=== PATIENT | female | born 1940 | race American Indian/Alaskan Native ===

== ENCOUNTER 2017-01-24 04:47 | Inpatient (IN) | payer MEDICARE, BC ==
[2017-01-24] MEDS ORDERED: Nitroglycerin 2% Ointment Foilpak UD TOP STA (05:10)
[2017-01-24] MEDS ORDERED: Morphine 2 mg/ml ISec IVP STA (05:10)
--- NOTE | 2017-01-24 05:12 | ED PDOC ---
Arrival/HPI - General Chief Complaint: Chest Pain Time Seen by Provider: 01/24/17 05:00 Historian: Patient - Critical Care Critical Care Minutes: 30 minutes - History of Present Illness Narrative History of Present Illness (Text): 01/24/17 05:08 Daniela Salazar is a 76 year old female, with a history of diabetes, hypertension, and CAD with stents, presents to the emergency department complaining of midsternal chest pain which began few hours prior to arrival. Patient describes quality as a sharp stabbing pain which radiates to the back. Notes that she was cleaning her room when the symptoms initially presented. En route, patient was give 3 81mg Aspirin and nitroglycerin. Denies any shortness of breath. Denies fever, chills, headache, dizziness, nausea, vomiting, diarrhea, urinary symptoms , or any other complaints at this time. Time/Duration: 4-6 hours Symptom Onset: Gradual Symptom Course: Unchanged Severity Level: Mild Activities at Onset: Light Past Medical History - Provider Review Nursing Documentation Reviewed: Yes - Infectious Disease Hx of Infectious Diseases: None - Tetanus Immunization Tetanus Immunization: >10 years Ago - Cardiac Hx Cardiac Disorders: Yes Hx Hypertension: Yes - Pulmonary Hx Respiratory Disorders: No - Neurological Hx Neurological Disorder: Yes Hx Dizziness: Yes Other/Comment: vertigo t-1 - HEENT Hx HEENT Disorder: No - Renal Hx Renal Disorder: No - Endocrine/Metabolic Hx Endocrine Disorders: Yes Hx Diabetes Mellitus Type 2: Yes - Hematological/Oncological Hx Blood Disorders: No - Integumentary Hx Dermatological Disorder: No - Musculoskeletal/Rheumatological Hx Musculoskeletal Disorders: Yes Hx Arthritis: Yes Hx Osteoarthritis: Yes Hx Unsteady Gait: Yes - Gastrointestinal Hx Gastrointestinal Disorders: No - Genitourinary/Gynecological Hx Genitourinary Disorders: Yes Other/Comment: hesitency urinating - Psychiatric Hx Psychophysiologic Disorder: No Hx Substance Use: No - Past Surgical History Past Surgical History: No Previous - Surgical History Hx Hysterectomy: Yes Hx Open Heart Surgery: No Hx Orthopedic Surgery: No Hx Splenectomy: No Hx Valve Replacement: No - Anesthesia Hx Anesthesia: Yes Hx Anesthesia Reactions: No - Suicidal Assessment Feels Threatened In Home Enviroment: No Family/Social History - Physician Review Nursing Documentation Reviewed: Yes Family/Social History: No Known Family HX Smoking Status: Never Smoked Hx Alcohol Use: No Hx Substance Use: No Hx Substance Use Treatment: No Allergies/Home Meds Allergies/Adverse Reactions: Allergies No Known Allergies Allergy (Verified 01/24/17 13:39) Home Medications: Home Meds Medication Instructions Recorded Confirmed Insulin Human NPH/Reg [HumuLIN 15 units SUBCUT HS 12/07/14 01/24/17 70/30 (NPH/Reg)] Insulin Human NPH/Reg [HumuLIN 20 units SUBCUT DAILY 12/07/14 01/24/17 70/30 (NPH/Reg)] Amlodipine Besylate/Benazepril 20 mg PO DAILY 01/24/17 01/24/17 [Amlodipine-Benazepril 2.5-10] Isosorbide Mononitrate [Imdur] 60 mg PO DAILY 01/24/17 01/24/17 Metoprolol Succinate [Metoprolol 100 mg PO DAILY 01/24/17 01/24/17 Succinate Xl] Simvastatin [Zocor] 80 mg PO DAILY 01/24/17 01/24/17 hydroCHLOROthiazide [Hydrodiuril] 25 mg PO DAILY 01/24/17 01/24/17 Review of Systems - Physician Review All systems were reviewed & negative as marked: Yes - Review of Systems Constitutional: Normal. absent: Fatigue, Fevers Respiratory: Normal. absent: SOB, Cough, Sputum Cardiovascular: Chest Pain. absent: Palpitations Gastrointestinal: Normal. absent: Abdominal Pain, Diarrhea, Nausea, Vomiting Genitourinary Female: Normal Musculoskeletal: Back Pain Neurological: Normal. absent: Headache, Dizziness Psychiatric: Normal Physical Exam Vital Signs Reviewed: Yes Vital Signs Temp Pulse Resp BP Pulse Ox 01/24/17 08:35 83 20 164/85 H 94 L 01/24/17 08:25 83 20 164/85 H 01/24/17 07:00 86 18 155/80 H 96 01/24/17 05:55 105 H 20 166/96 H 99 01/24/17 05:22 101 H 158/88 H 01/24/17 04:59 98.3 F 107 H 22 158/88 H 95 Temperature: Afebrile Blood Pressure: Hypertensive Pulse: Tachycardic Respiratory Rate: Normal Appearance: Positive for: Well-Appearing, Non-Toxic, Comfortable Pain Distress: None Mental Status: Positive for: Alert and Oriented X 3 - Systems Exam Head: Present: Atraumatic, Normocephalic Pupils: Present: PERRL Extroacular Muscles: Present: EOMI Conjunctiva: Present: Normal Respiratory/Chest: Present: Clear to Auscultation, Good Air Exchange. No: Respiratory Distress, Accessory Muscle Use Cardiovascular: Present: Regular Rate and Rhythm, Normal S1, S2. No: Murmurs Abdomen: Present: Normal Bowel Sounds. No: Tenderness, Distention, Peritoneal Signs, Rebound, Guarding Upper Extremity: Present: Normal Inspection. No: Cyanosis, Edema Lower Extremity: Present: Normal Inspection. No: Edema Neurological: Present: GCS=15, CN II-XII Intact, Speech Normal Skin: Present: Warm, Dry, Normal Color. No: Rashes Psychiatric: Present: Alert, Oriented x 3, Normal Insight, Normal Concentration Medical Decision Making ED Course and Treatment: 01/24/17 05:14 Impression: A 76 year old female who presents to the emergency department complaining of midsternal chest pain radiating to the back. Plan: -- EKG -- Labs, cardiac enzymes -- Chest X-ray -- Aspirin -- Metaprolol -- Morphine -- Nitroglycerin -- Reassess and disposition Progress Notes: 01/24/17 05:16 EKG interpreted by me: Sinus Tachy @ 109 bpm. RBBB. lateral T wave changes. 01/24/17 06:53 Case was d/w .Accepted to his service. on consult.Call placed to his service. - Lab Interpretations Lab Results: 01/24/17 05:10 01/24/17 05:10 Lab Results 01/24/17 05:10: WBC 6.3 D, RBC 4.12, Hgb 11.6 L, Hct 34.3 L, MCV 83.3, MCH 28.2 , MCHC 33.8, RDW 14.3, Plt Count 274, MPV 11.4 H, PT 10.0, INR 0.93, APTT 26.3, Sodium 140, Potassium 4.5, Chloride 104, Carbon Dioxide 24, Anion Gap 17, BUN 38 H, Creatinine 1.5 H, Est GFR ( Amer) 41, Est GFR (Non-Af Amer) 34, Random Glucose 184 H, Calcium 9.1, Total Bilirubin 0.5, AST 23, ALT 31, Alkaline Phosphatase 104, Lactate Dehydrogenase 566, Total Creatine Kinase 73, Troponin I 0.30 H* D, Total Protein 7.4, Albumin 4.0, Globulin 3.4, Albumin/ Globulin Ratio 1.2 - RAD Interpretation Radiology Orders: 01/24/17 05:09 CHEST PORTABLE [RAD] Stat - Medication Orders Current Medication Orders: Acetaminophen (Tylenol 325mg Tab) 650 mg PO Q4H PRN PRN Reason: Pain, moderate (4-7) Alprazolam (Xanax) 0.25 mg PO BID PRN PRN Reason: Anxiety Stop: 02/03/17 08:39 Aspirin (Ecotrin) 81 mg PO DAILY [facility] Last Admin: 01/27/17 10:00 Dose: Atorvastatin Calcium (Lipitor) 40 mg PO DIN [facility] Last Admin: 01/26/17 17:34 Dose: 40 MG Clopidogrel Bisulfate (Plavix) 75 mg PO DAILY [facility] Last Admin: 01/27/17 10:00 Dose: Insulin Human Regular (Humulin R Med) 0 units SC ACHS [facility] PRN Reason: Protocol Last Admin: 01/27/17 07:57 Dose: Lisinopril (Zestril) 10 mg PO DAILY [facility] Last Admin: 01/26/17 09:01 Dose: 10 MG Metoprolol Succinate (Toprol Xl) 100 mg PO DAILY [facility] Last Admin: 01/27/17 10:00 Dose: Discontinued Medications Aspirin (Aspirin) 325 mg PO ONCE STA Stop: 01/24/17 05:11 Last Admin: 01/24/17 05:22 Dose: 325 MG Atorvastatin Calcium (Lipitor) 40 mg PO STAT STA Stop: 01/24/17 07:36 Last Admin: 01/24/17 07:55 Dose: 40 MG Atropine Sulfate (Atropine) Confirm Administered Dose 1 mg .ROUTE .STK-MED ONE Stop: 01/27/17 06:58 Last Admin: 01/27/17 07:58 Dose: 1 MG Comments: given IV as per Dr. Negro Atropine Sulfate (Atropine) Confirm Administered Dose 1 mg .ROUTE .STK-MED ONE Stop: 01/27/17 12:39 Bacitracin (Bacitracin) Confirm Administered Dose 1 ea .ROUTE .STK-MED ONE Stop: 01/27/17 12:38 Clopidogrel Bisulfate (Plavix) 300 mg PO ONCE ONE Stop: 01/25/17 14:59 Last Admin: 01/25/17 15:55 Dose: 300 MG Diphenhydramine HCl (Benadryl) Confirm Administered Dose 50 mg .ROUTE .STK-MED ONE Stop: 01/27/17 07:42 Last Admin: 01/27/17 07:40 Dose: 50 MG Comments: given IV as per Dr. Negro Fentanyl (Fentanyl) Confirm Administered Dose 100 mcg .ROUTE .STK-MED ONE Stop: 01/27/17 07:42 Last Admin: 01/27/17 07:49 Dose: 50 MCG Comments: given IV by Dr. Negro MAR Pain Assessment Document 01/27/17 07:49 [facility] (Rec: 01/27/17 10:13 [facility] [id number]) Pain Reassessment Is this a pain reassessment? No Heparin Sodium (Porcine) (Heparin) 5,000 units IV ONCE STA Stop: 01/24/17 06:52 Last Admin: 01/24/17 07:00 Dose: 5,000 UNITS eMAR Start Stop Document 01/24/17 07:00 YP (Rec: 01/24/17 07:02 YP [id number]) Intravenous Solution Start Date 01/24/17 Start Time 07:02 Heparin Sodium (Porcine) (Heparin) Confirm Administered Dose 10,000 units .ROUTE .STK-MED ONE Stop: 01/27/17 06:59 Last Admin: 01/27/17 07:57 Dose: 4,000 UNITS Comments: given IV as per Dr. Negro Home Med (A C T [place]) Confirm Administered Dose 1 unit XX .STK-MED ONE Stop: 01/27/17 09:27 Home Med (A C T [place]) Confirm Administered Dose 1 unit XX .STK-MED ONE Stop: 01/27/17 12:37 Hydralazine HCl (Apresoline) Confirm Administered Dose 20 mg .ROUTE .STK-MED ONE Stop: 01/27/17 08:28 Last Admin: 01/27/17 08:28 Dose: 20 MG Comments: 0828 10mg given IV as per Dr. Negro 0834 10mg given IV as per Dr. Negro Heparin Sodium/Sodium Chloride (Heparin 90634 Units/250ml 1/2 Normal Saline) 250 mls @ 10 mls/hr IV .Q24H PRN; Protocol; 1,000 UNITS/HR PRN Reason: ADJUST RATE PER MD ORDER Last Admin: 01/26/17 09:02 Dose: 10 MLS/HR Titration Intervention Document 01/26/17 09:02 DEL (Rec: 01/26/17 09:02 DEL [id number]) Titration Intake Container Volume 250 Titration Dosing Titration Dose 1,000 IV Rate 10 Intake/Decrease Running eMAR Start Stop Document 01/26/17 09:02 DEL (Rec: 01/26/17 09:02 [facility] [id number]) Intravenous Solution Start Date 01/26/17 Start Time 09:02 Sodium Chloride (Sodium Chloride 0.45%) 1,000 mls @ 50 mls/hr IV .Q20H LEON Last Admin: 01/26/17 18:54 Dose: 50 MLS/HR eMAR Start Stop Document 01/26/17 18:54 DEL (Rec: 01/26/17 18:54 DEL [id number]) Intravenous Solution Start Date 01/26/17 Start Time 18:54 Heparin Sodium (Porcine) (Heparin 1000 Units/500 Ml Ns) Confirm Administered Dose 1,500 mls @ ud IV .STK-MED ONE Stop: 01/27/17 06:59 Iodixanol (Visipaque) Confirm Administered Dose 150 ml IV .STK-MED ONE Stop: 01/27/17 06:59 Iodixanol (Visipaque 320 Mg/Ml 100 Ml) Confirm Administered Dose 100 ml IV .STK- MED ONE Stop: 01/27/17 08:23 Last Admin: 01/27/17 10:14 Dose: Iohexol (Omnipaque 350mg/Ml 50 Ml) Confirm Administered Dose 50 ml .ROUTE .STK- MED ONE Stop: 01/27/17 07:57 Lidocaine HCl (Lidocaine 2% 20ml Vial) Confirm Administered Dose 20 ml .ROUTE .STK-MED ONE Stop: 01/27/17 06:58 Last Admin: 01/27/17 07:50 Dose: 8 ML Comments: given subcutaneously by Dr. Negro Metoprolol Tartrate (Lopressor) 25 mg PO ONCE STA Stop: 01/24/17 05:11 Last Admin: 01/24/17 05:22 Dose: 25 MG MAR Pulse and Blood Pressure Document 01/24/17 05:22 YP (Rec: 01/24/17 05:23 YP [id number]) Pulse Pulse Rate (60-90) 101 Blood Pressure Blood Pressure (100/60-150/90) 158/88 Midazolam HCl (Versed Inj) Confirm Administered Dose 2 mg .ROUTE .STK-MED ONE Stop: 01/27/17 07:42 Last Admin: 01/27/17 07:49 Dose: 2 MG Comments: given IV by Dr. Negro Morphine Sulfate (Morphine) 2 mg IVP STAT STA Stop: 01/24/17 05:11 Last Admin: 01/24/17 05:23 Dose: 2 MG MAR Pain Assessment Document 01/24/17 05:23 YP (Rec: 01/24/17 05:23 YP [id number]) Pain Reassessment Is this a pain reassessment? No Sleep Is patient sleeping during reassessment? No Presence of Pain Presence of Pain Yes IVP Administration Document 01/24/17 05:23 YP (Rec: 01/24/17 05:23 YP [id number]) Charges for Administration # of IVP Administrations 1 Nitroglycerin (Nitro-Bid 2% Oint) 1 ea TOP ONCE STA Stop: 01/24/17 05:11 Last Admin: 01/24/17 05:23 Dose: 1 EA Non-Formulary Medication (Metoprolol Succinate [Metoprolol Succinate]) 100 mg PO DAILY LEON Ondansetron HCl (Zofran Inj) 4 mg IVP ONCE ONE Stop: 01/27/17 10:03 Last Admin: 01/27/17 10:15 Dose: 4 MG IVP Administration Document 01/27/17 10:15 SG (Rec: 01/27/17 10:15 SG [id number]) Charges for Administration # of IVP Administrations 1 Pneumococcal Polyvalent Vaccine (Pneumovax 23 Vaccine) 0.5 ml IM .ONCE ONE Stop: 01/24/17 17:25 - Scribe Statement The provider has reviewed the documentation as recorded by the Nik Levin Provider Attestation: All medical record entries made by the Nik were at my direction and personally dictated by me. I have reviewed the chart and agree that the record accurately reflects my personal performance of the history, physical exam, medical decision making, and the department course for this patient. I have also personally directed, reviewed, and agree with the discharge instructions and disposition. Disposition/Present on Arrival - Present on Arrival Any Indicators Present on Arrival: No History of DVT/PE: No History of Uncontrolled Diabetes: No Urinary Catheter: No History of Decub. Ulcer: No History Surgical Site Infection Following: None - Disposition Have Diagnosis and Disposition been Completed?: Yes Diagnosis: Chest pain, NSTEMI (non-ST elevated myocardial infarction) Disposition: HOSPITALIZED Disposition Time: 06:50 Patient Plan: ICU Patient Problems: Current Active Problems Problem Status Diagnosed Chest pain Acute NSTEMI (non-ST elevated myocardial infarction) Acute Condition: STABLE
[2017-01-24 05:38] LABS: HEMATOCRIT 34.3 % (36.0-48.0); MEAN CELL VOLUME 83.3 fL (80.0-105.0); MEAN CORPUSCULAR HEMOGLOBIN 28.2 pg (25.0-35.0); MEAN CORPUSCULAR HGB CONC 33.8 g/dl (31.0-37.0); MEAN PLATELET VOLUME 11.4 fl (7.0-11.0); RED CELL DISTRIBUTION WIDTH 14.3 % (11.5-14.5); WHITE BLOOD COUNT 6.3 10^3/ul (4.5-11.0)
[2017-01-24 05:44] LABS: ALB/GLOB RATIO 1.2 (1.1-1.8); BILIRUBIN,TOTAL 0.5 mg/dL (0.2-1.3); CALCIUM 9.1 mg/dL (8.4-10.5); POTASSIUM 4.5 mmol/L (3.6-5.0); TOTAL PROTEIN 7.4 g/dL (5.8-8.3)
[2017-01-24 05:48] LABS: INR 0.93 (0.93-1.08); PARTIAL THROMBOPLASTIN TIME 26.3 Seconds (23.7-30.8)
[2017-01-24 06:43] LABS: TROPONIN I 0.3 ng/mL
[2017-01-24] MEDS: Heparin25000 units/250ml 1/2NS 250 ML IV PRN (07:02)
--- NOTE | 2017-01-24 08:20 | HP ---
CHIEF COMPLAINT AND HISTORY OF PRESENT ILLNESS: This is a 76-year-old female who is coming into the hospital with a past medical history of hypertension, diabetes type 2, coronary artery disease with s florian. She says that she sees Dr. Benson, who is her sanding machine tender. She started having substernal chest pain. She says it was stabbing, it was radiating to the back. She said the pain was about 4-5 /10. She said this happened while she was exerting herself and cleaning her room. She had no diapho resis, no nausea, no vomiting, no dysuria or frequency. No abdominal pain, no lower back pain, no dy suria, no weakness in the arms or the legs. REVIEW OF SYSTEMS: All other review of symptoms are within normal limits, except as mentioned. ALLERGIES: No known drug allergies. HOME MEDICATIONS: 1. Amlodipine/benazepril. 2. Hydrochlorothiazide. 3. Insulin 70/30 as 50 and 20 units. 4. Isosorbide. 5. Metoprolol. 6. Simvastatin. PAST MEDICAL HISTORY: As above. 1. Hypertension. 2. Dyslipidemia. 3. Diabetes type 2. 4. Osteoarthritis. SOCIAL HISTORY: She says she does not smoke or drink. She lives at home. FAMILY HISTORY: She says her parents of old age. VITALS: Temperature is 98.3, pulse of 107, blood pressure is 158/88, respiration is 22, O2 saturatio n 95%. Height is 5 feet 4 inches. Weight is 166 pounds, BMI is 20.5. PHYSICAL EXAMINATION: GENERAL: Patient lying in bed, flat, and in no apparent distress. HEAD AND NECK EXAM: Atraumatic, normocephalic. Conjunctivae are pink. Throat clear and mouth with moist mucosa. Oropharynx benign. EYES: Extraocular movements are intact. PERRLA. NECK: Supple. No JVD, thyromegaly, or adenopathy. No bruits. HEART: S1 and S2 regular rate and rhythm. No murmurs, rubs, or gallops. LUNGS: Clear to auscultation bilaterally. No wheezing rales or rhonchi appreciated. No retraction s on exam. ABDOMEN: Soft, nontender, nondistended. Bowel sounds are positive in all quadrants. No rebound. No hepatosplenomegaly. EXTREMITIES: No cyanosis, clubbing, or edema. NEURO: No facial asymmetry, tongue is midline, no uvula deviation. Power is 5/5 in upper extremity and 5/5 in lower extremity. Sensation is normal in upper extremity and lower extremity. PSYCH: Awake, alert, oriented x3. No anxiety or depression symptoms. Good insight. Normal affec t. : No CVA tenderness VASCULAR: 2+ pulses in carotid and pedal pulses. SKIN: No erythema or abnormal nodules noted. SPINE: Normal curvature. LYMPHADENOPATHY: No anterior cervical or posterior cervical adenopathy. No inguinal adenopathy. LABORATORIES: White count of 6.3, hemoglobin 11.6. INR is 0.93. Chemistry shows sodium is 140, pot assium is 4.5, creatinine is 1.5. Baseline creatinine is 1.3. Bicarb of 24, albumin is 4.0. Chest x-ray shows no infiltrates. EKG shows sinus tachycardia at 109, right bundle branch block, some nonspecific ST-T wave changes. ASSESSMENT: 1. Chest pain. 2. Coronary artery disease with stenting. 3. Diabetes type 2. 4. Hypertension. 5. Dyslipidemia. PLAN: The patient is going to be admitted to the hospital. She has a history of coronary artery dis ease. She is going to be placed on heparin. She will need evaluation by Dr. Benson. She does have a troponin that is positive. She is going to be placed on aspirin, beta-blockers, metoprolol. She i s going to be placed on insulin. The patient is on simvastatin for dyslipidemia. Will await further input from the sanding machine tender. Will do fingersticks and insulin sliding scale. Jose Berkowitz MD cc: [id number] TT: 01/24/2017 08:19:10 alex
--- NOTE | 2017-01-24 09:13 | RAD ---
HISTORY: chest pain COMPARISON: 12/07/2014 FINDINGS: LUNGS: No active pulmonary disease. PLEURA: No significant pleural effusion identified, no pneumothorax apparent. CARDIOVASCULAR: Normal. OSSEOUS STRUCTURES: No significant abnormalities. VISUALIZED UPPER ABDOMEN: Normal. OTHER FINDINGS: None. IMPRESSION: No active disease.
--- NOTE | 2017-01-24 09:37 | CARD ---
APPROVED REPORT EKG Measurement Heart [id number] <Conclusion> Sinus tachycardia Possible Left atrial enlargement Right bundle branch block with ST elevations V 3 - 5 STTW changes c/w ischemia and possible injury pattern, new IMI, old
[2017-01-24] MEDS ORDERED: METOPROLOL SUCCINATE 100 MG PO SCH (10:00)
[2017-01-24] MEDS: Metoprolol Succinate 100 mg XL Tab PO SCH (10:18)
[2017-01-24] MEDS: Insulin Reg-MEDIUM-Coverage SC SCH ×3 (12:15→22:38)
[2017-01-24] MEDS: Insulin Human NPH/Reg 70/30 Vial(3 ml) SC SCH (16:42)
[2017-01-24 17:24] VITALS: BMI 28.5
[2017-01-24] MEDS ORDERED: Pneumococcal 23-Valent Vaccine IM ONE (17:24)
--- NOTE | 2017-01-25 08:08 | PN ---
DATE: 01/25/2017 SUBJECTIVE: The patient has no complaints of any chest pain or shortness of breath, no headaches or dizziness. PHYSICAL EXAMINATION: VITAL SIGNS: Temperature is 98.2, pulse of 99, blood pressure 147/85, respirations 20. GENERAL: The patient comfortable, in no acute distress. HEENT: Anicteric sclerae. Moist mucosa. NECK: No JVD or adenopathy. CARDIAC: S1/S2. No murmurs. No rubs. Regular. RESPIRATORY: Clear to auscultation bilaterally. No wheezes, rales, or rhonchi. Good air entry. ABDOMEN: Bowel sounds are positive, soft, nontender, and nondistended. EXTREMITIES: No edema. Has 1+ pulses. LABS: White count is 6.3, hemoglobin 11.6, potassium is 4.5, creatinine is 1.5. ASSESSMENT: 1. Chest pain. 2. Coronary artery disease with stenting. 3. Diabetes, type 2. 4. Hypertension. 5. Dyslipidemia. PLAN: The patient is currently comfortable. She is on heparin for her elevated troponins. She has had 3 troponins that have been elevated. Dr. Benson had been placed on consult. She is on metoprolo l. She is on lisinopril for her hypertension. She is tolerating her diet. She is going to continue with aspirin daily; she was given a dose yesterday. Will await further input from Dr. Benson. Jose Berkowitz MD cc: [id number] TT: 01/25/2017 08:08:16 Confirmation # [id number] Dictation # [id number] mn
[2017-01-25] MEDS: Insulin Reg-MEDIUM-Coverage SC SCH ×3 (08:18→16:26)
[2017-01-25] MEDS: Insulin Human NPH/Reg 70/30 Vial(3 ml) SC SCH ×2 (08:19→16:26)
[2017-01-25] MEDS: Heparin25000 units/250ml 1/2NS 250 ML IV PRN (08:43)
[2017-01-25 09:38] LABS: BILIRUBIN,TOTAL 0.6 mg/dL (0.2-1.3); CALCIUM 9.2 mg/dL (8.4-10.5); MAGNESIUM 2.1 mg/dL (1.7-2.2); POTASSIUM 4.5 mmol/L (3.6-5.0); TOTAL PROTEIN 8.1 g/dL (5.8-8.3)
[2017-01-25 10:06] LABS: ADD MANUAL DIFF? NO
[2017-01-25 10:10] LABS: BASO # 0.02 K/mm3 (0.0-2.0); BASO % 0.3 % (0.0-3.0); EOS # 0.2 (0.0-0.7); EOS % 2.6 % (1.5-5.0); GRAN % 55.9 % (50.0-68.0); HEMATOCRIT 35.1 % (36.0-48.0); LYMPH # 2.2 (1.2-3.4); LYMPH % 33.6 % (22.0-35.0); MEAN CELL VOLUME 83.6 fL (80.0-105.0); MEAN CORPUSCULAR HEMOGLOBIN 27.4 pg (25.0-35.0); MEAN CORPUSCULAR HGB CONC 32.8 g/dl (31.0-37.0); MEAN PLATELET VOLUME 11.6 fl (7.0-11.0); MONO # 0.5 (0.1-0.6); MONO % 7.6 % (1.0-6.0); PLATELET COUNT 277 10^3/uL (120.0-450.0); RED CELL DISTRIBUTION WIDTH 14.4 % (11.5-14.5); WHITE BLOOD COUNT 6.5 10^3/ul (4.5-11.0)
[2017-01-25] MEDS: Metoprolol Succinate 100 mg XL Tab PO SCH (10:14)
[2017-01-25 10:51] LABS: THYROID STIMULATING HORMONE 3.99 mIU/mL (0.46-4.68)
--- NOTE | 2017-01-25 15:31 | CON ---
DATE: 01/25/2017 REQUESTING PHYSICIAN: Dr. Berkowitz. REASON FOR CONSULTATION: Chest pain. HISTORY OF PRESENT ILLNESS: This is a 76-year-old woman known to us. The patient was admitted with retrosternal chest discomfort. She has known coronary disease and underwent PCI in 1997 with a stent to her obtuse marginal branch. Her last catheterization was in 2003, at which time she was found to have diffuse 3-vessel coronary artery disease and was treated medically. She does have a history of hypertension, diabetes and hyperlipidemia. She has cerebrovascular disease and underwent left carot id endarterectomy in 2003. She has had a prior total abdominal hysterectomy performed as well. She states that her pain was better after eructation and believes that a lot of her symptoms were due to gas. The pain radiated to her back at times. MEDICATIONS: At home include Lotrel, hydrochlorothiazide, insulin, Imdur, metoprolol and simvastatin . SOCIAL HISTORY: She does not smoke or drink. FAMILY HISTORY: Both parents from age-related illness. REVIEW OF SYSTEMS: A 10 point review of systems is otherwise unremarkable. PHYSICAL EXAMINATION: GENERAL: She is an elderly woman who appears comfortable at rest. VITAL SIGNS: Her blood pressure is 150/80 with a pulse of 90 in sinus, respirations are 16. She is currently afebrile. HEENT: No JVD. Pupils equal and react to light and accommodation. NECK: Supple. CHEST: A few scattered rhonchi. HEART: PMI displaced laterally with a systolic murmur left sternal border. ABDOMEN: Soft, nontender, normoactive bowel sounds. EXTREMITIES: No clubbing, cyanosis, edema. SKIN: Warm and dry. PSYCHIATRIC: Normal mood and affect. NEUROLOGIC: Alert and oriented x 3. No gross motor or sensory deficits appreciated. DIAGNOSTIC DATA: Electrocardiogram reveals sinus rhythm with left atrial abnormality, right bundle b ranch block, possible inferior myocardial infarction pattern is noted. Chest x-ray reveals normal ca rdiac silhouette with bilateral clear lung mclaughlin. White count 6.5, hemoglobin and hematocrit 11.5 a nd 35.1 with a platelet count of 277,000. PTT 63.7, potassium 4.5, BUN and creatinine are 31 and 1.4 . Cholesterol 201, triglycerides 269, HDL 47, LDL of 90. Initial troponin was 1.4, repeat 2.73, fol lowup is 1.5. IMPRESSION: 1. Apparent non-ST segment elevation myocardial infarction, clinically stable at present. 2. Known coronary artery disease. 3. Rest of problems as noted. RECOMMENDATIONS: A discussion was had regarding her current situation with the patient and her daugh ter at the bedside. A repeat cardiac catheterization appears appropriate at this time. The timing o f this will need to be arranged. In the interim, a followup EKG and cardiac enzymes will be planned. Plavix will be added to her regimen and beta jaspreet therapy has been initiated. We will continue to follow along and make further recommendations as appropriate. Thank you for this consultation. Guido Negro MD cc: [id number] TT: 01/25/2017 15:30:45 Confirmation # [id number] Dictation # [id number] pantera
--- NOTE | 2017-01-26 08:08 | PN ---
DATE: 01/26/2017 SUBJECTIVE: The patient has no complaints of any chest pain, no shortness of breath, no headaches, n o dizziness. PHYSICAL EXAMINATION: VITAL SIGNS: Temperature is 97.7, pulse of 90, blood pressure is 148/79, respirations 20. GENERAL: The patient comfortable, in no acute distress. HEENT: Anicteric sclerae. Moist mucosa. NECK: No JVD or adenopathy. CARDIAC: S1/S2. No murmurs. No rubs. Regular. RESPIRATORY: Clear to auscultation bilaterally. No wheezes, rales, or rhonchi. Good air entry. ABDOMEN: Bowel sounds are positive, soft, nontender, and nondistended. EXTREMITIES: No edema. Has 1+ pulses. LABORATORIES: White count of 6.5, hemoglobin 11.5. Creatinine is 1.4. ASSESSMENT: 1. Non-ST elevation myocardial infarction. 2. Coronary artery disease with stent. 3. Diabetes type 2. 4. Hypertension. 5. Dyslipidemia. PLAN: The patient is currently comfortable. She is being followed by cardiology. She may need a ca rdiac catheterization. The patient is on aspirin and metoprolol for coronary artery disease. The pa wyatt is on insulin for her diabetes. She is on Lipitor for dyslipidemia. She is going to be on Zes tril for hypertension. She is on carbohydrate consistent diet. We will await input from cardiology about the timing of her cath. Jose Berkowitz MD cc: [id number] TT: 01/26/2017 08:08:26 Confirmation # [id number] Dictation # [id number]
[2017-01-26] MEDS: Insulin Human NPH/Reg 70/30 Vial(3 ml) SC SCH ×2 (08:29→17:29)
[2017-01-26] MEDS: Insulin Reg-MEDIUM-Coverage SC SCH ×5 (08:30→23:56)
[2017-01-26 08:33] LABS: CALCIUM 9.2 mg/dL (8.4-10.5); POTASSIUM 4.3 mmol/L (3.6-5.0)
[2017-01-26 08:33] LABS: HEMATOCRIT 36.1 % (36.0-48.0); MEAN CORPUSCULAR HEMOGLOBIN 27.2 pg (25.0-35.0); MEAN CORPUSCULAR HGB CONC 32.4 g/dl (31.0-37.0); RED CELL DISTRIBUTION WIDTH 14.8 % (11.5-14.5); WHITE BLOOD COUNT 6.8 10^3/ul (4.5-11.0)
[2017-01-26 08:48] LABS: TROPONIN I 1.07 ng/mL
[2017-01-26] MEDS: Metoprolol Succinate 100 mg XL Tab PO SCH (09:01)
[2017-01-26] MEDS: Heparin25000 units/250ml 1/2NS 250 ML IV PRN (09:02)
--- NOTE | 2017-01-26 09:38 | CP.PCM.PN ---
Subjective - Date & Time of Evaluation Date of Evaluation: 01/26/17 Time of Evaluation: 08:00 - Subjective Subjective: Stable on 2R. No chest pain or SOB. She feels better. I discussed her case with Dr. Negro. Cath advised>tomorrow AM. V/S noted. RSR PE: Lungs: clear Cor.: S1S2 Abd.: soft. Ext.: no edema Neuro.; alert ECG: RSR, RBBB, STTW changes Trop = 1.07 Objective - Vital Signs/Intake and Output Vital Signs (last 24 hours): Temp Pulse Resp BP Pulse Ox 98.4 F 100 H 20 140/70 96 01/26/17 06:00 01/26/17 09:01 01/26/17 06:00 01/26/17 09:01 01/26/17 06:00 Intake and Output: 01/26/17 01/26/17 06:59 18:59 Intake Total 360 Balance 360 - Medications Medications: Current Medications Aspirin (Ecotrin) 81 mg PO DAILY ON LICENSE OF [facility] Last Admin: 01/26/17 09:02 Dose: 81 mg Atorvastatin Calcium (Lipitor) 40 mg PO DIN ON LICENSE OF [facility] Last Admin: 01/25/17 16:26 Dose: 40 mg Clopidogrel Bisulfate (Plavix) 75 mg PO DAILY ON LICENSE OF [facility] Last Admin: 01/26/17 09:01 Dose: 75 mg Heparin Sodium/Sodium Chloride (Heparin 80412 Units/250ml 1/2 Normal Saline) 250 mls @ 10 mls/hr IV .Q24H PRN; Protocol; 1,000 UNITS/HR PRN Reason: ADJUST RATE PER MD ORDER Last Admin: 01/26/17 09:02 Dose: 10 mls/hr Insulin Human Regular (Humulin R Med) 0 units SC ACHS ON LICENSE OF [facility] PRN Reason: Protocol Last Admin: 01/26/17 08:30 Dose: Not Given Lisinopril (Zestril) 10 mg PO DAILY ON LICENSE OF [facility] Last Admin: 01/26/17 09:01 Dose: 10 mg Metoprolol Succinate (Toprol Xl) 100 mg PO DAILY ON LICENSE OF [facility] Last Admin: 01/26/17 09:01 Dose: 100 mg - Labs Labs: 01/26/17 07:00 01/26/17 07:20 PT 10.0 Seconds (9.9-11.8) 01/24/17 05:10 INR 0.93 (0.93-1.08) 01/24/17 05:10 APTT 63.9 Seconds (23.7-30.8) H 01/26/17 07:00 Assessment and Plan - Assessment and Plan (Free Text) Plan: Assessment: CP/Acute [place] CAD/remote PCI HBP Diabetes HLD CVD/CEA CKD, Cr 1.6 today Plan: Cardiac cath/Poss PCI in AM 4/14 Continue current meds IVF tonight pre-cath OOB to chair. Additional recs to follow cath.
--- NOTE | 2017-01-26 10:41 | CARD ---
APPROVED REPORT EKG Measurement Heart [id number] NV [id number] [id number] <Conclusion> Normal sinus rhythm Right bundle branch block T wave abnormality, consider lateral ischemia Abnormal ECG
[2017-01-26] MEDS ORDERED: Sodium Chloride 0.45% 1,000 ML IV SCH (19:00)
[2017-01-27] MEDS: Metoprolol Succinate 100 mg XL Tab PO SCH ×2 (06:48→10:00)
[2017-01-27] MEDS ORDERED: Lidocaine 2% Inj (20ml) ONE (06:57)
[2017-01-27] MEDS ORDERED: Iodixanol 320 mg/ml 150 ml Bottle IV ONE (06:58)
[2017-01-27] MEDS ORDERED: DiphenhydrAMINE 50 mg/ml Inj ONE (07:41)
[2017-01-27] MEDS ORDERED: Midazolam 2 MG/2 ML VIAL ONE (07:41)
[2017-01-27] MEDS ORDERED: Iohexol 350mgl/ml 50 ML ONE (07:56)
[2017-01-27] MEDS: Insulin Reg-MEDIUM-Coverage SC SCH ×4 (07:57→21:35)
--- NOTE | 2017-01-27 07:57 | CP.PCM.PN ---
Subjective - Date & Time of Evaluation Date of Evaluation: 01/27/17 Time of Evaluation: 07:00 - Subjective Subjective: Stable on 2R. Quiet night. No CP or SOB. V/S noted PE: Lungs: clear Cor.: S1S2 Abd.: soft Ext.: no edema Neuro.: alert Echo: Prelim: Nl LV Labs pending. Objective - Vital Signs/Intake and Output Vital Signs (last 24 hours): Temp Pulse Resp BP Pulse Ox 98.2 F 89 20 143/84 94 L 01/27/17 06:00 01/27/17 06:48 01/27/17 06:00 01/27/17 06:48 01/27/17 06:00 Intake and Output: 01/27/17 01/27/17 06:59 18:59 Intake Total 1240 Balance 1240 - Medications Medications: Current Medications Aspirin (Ecotrin) 81 mg PO DAILY [facility] Last Admin: 01/27/17 06:48 Dose: 81 mg Atorvastatin Calcium (Lipitor) 40 mg PO DIN [facility] Last Admin: 01/26/17 17:34 Dose: 40 mg Clopidogrel Bisulfate (Plavix) 75 mg PO DAILY [facility] Last Admin: 01/27/17 06:48 Dose: 75 mg Heparin Sodium/Sodium Chloride (Heparin 14736 Units/250ml 1/2 Normal Saline) 250 mls @ 10 mls/hr IV .Q24H PRN; Protocol; 1,000 UNITS/HR PRN Reason: ADJUST RATE PER MD ORDER Last Admin: 01/26/17 09:02 Dose: 10 mls/hr Sodium Chloride (Sodium Chloride 0.45%) 1,000 mls @ 50 mls/hr IV .Q20H [facility] Last Admin: 01/26/17 18:54 Dose: 50 mls/hr Insulin Human Regular (Humulin R Med) 0 units SC ACHS [facility] PRN Reason: Protocol Last Admin: 01/26/17 23:56 Dose: Not Given Lisinopril (Zestril) 10 mg PO DAILY [facility] Last Admin: 01/26/17 09:01 Dose: 10 mg Metoprolol Succinate (Toprol Xl) 100 mg PO DAILY [facility] Last Admin: 01/27/17 06:48 Dose: 100 mg - Labs Labs: 01/26/17 07:00 01/26/17 07:20 PT 10.0 Seconds (9.9-11.8) 01/24/17 05:10 INR 0.93 (0.93-1.08) 01/24/17 05:10 APTT 36.4 Seconds (23.7-30.8) H 01/27/17 06:55 Assessment and Plan - Assessment and Plan (Free Text) Plan: Assessment: CP/SOB/+ trops/acute [place] CAD/remote PCIs HBP Diabetes HLD CVD/CEA Plan: Cardiac cath/cor. angios/pos. PCI today Additional recs to follow.
[2017-01-27] MEDS ORDERED: Iodixanol 320 MG/ML 100 ML BOTTLE IV ONE (08:22)
--- NOTE | 2017-01-27 09:22 | CARDCATH ---
PROCEDURE DATE: 01/27/2017 PROCEDURES: 1. Selective left and right coronary angiography. 2. Left ventriculography. 3. PCI of mid LAD with drug-eluting stent. 4. Temporary transvenous pacemaker placement. 5. Right femoral arteriography. 6. Angio-Seal deployment. HISTORY OF PRESENT ILLNESS: This is a 76-year-old woman with known coronary artery disease, admitted with a non-ST segment elevation myocardial infarction. Cardiac catheterization was advised. INDICATION: Myocardial infarction. FINDINGS: HEMODYNAMICS: The aortic pressure was 180/70 with a left ventricular pressure of 180/20. CORONARY ANATOMY: 1. The left mainstem was calcified and normal. 2. Left anterior descending artery had a patent stent in its mid portion. Shortly beyond the stente d segment in the mid portion, there was a 95% stenosis in a tortuous segment of the vessel. The LAD was large and wrapped around the apex. CIARA grade III flow was present. The diagonal branches had m ild disease. 3. The left circumflex artery gave rise to 2 moderate sized obtuse marginal branches. In the mid po rtion of the circumflex, there was an 80% stenosis present. 4. The right coronary artery was large and dominant and mildly calcified. In the mid portion of the vessel, there was a 70% stenosis present and the early distal segment also had a 70% irregular steno sis. The posterolateral branch appeared occluded and filled the left to right collaterals. LEFT VENTRICULOGRAPHY: Left ventriculogram was performed in the [place]ND[place] projection revealing mild apical hypokinesis with interval ejection fraction of 50%. With insertion of the catheter into the left ve ntricle, the patient developed ventricular asystole with non-conducted P waves. The patient had an u nderlying right bundle branch block present. The non-conducted P waves persisted for approximately 2 0 seconds. Atropine was administered. Ultimately, a ventricular escape rhythm returned with narrow complex, which eventually converted to a 2:1 AV block and subsequently sinus rhythm. With restoratio n of the ventricular escape rhythm, she was hemodynamically stable. Given the above findings, a temporary transvenous pacemaker is placed through the right femoral vein for backup pacing purposes in the event any further dysrhythmias occurred during the coronary interve ntion. This was performed under fluoroscopic guidance without difficulty. CORONARY INTERVENTION: 4000 units of intravenous heparin was administered and the ACT was 230 second s during the procedure. A 3.5 EBU guide catheter was utilized and the lesion in the LAD successfully crossed with use of a [place] wire. Following this, a 2.5 mm x 10 mm balloon was advanced to the sit e of the lesion and inflated to 8 atmospheres. The balloon was then withdrawn and a 2.75 mm x 12 mm Resolute drug-eluting stent was advanced to the site of the lesion. This was inflated to 9 atmospher es. The stent overlapped the old stent as well distally. The balloon was then withdrawn and a secon d inflation performed at the overlapped segment of the 2 stents to 12 atmospheres. There was 0% resi dual stenosis following the intervention. CIARA 3 grade flow was present. RIGHT FEMORAL ARTERIOGRAPHY: Right femoral arteriogram was performed in the HERNDON protection. This re vealed mild diffuse atherosclerotic disease with mild to moderate vessel calcification in the common iliac. The puncture site in the common femoral artery was closed successfully with deployment of an Angio-Seal device. The venous sheath was sutured in place and will be removed 1-2 hours later once A CT has normalized. CONCLUSIONS: 1. Severe mid left anterior descending stenosis. 2. Patent left anterior descending stent. 3. Severe right coronary artery and circumflex system disease. 4. Mildly reduced left ventricular systolic function. 5. Successful percutaneous coronary intervention of the mid left anterior descending with placement of a 2.75 mm x 12 mm Resolute drug-eluting stent. RECOMMENDATIONS: Aspirin and Plavix therapy will be continued for at least 1 year. Plans will be ma de for staged intervention of the circumflex and right coronary artery. The patient will be observed overnight for any significant dysrhythmias. However, given her baseline right bundle branch block a nd ventricular asystole induced with catheter placement in the left ventricle, this was likely second gennaro to left bundle branch block trauma, which successfully resolved. If she has evidence of conducti on abnormalities, a conduction study can be planned. Guido Negro MD cc: [phone] TT: 01/27/2017 09:21:32 en
[2017-01-27] MEDS ORDERED: A C T ELECTRONICS XX ONE ×2 (09:26→12:36)
--- NOTE | 2017-01-27 10:33 | CARD ---
APPROVED REPORT EXAM: Two-dimensional and M-mode echocardiogram with Doppler and color Doppler. Other Information Quality : AverageRhythm : INDICATION Chest Pain , + trops. 2D DIMENSIONS Left Atrium (2D)3.0 (1.6-4.0cm)IVSd1.2 (0.7-1.1cm) LVDd4.4 (3.9-5.9cm)PWd1.2 (0.7-1.1cm) LVDs3.0 (2.5-4.0cm)FS (%) 30.9 % LVEF (%)58.0 (>50%) M-Mode DIMENSIONS Aortic Root3.20 (2.2-3.7cm)Aortic Cusp Exc.1.30 (1.5-2.0cm) Aortic Valve AoV Peak Fajklzev315.0cm/sAoV VTI44.2cmAO Peak GR.14mmHg LVOT Peak Tpxyjjtu12.7cm/sLVOT VTI20.00cmAO Mean GR.9mmHg AI P 1/2 [id number] Mitral Valve MV E Gdeqlbcm32.3cm/sMV A Xxkblqib132.0cm/sE/A ratio0.4 TDI Lateral E' Peak V12.70cm/sMedial E' Peak V3.80cm/sE/Lateral E'4.4 E/Medial E'14.8 Pulmonary Valve PV Peak Tjoybafp75.9cm/sPV Peak Grad.3mmHg Tricuspid Valve TR Peak Cicdxdoa149vp/sRAP APEGIIXB62uqWoZP Peak Gr.12mmHg [id number] LEFT VENTRICLE The left ventricle is normal size. There is mild concentric left ventricular hypertrophy. The left ventricular function is normal. The left ventricular ejection fraction is within the normal range. There is normal LV segmental wall motion. RIGHT VENTRICLE The right ventricle is normal size. ATRIA The left atrium size is normal. The right atrium size is normal. The interatrial septum is intact with no evidence for an atrial septal defect. AORTIC VALVE The aortic valve is mildly to moderately calcified. There is trace aortic regurgitation. MITRAL VALVE The mitral valve is normal in structure. Mitral regurgitation is trace to mild. TRICUSPID VALVE The tricuspid valve is normal in structure. There is mild tricuspid regurgitation. PULMONIC VALVE The pulmonary valve is normal in structure. GREAT VESSELS The aortic root is normal in size. PERICARDIAL EFFUSION There is no pericardial effusion. <Conclusion> The left ventricle is normal size. There is mild concentric left ventricular hypertrophy. The left ventricular function is normal. The aortic valve is mildly to moderately calcified. Aortic sclerosis vs. mild . There is trace aortic regurgitation. Mitral regurgitation is trace to mild.
--- NOTE | 2017-01-27 11:41 | CARD ---
APPROVED REPORT EKG Measurement Heart [id number] MN [id number] [id number] <Conclusion> Sinus tachycardia Right bundle branch block Inferior infarct, age undetermined STTW changes c/w ischemia
--- NOTE | 2017-01-27 12:18 | PN ---
DATE: 01/27/2017 The patient is a 76-year-old, seen and examined, lying in bed, seems to be comfortable, just came haley k from cardiac catheterization. No chest pain, no shortness of breath. PHYSICAL EXAMINATION: VITAL SIGNS: She is afebrile, pulse 89, respirations 20, blood pressure 143/84. LUNGS: Bilateral fair airflow, no rhonchi or crackle. HEART: S1, S2 audible. ABDOMEN: Soft, nontender, no rebound, no guarding. NEUROLOGIC: She is awake and alert, able to communicate. LABORATORY EXAMINATION: Her PTT is 36.4. Chemistry: Blood sugar is 123, troponin 1.07. ASSESSMENT: 1. Status post myocardial infarction, status post cardiac catheterization and right coronary angiogr aphy was done. 2. Severe mid left anterior descending stenosis with patent left anterior descending stent, severe r ight coronary artery and circumflex disease, so patient had mid left anterior descending stent placem ent done today. 3. Insulin-dependent diabetes. 4. Hyperlipidemia. 5. Hypertension. PLAN: The patient will be monitored closely on vehicle monitor technician. We will follow up her CBC and CMP a nd I will continue her on aspirin. Blood sugar will be monitored closely and once sheath is removed, she will be observed for her groin hematoma. Mack Desai MD cc: [phone] TT: 01/27/2017 12:17:26 Confirmation # [id number] Dictation # [id number] en
[2017-01-27] MEDS ORDERED: Bacitracin 500 Units/gm Oint Foilpak UD ONE (12:37)
[2017-01-27 20:16] LABS: MEAN CELL VOLUME 84.7 fL (80.0-105.0); MEAN CORPUSCULAR HEMOGLOBIN 27.5 pg (25.0-35.0); MEAN CORPUSCULAR HGB CONC 32.5 g/dl (31.0-37.0); MEAN PLATELET VOLUME 11.5 fl (7.0-11.0); RED CELL DISTRIBUTION WIDTH 14.9 % (11.5-14.5); WHITE BLOOD COUNT 6.6 10^3/ul (4.5-11.0)
[2017-01-27 20:26] LABS: CALCIUM 8.8 mg/dL (8.4-10.5); MAGNESIUM 2.1 mg/dL (1.7-2.2); POTASSIUM 4.6 mmol/L (3.6-5.0)
[2017-01-28 07:44] LABS: ADD MANUAL DIFF? NO
[2017-01-28 07:59] LABS: BASO # 0.02 K/mm3 (0.0-2.0); BASO % 0.3 % (0.0-3.0); EOS # 0.1 (0.0-0.7); EOS % 1.9 % (1.5-5.0); GRAN # 4.35 (1.4-6.5); GRAN % 63.3 % (50.0-68.0); HEMATOCRIT 33.1 % (36.0-48.0); LYMPH # 1.8 (1.2-3.4); LYMPH % 25.9 % (22.0-35.0); MEAN CELL VOLUME 85.5 fL (80.0-105.0); MEAN CORPUSCULAR HEMOGLOBIN 27.4 pg (25.0-35.0); MEAN PLATELET VOLUME 11.2 fl (7.0-11.0); MONO # 0.6 (0.1-0.6); MONO % 8.6 % (1.0-6.0); PLATELET COUNT 251 10^3/uL (120.0-450.0); WHITE BLOOD COUNT 6.9 10^3/ul (4.5-11.0)
[2017-01-28] MEDS: Insulin Reg-MEDIUM-Coverage SC SCH ×3 (08:14→16:41)
[2017-01-28 08:21] LABS: CALCIUM 9.1 mg/dL (8.4-10.5); POTASSIUM 4.7 mmol/L (3.6-5.0)
--- NOTE | 2017-01-28 08:34 | CP.PCM.PN ---
Subjective - Date & Time of Evaluation Date of Evaluation: 01/28/17 Time of Evaluation: 08:00 - Subjective Subjective: Stable on 2R. S/P cath/PCI LAD. case d/w Dr. Negro and report noted. She had urinary retention last night>Wu inserted. No CP or SOB. She feels well this AM and wants to go home. V/S noted. RSR. No high grade AVB PE: Lungs: clear Cor.: S1S2 Abd.: soft Ext.: no edema. groin OK. Neuro.: alert ECG: RSR, RBBB, IMI, STTW changes Echo: Nl LV, aortic sclerosis vs. mild , trace AI, trace to mild MR Labs noted. Cr. = 1.8 Objective - Vital Signs/Intake and Output Vital Signs (last 24 hours): Temp Pulse Resp BP Pulse Ox 98.2 F 86 20 151/80 H 98 01/28/17 06:04 01/28/17 06:04 01/28/17 06:04 01/28/17 06:04 01/28/17 06:04 Intake and Output: 01/28/17 01/28/17 06:59 18:59 Intake Total 720 Output Total 1575 Balance -855 - Medications Medications: Current Medications Acetaminophen (Tylenol 325mg Tab) 650 mg PO Q4H PRN PRN Reason: Pain, moderate (4-7) Alprazolam (Xanax) 0.25 mg PO BID PRN PRN Reason: Anxiety Stop: 02/03/17 08:39 Aspirin (Ecotrin) 81 mg PO DAILY [facility] Last Admin: 01/27/17 10:00 Dose: Not Given Atorvastatin Calcium (Lipitor) 40 mg PO DIN [facility] Last Admin: 01/27/17 18:05 Dose: 40 mg Clopidogrel Bisulfate (Plavix) 75 mg PO DAILY [facility] Last Admin: 01/27/17 10:00 Dose: Not Given Insulin Human Regular (Humulin R Med) 0 units SC [facility] PRN Reason: Protocol Last Admin: 01/28/17 08:14 Dose: 1 units Lisinopril (Zestril) 10 mg PO DAILY [facility] Last Admin: 01/27/17 18:05 Dose: 10 mg Metoprolol Succinate (Toprol Xl) 100 mg PO DAILY [facility] Last Admin: 01/27/17 10:00 Dose: Not Given - Labs Labs: 01/28/17 07:41 01/27/17 20:00 PT 10.0 Seconds (9.9-11.8) 01/24/17 05:10 INR 0.93 (0.93-1.08) 01/24/17 05:10 APTT 36.4 Seconds (23.7-30.8) H 01/27/17 06:55 Assessment and Plan - Assessment and Plan (Free Text) Plan: Assessment: CP/SOB/+ trops/acute [place] PCI LAD 01/27/17 with residual severe C.A. and RCA lesions > staged PCIs planned CAD/remote PCIs HBP Diabetes HLD CVD/CEA RBBB with CHB during LVGram. Plan: D/C Wu and ambulate after breakfast. Home later today. D/C meds as on admission + ASA 81/day and Plavix 75/day (min. 1 year). Office f/u next week and will schedule staged C.A. and RCA PCI.
[2017-01-28] MEDS: Metoprolol Succinate 100 mg XL Tab PO SCH (09:31)
[2017-01-28] MEDS ORDERED: Dextrose 5%/0.45% NS 1,000 ML IV SCH (10:30)
[2017-01-28 17:10] VITALS: BP 171/84; PULSE 93; RESP 18; TEMP 98.1; O2SAT 93
--- NOTE | 2017-01-28 20:26 | DS ---
The patient is a 76-year-old, seen and examined, lying in bed, seems to be comfortable. No chest lambert n, no shortness of breath, anxious to go home. PHYSICAL EXAMINATION: VITAL SIGNS: She is afebrile, pulse 89, respirations 20, blood pressure 113/73. LUNGS: Bilateral fair airflow, no rhonchi or crackle. HEART: S1, S2 audible. ABDOMEN: Soft, nontender, no rebound, no guarding. NEUROLOGIC: She is awake and alert, communicative. Moves all extremities. No bruises in the groin. LABORATORY EXAM: WBC 6.9, hemoglobin 10.6, hematocrit 33.1, platelets 251. Chemistry: Sodium 140, potassium 4.7, chloride 105, CO2 of 27, BUN 30, creatinine 1.8, blood sugar of 296. ASSESSMENT AND PLAN: 1. Status post myocardial infarction, status post cardiac catheterization with LAD angioplasty. The patient cardiac cath report reviewed. The patient has diffuse disease in the LAD and RCA, needs sta ged angioplasty. 2. Noninsulin dependent diabetes. 3. Renal insufficiency, stage III, CKD. PLAN: Her Wu catheter has been discontinued. We will give her 75 mL of IV fluid for 3-4 hours si nce her creatinine has bumped up. I got called out in the afternoon after I made around to the patie nt, she was nauseous. She was given Zofran and the patient nurse states that after that she had a bi g bowel movement. Since then, her abdominal pain has improved and she is not nauseous. She is anxio us to go home, so she is being discharged home today. She will resume her medication. I reached out to her on [place] and ordered for Plavix 75 daily. She will maintain on metoprolol 100 m g daily, aspirin 81 daily. She is on Lipitor 80 mg daily, simvastatin 80 mg daily, Isosorbide 60 mg daily. She is on Lotrel and she is on insulin. She will continue all that. She will follow with he r PMD. Mack Desai MD cc: [phone] TT: 01/28/2017 20:25:40 mn
== END 2017-01-28 17:58 | disposition home or self-care (01) | DRG 247 ==
LOC: ED 04:47 → ERH 07:02 → 2RSO 09:07
PROVIDERS: ADMIT Internal Medicine Nephrology; ATTEND Internal Medicine Nephrology
PROC: 027044Z Dilation of Coronary Artery, One Artery with Drug-eluting Intraluminal Device, Percutaneous Endoscopic Approach (ICD-10-PCS; principal; 2017-01-27)
PROC: 4A023N7 Measurement of Cardiac Sampling and Pressure, Left Heart, Percutaneous Approach (ICD-10-PCS; 2017-01-27)
PROC: B2051ZZ Plain Radiography of Left Heart using Low Osmolar Contrast (ICD-10-PCS; 2017-01-27)
PROC: B2011ZZ Plain Radiography of Multiple Coronary Arteries using Low Osmolar Contrast (ICD-10-PCS; 2017-01-27)
PROC: 5A1223Z Performance of Cardiac Pacing, Continuous (ICD-10-PCS; 2017-01-27)
PROC: 0T9B70Z Drainage of Bladder with Drainage Device, Via Natural or Artificial Opening (ICD-10-PCS; 2017-01-28)
DX: I21.4 Non-ST elevation (NSTEMI) myocardial infarction (principal); I25.10 Atherosclerotic heart disease of native coronary artery without angina pectoris; E11.22 Type 2 diabetes mellitus with diabetic chronic kidney disease; N18.3 Chronic kidney disease, stage 3 (moderate); I12.9 Hypertensive chronic kidney disease with stage 1 through stage 4 chronic kidney disease, or unspecified chronic kidney disease; I45.10 Unspecified right bundle-branch block; I44.0 Atrioventricular block, first degree; R33.9 Retention of urine, unspecified; M19.90 Unspecified osteoarthritis, unspecified site; E78.5 Hyperlipidemia, unspecified; Z79.4 Long term (current) use of insulin

== ENCOUNTER 2017-02-26 10:15 | Inpatient (IN) | payer MEDICARE, BC ==
[2017-02-26 10:23] VITALS: BMI 28.7
[2017-02-26] MEDS ORDERED: Morphine 4 mg/ml ISec IVP STA (10:53)
[2017-02-26] MEDS ORDERED: Sodium Chloride 0.9% 1,000 ML IV STA (10:54)
[2017-02-26 10:58] LABS: ADD MANUAL DIFF? NO
--- NOTE | 2017-02-26 11:02 | ED PDOC ---
Arrival/HPI - General Chief Complaint: Chest Pain Time Seen by Provider: 02/26/17 10:18 Historian: Patient, Family - History of Present Illness Narrative History of Present Illness (Text): 02/26/17 10:59 76 year old female, pmh including hypertension/hyperlipidemia/diabetes/cad, complaining of chest pain started about 2 hours ago which she took 3 tablets of aspirin 81mg po. Pt. stated that she woke up this morning with the rt. lower back pain which causing her to have lt. sided chest pain for couple of seconds, relief with the 3 tablets of aspirin, cardiac cath done on 01/27/2017 show there is severe mid left anterior descending stenosis with severe right coronary artery and circumflex system disease, no dizziness, no palpitation, no urinary symptoms, no other medical or psychological complaints. Past Medical History - Provider Review Nursing Documentation Reviewed: Yes - Infectious Disease Hx of Infectious Diseases: None - Tetanus Immunization Tetanus Immunization: >10 years Ago - Cardiac Hx Cardiac Disorders: Yes Hx Hypertension: Yes - Pulmonary Hx Respiratory Disorders: No - Neurological Hx Neurological Disorder: Yes Hx Dizziness: Yes Other/Comment: vertigo t-1 - HEENT Hx HEENT Disorder: No - Renal Hx Renal Disorder: No - Endocrine/Metabolic Hx Endocrine Disorders: Yes Hx Diabetes Mellitus Type 2: Yes - Hematological/Oncological Hx Blood Disorders: No - Integumentary Hx Dermatological Disorder: No - Musculoskeletal/Rheumatological Hx Falls: Yes - Gastrointestinal Hx Gastrointestinal Disorders: No - Genitourinary/Gynecological Hx Genitourinary Disorders: Yes - Psychiatric Hx Psychophysiologic Disorder: No Hx Substance Use: No - Past Surgical History Past Surgical History: No Previous - Surgical History Hx Hysterectomy: Yes - Anesthesia Hx Anesthesia: Yes - Suicidal Assessment Feels Threatened In Home Enviroment: No Family/Social History - Physician Review Nursing Documentation Reviewed: Yes Family/Social History: Unknown Family HX Smoking Status: Never Smoked Hx Alcohol Use: No Hx Substance Use: No Hx Substance Use Treatment: No Allergies/Home Meds Allergies/Adverse Reactions: Allergies No Known Allergies Allergy (Verified 02/26/17 10:21) Home Medications: Home Meds Medication Instructions Recorded Confirmed Insulin Human NPH/Reg [HumuLIN 15 units SUBCUT HS 12/07/14 02/26/17 70/30 (NPH/Reg)] Insulin Human NPH/Reg [HumuLIN 20 units SUBCUT DAILY 12/07/14 01/24/17 70/30 (NPH/Reg)] Amlodipine Besylate/Benazepril 20 mg PO DAILY 01/24/17 02/26/17 [Amlodipine-Benazepril 2.5-10] Isosorbide Mononitrate [Imdur] 60 mg PO DAILY 01/24/17 02/26/17 Metoprolol Succinate [Metoprolol 100 mg PO DAILY 01/24/17 02/26/17 Succinate Xl] Simvastatin [Zocor] 80 mg PO DAILY 01/24/17 02/26/17 hydroCHLOROthiazide [Hydrodiuril] 25 mg PO DAILY 01/24/17 02/26/17 Aspirin [Ecotrin] 81 mg PO DAILY 01/28/17 02/26/17 Review of Systems - Review of Systems Constitutional: absent: Fatigue, Fevers Eyes: absent: Vision Changes ENT: absent: Hearing Changes Respiratory: absent: Cough Cardiovascular: Chest Pain Gastrointestinal: absent: Abdominal Pain, Nausea, Vomiting Musculoskeletal: Back Pain. absent: Arthralgias, Neck Pain, Joint Swelling, Myalgias Psychiatric: absent: Anxiety, Depression, Suicidal Ideation Physical Exam Vital Signs Reviewed: Yes Vital Signs Temp Pulse Pulse Resp BP BP Pulse Ox 02/26/17 10:53 77 18 156/85 H 96 02/26/17 10:24 85 178/79 H 02/26/17 10:22 98.8 F 87 16 178/79 H 97 Temperature: Afebrile Blood Pressure: Hypertensive Pulse: Regular Respiratory Rate: Normal Appearance: Positive for: Well-Appearing, Non-Toxic, Comfortable Pain Distress: Moderate Mental Status: Positive for: Alert and Oriented X 3 - Systems Exam Head: Present: Atraumatic, Normocephalic Pupils: Present: PERRL Extroacular Muscles: Present: EOMI Conjunctiva: Present: Normal Mouth: Present: Moist Mucous Membranes Neck: Present: Normal Range of Motion Respiratory/Chest: Present: Clear to Auscultation, Good Air Exchange. No: Respiratory Distress, Accessory Muscle Use Cardiovascular: Present: Regular Rate and Rhythm, Normal S1, S2. No: Murmurs Abdomen: Present: Normal Bowel Sounds. No: Tenderness, Distention, Peritoneal Signs Back: Present: Normal Inspection, Other (Thoracic to LS spine: no midline tenderness or step off noted, FROM without limitation, sensation intact, motor 5 /5.). No: CVA Tenderness, Midline Tenderness, Paraspinal Tenderness, Pain with Leg Raise Upper Extremity: Present: Normal Inspection. No: Cyanosis, Edema Lower Extremity: Present: Normal Inspection. No: Edema Neurological: Present: GCS=15, Speech Normal, Motor Func Grossly Intact, Gait Normal, Memory Normal Skin: Present: Warm, Dry, Normal Color. No: Rashes Lymphatic: No: Cervical Adenopathy Psychiatric: Present: Alert, Oriented x 3, Normal Insight, Normal Concentration Medical Decision Making ED Course and Treatment: 02/26/17 10:58 -labs/ua/cardiac enzyme -chest xray -aspirin 81 mg (pt. took 3 tablets prior to arrival)/morphine/oxygen -laboratory monitor -will admit 02/26/17 11:36 -EKG show: NSR @ 79 BPM, no acute ST or T wave changes compared with previous ekg. -Chest xray show: no active disease -LS spine xray show: no fracture or subluxation -Labs are non-significant except BUN 36, BNP 467. IVF 100cc/hr ordered. -Pt. will need admission for 24 hours cardio enzyme series and further evaluation. 02/26/17 11:38 -I discussed the case with Dr. Reno which is covering for DR. Alamo ( covering DR. Zaidi), discussed about the labs/radiology results, agreed on the admission to telemetry. Routine consult with dr. enciso. -I discussed the case with DR. Major and he agreed on the admission, he will put in the admission order. - Lab Interpretations Lab Results: 02/26/17 10:25 02/26/17 10:25 Lab Results 02/26/17 12:00: Urine Color Straw, Urine Appearance Clear, Urine pH 6.0, Ur Specific [employer] 1.020, Urine Protein 100 H, Urine Glucose (UA) Negative, Urine Ketones Negative, Urine Blood Trace-lysed H, Urine Nitrate Negative, Urine Bilirubin Negative, Urine Urobilinogen 0.2, Ur Leukocyte Esterase Trace H, Urine RBC 0 - 2, Urine WBC 1 - 3, Ur Epithelial Cells 1 - 3, Urine Bacteria Few 02/26/17 10:25: Sodium 144, Potassium 4.0, Chloride 110 H, Carbon Dioxide 22, Anion Gap 16, BUN 36 H, Creatinine 1.3, Est GFR ( Amer) 48, Est GFR (Non- Af Amer) 40, Random Glucose 84, Calcium 9.3, Total Bilirubin 0.6, AST 25, ALT 25 , Alkaline Phosphatase 87, Lactate Dehydrogenase 567, Total Creatine Kinase 129 , Troponin I < 0.01 D, NT-Pro-B Natriuret Pep 467 H, Total Protein 8.1, Albumin 4.1, Globulin 3.9, Albumin/Globulin Ratio 1.1 02/26/17 10:25: WBC 6.7, RBC 4.02, Hgb 11.2 L, Hct 33.4 L, MCV 83.1, MCH 27.9, MCHC 33.5, RDW 14.5, Plt Count 320, MPV 11.0, Gran % 54.6, Lymph % (Auto) 35.7 H , [place] % (Auto) 8.2 H, Eos % (Auto) 1.2 L, Baso % (Auto) 0.3, Gran # 3.64, Lymph # 2.4, [place] # 0.6, Eos # 0.1, Baso # 0.02 I have reviewed the lab results: Yes Interpretation: Abnormal lab values (BUN 36, BNP 467) - RAD Interpretation Radiology Orders: 02/26/17 11:02 LS SPINE WITH OBL > 18 YRS OLD [RAD] Stat Radiographs of the Lumbar Spine. HISTORY: Lower back pain x 1 day COMPARISON: CT abdomen pelvis from 06/03/2015 FINDINGS: BONES: No obvious compressive deformity. DISC SPACES: Intervertebral disc space narrowing at L5-S1. OTHER FINDINGS: Mild anterolisthesis of L4 over L5. Extensive facet hypertrophy in the lumbar spine. Vascular calcifications. Visualized portions of the pelvis demonstrates moderate stool burden suggestive of constipation. Degenerative changes of both hips partially visualized. Sacro iliac joint arthritis. IMPRESSION: No obvious compressive deformity. Other findings as above. Chest x-ray: PROCEDURE: CHEST RADIOGRAPH, 1 VIEW HISTORY: chest pain COMPARISON: None available. FINDINGS: LUNGS: No focal airspace opacity. PLEURA: No pneumothorax or pleural fluid seen. CARDIOVASCULAR: Normal. OSSEOUS STRUCTURES: The osseous structures demonstrate degenerative changes. VISUALIZED UPPER ABDOMEN: Upper abdomen is suboptimally evaluated. OTHER FINDINGS: None. IMPRESSION: No focal airspace opacity. Bioinformatics Programmer: Radiologist - EKG Interpretation EKG Interpretation (Text): 02/26/17 12:54 NSR @ 79 BPM, no acute ST or T wave changes. Interpreted by ED Physician: Yes Type: 12 lead EKG Comparison: Com.w/previous EKG - Medication Orders Current Medication Orders: Sodium Chloride (Sodium Chloride 0.9%) 1,000 mls @ 100 mls/hr IV .Q10H STA Stop: 02/26/17 20:53 Last Admin: 02/26/17 11:29 Dose: 100 mls/hr Discontinued Medications Aspirin (Aspirin Chewable) 81 mg PO STAT STA Stop: 02/26/17 10:54 Last Admin: 02/26/17 11:28 Dose: 81 mg Morphine Sulfate (Morphine) 4 mg IVP STAT STA Stop: 02/26/17 10:54 Last Admin: 02/26/17 11:29 Dose: 4 mg - PA / PLUNGER SCOOP OPERATOR / Resident Statement MD/DO has reviewed & agrees with the documentation as recorded. Disposition/Present on Arrival - Present on Arrival Any Indicators Present on Arrival: No History of DVT/PE: No History of Uncontrolled Diabetes: No Urinary Catheter: No History of Decub. Ulcer: No History Surgical Site Infection Following: None - Disposition Have Diagnosis and Disposition been Completed?: Yes Diagnosis: Chest pain, Dehydration Disposition: HOSPITALIZED Disposition Time: 11:37 Patient Plan: Admission, Telemetry Patient Problems: Current Active Problems Problem Status Onset Chest pain Acute Dehydration Acute Condition: STABLE
[2017-02-26 11:11] LABS: BASO # 0.02 K/mm3 (0.0-2.0); BASO % 0.3 % (0.0-3.0); EOS # 0.1 (0.0-0.7); EOS % 1.2 % (1.5-5.0); GRAN # 3.64 (1.4-6.5); GRAN % 54.6 % (50.0-68.0); HEMATOCRIT 33.4 % (36.0-48.0); LYMPH # 2.4 (1.2-3.4); LYMPH % 35.7 % (22.0-35.0); MEAN CELL VOLUME 83.1 fL (80.0-105.0); MEAN CORPUSCULAR HEMOGLOBIN 27.9 pg (25.0-35.0); MEAN CORPUSCULAR HGB CONC 33.5 g/dl (31.0-37.0); MONO # 0.6 (0.1-0.6); MONO % 8.2 % (1.0-6.0); PLATELET COUNT 320 10^3/uL (120.0-450.0); RED CELL DISTRIBUTION WIDTH 14.5 % (11.5-14.5); WHITE BLOOD COUNT 6.7 10^3/ul (4.5-11.0)
[2017-02-26 11:12] LABS: ALB/GLOB RATIO 1.1 (1.1-1.8); ALKALINE PHOSPHATASE 87 U/L (38-133); ALT/SGPT 25 U/L (7-56); AST/SGOT 25 U/L (15-39); BILIRUBIN,TOTAL 0.6 mg/dL (0.2-1.3); BLOOD UREA NITROGEN 36 mg/dL (7-21); CALCIUM 9.3 mg/dL (8.4-10.5); CARBON DIOXIDE 22 mmol/L (21-33); CHLORIDE 110 mmol/L (98-107); GFR AFRICAN-AMERICAN 48; GLUCOSE,RANDOM 84 mg/dL (70-110); SODIUM 144 mmol/L (132-148); TOTAL PROTEIN 8.1 g/dL (5.8-8.3)
[2017-02-26 11:26] LABS: TROPONIN I < 0.01 ng/mL
[2017-02-26 12:16] LABS: URINE BILIRUBIN NEGATIVE (NEGATIVE); URINE BLOOD TRACE-LYSED (NEGATIVE); URINE GLUCOSE (UA) NEGATIVE (NEGATIVE); URINE KETONE NEGATIVE (NEGATIVE); URINE LEUKOCYTE ESTERASE TRACE Leu/uL (NEGATIVE); URINE PROTEIN 100 mg/dL (<30 mg/dL); URINE UROBILINOGEN 0.2 E.U./dL (<1 E.U./dL)
[2017-02-26 12:17] LABS: URINE APPEARANCE CLEAR (CLEAR); URINE COLOR STRAW (YELLOW)
[2017-02-26 12:27] LABS: URINE BACTERIA FEW (NEG); URINE RBC 0 - 2 /hpf (0-2)
--- NOTE | 2017-02-26 12:46 | RAD ---
PROCEDURE: Radiographs of the Lumbar Spine. HISTORY: Lower back pain x 1 day COMPARISON: CT abdomen pelvis from 06/03/2015 FINDINGS: BONES: No obvious compressive deformity. DISC SPACES: Intervertebral disc space narrowing at L5-S1. OTHER FINDINGS: Mild anterolisthesis of L4 over L5. Extensive facet hypertrophy in the lumbar spine. Vascular calcifications. Visualized portions of the pelvis demonstrates moderate stool burden suggestive of constipation. Degenerative changes of both hips partially visualized. Sacro iliac joint arthritis. IMPRESSION: No obvious compressive deformity. Other findings as above. If symptoms persist, MRI of the lumbar spine recommended. Please note that MRI would be optimal to evaluate for bone marrow edema from acute injury.
--- NOTE | 2017-02-26 12:56 | RAD ---
PROCEDURE: CHEST RADIOGRAPH, 1 VIEW HISTORY: chest pain COMPARISON: None available. FINDINGS: LUNGS: No focal airspace opacity. PLEURA: No pneumothorax or pleural fluid seen. CARDIOVASCULAR: Normal. OSSEOUS STRUCTURES: The osseous structures demonstrate degenerative changes. VISUALIZED UPPER ABDOMEN: Upper abdomen is suboptimally evaluated. OTHER FINDINGS: None. IMPRESSION: No focal airspace opacity.
[2017-02-26] MEDS ORDERED: Morphine 2 mg/ml ISec IVP PRN (15:30)
[2017-02-26] MEDS: Metoprolol Succinate 100 mg XL Tab PO SCH (18:01)
[2017-02-26] MEDS: Insulin Human NPH/Reg 70/30 Vial(3 ml) SC SCH (18:27)
[2017-02-26] MEDS: Insulin Reg-LOW-Coverage SC SCH (22:22)
--- NOTE | 2017-02-26 22:55 | CP.PCM.HP ---
History of Present Illness - History of Present Illness History of Present Illness: Patient is a 76 year old female with history of CAD. Complaining of retrosternal pain. No radiation. No nausea, vomiting. She has hypertension, BP elevated in ED. DM II controlled on current meds. She has anemia. Present on Admission - Present on Admission Any Indicators Present on Admission: No Review of Systems - Constitutional Constitutional: Malaise, Weakness - EENT Eyes: absent: As Per HPI, Blind Spots, Blurred Vision, Change in Vision, Decreased Night Vision, Diplopia, Discharge, Dry Eye, Exophthalmos, Floaters, Irritation, Itchy Eyes, Loss of Peripheral Vision, Pain, Photophobia, Requires Corrective Lenses, Sees Flashes, Spots in Vision, Tunnel Vision, Other Visual Disturbances, Loss of Vision, Other Ears: absent: As Per HPI, Decreased Hearing, Ear Discharge, Ear Pain, Tinnitus, Abnormal Hearing, Disequilibrium, Dizziness, Other Nose/Mouth/Throat: absent: As Per HPI, Epistaxis, Nasal Congestion, Nasal Discharge, Nasal Obstruction, Nasal Trauma, Nose Pain, Post Nasal Drip, Sinus Pain, Sinus Pressure, Bleeding Gums, Change in Voice, Dental Pain, Dry Mouth, Dysphagia, Halitosis, Hoarsness, Lip Swelling, Mouth Lesions, Mouth Pain, Odynophagia, Sore Throat, Throat Swelling, Tongue Swelling, Facial Pain, Neck Pain, Neck Mass, Other - Cardiovascular Cardiovascular: Chest Pain - Respiratory Respiratory: absent: As Per HPI, Cough, Dyspnea, Hemoptysis, Dyspnea on Exertion , Wheezing, Snoring, Stridor, Pain on Inspiration, Chest Congestion, Excessive Mucous Production, Change in Mucous Color, Pain with Coughing, Other - Gastrointestinal Gastrointestinal: absent: As Per HPI, Abdominal Pain, Belching, Bloating, Change in Bowel Habits, Change in Stool Character, Coffee Ground Emesis, Constipation, Cramping, Diarrhea, Dyspepsia, Dysphagia, Early Satiety, Excessive Flatus, Fecal Incontinence, Heartburn, Hematemesis, Hematochezia, Loose Stools, Melena, Nausea, Odynophagia, Temesmus, Vomiting, Other - Genitourinary Genitourinary: absent: As Per HPI, Change in Urinary Stream, Difficulty Urinating, Dysuria, Flank Pain, Hematuria, Pyuria, Nocturia, Urinary Incontinence, Urinary Frequency, Urinary Hesitance, Urinary Urgency, Voiding Freq/Small Amts, Freq UTI, Hx Renal/Bladder Calculi, Hx /Renal Surgery, Bladder Distension, Other - Musculoskeletal Musculoskeletal: absent: As Per HPI, Abnormal Gait, Arthralgias, Atrophy, Back Pain, Deformity, Joint Swelling, Limited Range of Motion, Loss of Height, Muscle Cramps, Muscle Weakness, Myalgias, Neck Pain, Numbness, Radiating Pain into Limb, Stiffness, Tingling, Other - Integumentary Integumentary: absent: As Per HPI, Acne, Alopecia, Bleeding Lesions, Change in Hair, Change in Nails, Change in Pigmentation, Changing Lesions, Dry Skin, Erythema, Furuncle, Hirsutism, Lesions, New Lesions, Non-Healing Lesions, Photosensitivity, Pruritus, Rash, Skin Pain, Skin Ulcer, Sores, Striae, Swelling , Unusual Bruising, Wounds, Jaundice, Other - Neurological Neurological: absent: As Per HPI, Abnormal Gait, Abnormal Hearing, Abnormal Movements, Abnormal Speech, Behavioral Changes, Burning Sensations, Confusion, Convulsions, Disequilibrium, Dizziness, Numbness, Focal Weakness, Frequent Falls , Headaches, Lack of Coordination, Loss of Vision, Memory Loss, Paresthesias, Radicular Pain, Restless Legs, Sensory Deficit, Syncope, Tingling, Tremor, Vertigo, Weakness, Other Visual Disturbances, Other - Psychiatric Psychiatric: absent: As Per HPI, Abnormal Sleep Pattern, Anhedonia, Anxiety, Auditory Hallucinations, Behavioral Changes, Change in Appetite, Change in Libido, Confusion, Depression, Difficulty Concentrating, Hallucinations, Homicidal Ideation, Hopelessness, Irritability, Memory Loss, Mood Swings, Panic Attacks, Paranoia, Suicidal Ideation, Visual Hallucinations, Tactile Hallucinations, Other - Endocrine Endocrine: absent: As Per HPI, Change in Body Appearance, Change in Libido, Cold Intolorance, Deepening of Voice, Excessive Sweating, Fatigue, Flushing, Heat Intolorance, Increase in Ring/Shoe/Hat Size, Palpitations, Polydipsia, Polyphagia, Polyuria, Other - Hematologic/Lymphatic Hematologic: As Per HPI Past Patient History - Infectious Disease Hx of Infectious Diseases: None - Tetanus Immunizations Tetanus Immunization: >10 years Ago - Past Medical History & Family History Past Medical History?: Yes Past Family History: Reviewed and not pertinent - Past Social History Smoking Status: Never Smoked - CARDIAC Hx Cardiac Disorders: Yes Hx Hypertension: Yes - PULMONARY Hx Respiratory Disorders: No - NEUROLOGICAL Hx Neurological Disorder: Yes Hx Dizziness: Yes Other/Comment: vertigo t-1 - HEENT Hx HEENT Problems: No - RENAL Hx Chronic Kidney Disease: No - ENDOCRINE/METABOLIC Hx Endocrine Disorders: Yes Hx Diabetes Mellitus Type 2: Yes - HEMATOLOGICAL/ONCOLOGICAL Hx Blood Disorders: No - INTEGUMENTARY Hx Dermatological Problems: No - MUSCULOSKELETAL/RHEUMATOLOGICAL Hx Falls: Yes - GASTROINTESTINAL Hx Gastrointestinal Disorders: No - GENITOURINARY/GYNECOLOGICAL Hx Genitourinary Disorders: Yes - PSYCHIATRIC Hx Psychophysiologic Disorder: No - SURGICAL HISTORY Hx Hysterectomy: Yes - ANESTHESIA Hx Anesthesia: Yes Meds Allergies/Adverse Reactions: Allergies Allergy/AdvReac Type Severity Reaction Status Date / Time No Known Allergies Allergy Verified 02/26/17 10:21 Physical Exam - Constitutional Appears: Well, Non-toxic - Head Exam Head Exam: ATRAUMATIC, NORMAL INSPECTION - Eye Exam Eye Exam: Normal appearance Pupil Exam: NORMAL ACCOMODATION, PERRL - ENT Exam ENT Exam: Mucous Membranes Moist, Normal Exam - Neck Exam Neck exam: Positive for: Normal Inspection - Respiratory Exam Respiratory Exam: Clear to Auscultation Bilateral, NORMAL BREATHING PATTERN - Cardiovascular Exam Cardiovascular Exam: REGULAR RHYTHM, +S1, +S2 - GI/Abdominal Exam GI & Abdominal Exam: Normal Bowel Sounds, Soft - Back Exam Back exam: NORMAL INSPECTION - Neurological Exam Neurological exam: Alert, CN II-XII Intact, Normal Gait, Oriented x3, Reflexes Normal - Psychiatric Exam Psychiatric exam: Normal Affect, Normal Mood - Skin Skin Exam: Dry, Intact, Normal Color, Warm Results - Vital Signs Recent Vital Signs: Last Vital Signs Temp 98.2 F 02/26/17 17:37 Pulse 75 02/26/17 22:00 Resp 18 02/26/17 17:37 BP 180/81 H 02/26/17 18:01 Pulse Ox 99 02/26/17 17:37 - Labs Result Diagrams: 02/26/17 10:25 02/26/17 10:25 Assessment & Plan - Assessment and Plan (Free Text) Assessment: 1. Chest pain 2. CAD 3. Mild anemia 4. Hypertension 5. DMII Plan : 1. chest pain, left sided. cardiac enzymes normal. admit tele. cardio consult dr. Benson requested. serial trops monitoring. aspirin 81 mg daily. Continue plavix. Imdur 60 mg daily. 2. mild anemia- hb/hct stable. 3. hypertension : continue beta blockers. continue lisinopril 10 mg QD, HCZ- 25 mg daily. 4. DMII continue home meds. insulin sliding scale, glucose finger check- QACHS.
[2017-02-27 07:10] LABS: TROPONIN I 0.02 ng/mL
[2017-02-27] MEDS: Insulin Reg-LOW-Coverage SC SCH ×4 (07:41→21:54)
[2017-02-27 07:42] LABS: INR 0.97 (0.93-1.08)
[2017-02-27] MEDS: Insulin Human NPH/Reg 70/30 Vial(3 ml) SC SCH ×2 (07:42→16:44)
--- NOTE | 2017-02-27 08:33 | DS ---
This is a 76-year-old female who had come into the hospital complaining of substernal chest pain. Th e patient had blood work and had cardiac enzymes done initially that were negative. The patient has had a cardiac catheterization done. She is waiting to be seen by Dr. Benson. She has no complaints of any headaches, no dizziness. She has been placed on Imdur and Plavix and aspirin. She is cleared by Dr. Benson and the patient will be discharged today. PHYSICAL EXAMINATION: VITAL SIGNS: Temperature is 98.7, pulse of 83, blood pressure is 173/82, respirations 20, O2 saturat ion is 100%. GENERAL: The patient comfortable, in no acute distress. HEENT: Anicteric sclerae. Moist mucosa. NECK: No JVD or adenopathy. CARDIAC: S1/S2. No murmurs. No rubs. Regular. RESPIRATORY: Clear to auscultation bilaterally. No wheezes, rales, or rhonchi. Good air entry. ABDOMEN: Bowel sounds are positive, soft, nontender, and nondistended. EXTREMITIES: No edema. Has 1+ pulses. ASSESSMENT: 1. Chest pain. 2. Coronary artery disease. 3. Hypertension. 4. Diabetes type 2. PLAN: The patient is currently on aspirin. She is going to continue on insulin. She is on Lipitor for dyslipidemia. She is on morphine for pain. She is on lisinopril for hypertension. She was give n IV fluids. There is a cardiac enzyme that is pending. She is on a heart healthy diet. If she is cleared, we will discharge the patient home to follow up with Dr. Benson. She is also going to follo w up with her primary care doctor, Dr. Zaidi. CONDITION: Stable. ACTIVITY: Increase as tolerated. Jose Berkowitz MD cc: [id number] TT: 02/27/2017 08:32:23 en
[2017-02-27] MEDS: POLYETHYLENE GLYCOL 3350 17 GM/Dose PACKET PO SCH ×2 (09:21→17:28)
--- NOTE | 2017-02-27 09:35 | CON ---
DATE: 02/27/2017 INDICATIONS: Chest pain, known coronary artery disease. This is a 76-year-old woman, known to me with a recent admission for an NSTEMI with cardiac catheterization which disclosed severe coronary artery disease. She underwent an LAD stent at that time and was recommended to undergo staged intervention on the right coronary artery and the circumflex artery. She was admitted yesterday with retrosternal chest pain. It did not respond to aspirin. She came to the Emergency Room and was admitted. Subsequently, she was treated and the chest pain subsided. She is on telemetry this morning without chest pain. There was no shortness of breath, orthopnea, PND, syncope, presyncope, lightheadedness, dizziness, vertigo, palpitations, edema, claudication, fever, chills, cough, sputum production or hemoptysis, abdominal pain, nausea, vomiting, diarrhea, constipation, or melena. PAST MEDICAL HISTORY: Notable for coronary artery disease with remote coronary intervention, a recent LAD stent following an NSTEMI with residual circumflex and right coronary artery disease. 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 There is no history of rheumatic fever, congestive heart failure, arrhythmia, stroke, TIA or gout. MEDICATIONS: At the time of admission include aspirin, hydrochlorothiazide, simvastatin, metoprolol, Imdur, Lotrel, and insulin. ALLERGIES: There are no known medication allergies. SOCIAL HISTORY: She lives at home. She is . She is ambulatory. She does not smoke. She does not drink alcohol. FAMILY HISTORY: Noncontributory. REVIEW OF SYSTEMS: Ten point otherwise unremarkable except as noted above. PHYSICAL EXAMINATION: GENERAL: She is a well-developed, elderly woman, in no acute distress, lying in bed on telemetry. VITAL SIGNS: Notable for sinus rhythm at 63 beats per minute. She is afebrile. Blood pressure elevated at 173/82, respirations 18-20, O2 sat 99%-100 % on room air. HEENT: Reveals no neck vein distention, thyromegaly, carotid bruits. Mucous membranes moist. Conjunctivae pink. NECK: Supple. CHEST: Lung mclaughlin clear. HEART: Revealed normal first and second heart sounds with a soft systolic murmur along the left sternal border. ABDOMEN: Soft, bowel sounds are present. No mass, organomegaly, tenderness, rebound, or guarding. No CVA tenderness. No palpable abdominal aortic aneurysm. EXTREMITIES: Revealed no cyanosis, clubbing, or edema. NEUROLOGIC: She was awake, alert and oriented. SKIN: Warm and dry. No rash or cellulitis. PSYCHIATRIC: Normal as to mood and affect. LABORATORY AND IMAGING: EKG demonstrates regular sinus rhythm, right bundle branch block, ST-T wave changes, no acute changes noted. A chest x-ray reveals a portable study, no focal airspace opacity. A lumbar spine x-ray reveals no obvious compressive deformity. CBC is notable for normal white count, normal platelet count, hemoglobin 11.2, hematocrit 33.4. PT, INR, PTT unremarkable. Electrolytes unremarkable. BUN 36, creatinine 1.3, blood sugar 168. LFTs unremarkable. CK negative x 2. Troponin negative x 2. BNP 467. Urinalysis is noted. IMPRESSION: The patient is a 76-year-old woman with known coronary artery disease, status post non-ST elevation myocardial infarction and recent left anterior descending coronary intervention with drug-eluting stent and residual coronary artery disease in the circumflex artery and right coronary artery. At this time, I agree with current plan. She is on telemetry. There is no evidence of acute myocardial infarction by enzymes. I have discussed with her staged intervention on the right coronary artery and circumflex artery. She is amenable to this at this time. I have discussed the case with Dr. Berkowitz. We will continue her current medications including aspirin, hydrochlorothiazide , Imdur, Lipitor, Plavix, metoprolol, Zestril. We will arrange a coronary intervention for tomorrow morning. We will keep her n.p.o. after midnight. Insulin will be held in the morning. Additional recommendations will be based on her clinical course. I will review her old records. I have discussed the case with Dr. Negro as well. Corbin Benson MD cc: [id number] TT: 02/27/2017 09:34:52 Confirmation # [id number] Dictation # [id number] en MTDD
--- NOTE | 2017-02-27 11:35 | CARD ---
APPROVED REPORT EKG Measurement Heart [id number] <Conclusion> Normal sinus rhythm Possible Left atrial enlargement Right bundle branch block Inferior infarct, age undetermined STTW changes c/w ischemia No change except slower rate c/w ECG 01/27/17
[2017-02-27] MEDS: Metoprolol Succinate 100 mg XL Tab PO SCH (17:28)
[2017-02-28] MEDS ORDERED: Lidocaine 2% Inj (20ml) ONE (06:43)
[2017-02-28] MEDS ORDERED: DiphenhydrAMINE 50 mg/ml Inj ONE (07:23)
[2017-02-28] MEDS ORDERED: Iohexol 350mgl/ml 50 ML ONE (07:23)
[2017-02-28] MEDS ORDERED: Midazolam 2 MG/2 ML VIAL ONE (07:27)
--- NOTE | 2017-02-28 07:36 | PN ---
DATE: 02/28/2017 SUBJECTIVE: The patient has no complaints of any chest pain or shortness of breath, no headaches or dizziness. She is going for a cardiac cath today. PHYSICAL EXAMINATION: VITAL SIGNS: Temperature is 97, pulse of 71, blood pressure 142/81, respirations 20. GENERAL: The patient comfortable, in no acute distress. HEENT: Anicteric sclerae. Moist mucosa. NECK: No JVD or adenopathy. CARDIAC: S1/S2. No murmurs. No rubs. Regular. RESPIRATORY: Clear to auscultation bilaterally. No wheezes, rales, or rhonchi. Good air entry. ABDOMEN: Bowel sounds are positive, soft, nontender, and nondistended. EXTREMITIES: No edema. Has 1+ pulses. ASSESSMENT: 1. Chest pain. 2. Coronary artery disease. 3. Hypertension. 4. Diabetes type 2. PLAN: The patient has been having intermittent chest pain as an outpatient. She is going to need a cardiac cath. That is scheduled for today. She is on Lipitor for dyslipidemia. She is on isosorbid e for her chest pain. She is on morphine as needed. She is on Plavix. She is going to continue wit h metoprolol. She is on lisinopril for her hypertension. We will await further input from the cardi ologist after her procedure. Jose Berkowitz MD cc: [id number] TT: 02/28/2017 07:35:45 Confirmation # [id number] Dictation # [id number] tn
[2017-02-28] MEDS ORDERED: Nitroglycerin 50mg in D5W 50 MG/250 ML BOTTLE IV ONE (08:08)
[2017-02-28] MEDS ORDERED: Iohexol 350 MG/100 ML VIAL ONE (08:14)
[2017-02-28] MEDS ORDERED: Sodium Chloride 0.9% 1,000 ML IV SCH (08:30)
--- NOTE | 2017-02-28 09:07 | CARDCATH ---
PROCEDURE DATE: 02/28/2017 HISTORY: This is a 76-year-old woman with known coronary artery disease, status post recent PCI of her LAD, and known RCA and circumflex disease who was admitted with unstable angina, intervention on her RCA and circumflex had been advised. INDICATION: Acute coronary syndrome with known coronary artery disease. FINDINGS: HEMODYNAMICS: The aortic pressure was 180/90. Left ventricular pressure was not measured. CORONARY ANATOMY: 1. The left main stem was normal. 2. The previously placed stents in the LAD were widely patent. 3. Left circumflex artery had an 80% lesion prior to the takeoff of the first large obtuse marginal branch. 4. The right coronary artery had a 70% lesion in its early mid portion, and an 80% lesion in the late mid segment of the vessel. A distal posterolateral branch was occluded. CORONARY INTERVENTION: 4000 units of intravenous heparin were administered, and the ACT was graded at 300 seconds throughout the procedure. A JR4 guide catheter was utilized to cannulate the RCA, and the lesions in the RCA successfully crossed with a Roberts wire. Following this, initial placements were performed in the more distal lesion with a 2.5 mm x 12 mm balloon. Following this, a 2.75 mm x 18 mm Resolute drug-eluting stent was advanced and inflated to 12 atmospheres. There was 0% residual stenosis following the intervention. Following this, a 2.75 mm x 14 mm Resolute stent was placed in the more proximal segment of the mid vessel. This was inflated to 10 atmospheres with 0% residual stenosis following intervention. Intracoronary nitroglycerin was infused. CIARA grade III flow was present before and after the interventional. Following this, a 3.5 EBU guide catheter was utilized to cannulate the left coronary system. The lesion in the circumflex was successfully crossed with the same Roberts wire, and initial inflation was performed with a 2.5 mm x 10 mm balloon. Following this, a 2.5 mm x 12 mm Resolute drug-eluting stent was advanced and inflated to 10 atmospheres. There was 0% residual stenosis following the intervention. Intracoronary nitroglycerin was infused. There was mild proximal circumflex disease, which was unchanged and mild diffuse disease within the first and second obtuse marginal branches, which were basically unchanged as well. CIARA grade III flow was present before and after the intervention. LEFT FEMORAL ARTERIOGRAPHY: Left femoral arteriography revealed appropriate level of arterial puncture. There was evidence of moderate calcification and some significant plaque beyond the catheter insertion site. Given all of this, the insertion site was then closed with the use of a Mynx device. CONCLUSION: 1. Patent LAD stents. 2. Successful PCI of RCA and circumflex artery with Resolute drug-eluting stents. RECOMMENDATIONS: Aspirin and Plavix therapy should be continued for 1 year. Continued risk factor control was advised. Guido Negro MD cc: [id number] TT: 02/28/2017 09:07:12 jn MTDD
[2017-02-28] MEDS: POLYETHYLENE GLYCOL 3350 17 GM/Dose PACKET PO SCH (09:19)
[2017-02-28] MEDS ORDERED: Sodium Chloride 0.9% 500 ML IV STA (09:58)
[2017-02-28 11:54] LABS: ADD MANUAL DIFF? NO
[2017-02-28 12:04] LABS: BASO # 0.02 K/mm3 (0.0-2.0); BASO % 0.3 % (0.0-3.0); EOS # 0.1 (0.0-0.7); EOS % 1.2 % (1.5-5.0); GRAN # 4.49 (1.4-6.5); GRAN % 69.8 % (50.0-68.0); HEMATOCRIT 30.5 % (36.0-48.0); LYMPH # 1.4 (1.2-3.4); LYMPH % 21.6 % (22.0-35.0); MEAN CELL VOLUME 84.5 fL (80.0-105.0); MEAN CORPUSCULAR HEMOGLOBIN 27.7 pg (25.0-35.0); MEAN CORPUSCULAR HGB CONC 32.8 g/dl (31.0-37.0); MEAN PLATELET VOLUME 10.6 fl (7.0-11.0); MONO # 0.5 (0.1-0.6); MONO % 7.1 % (1.0-6.0); PLATELET COUNT 282 10^3/uL (120.0-450.0); RED CELL DISTRIBUTION WIDTH 14.6 % (11.5-14.5); WHITE BLOOD COUNT 6.4 10^3/ul (4.5-11.0)
[2017-02-28 12:05] LABS: ALB/GLOB RATIO 1.1 (1.1-1.8); BILIRUBIN,TOTAL 0.8 mg/dL (0.2-1.3); CALCIUM 8.3 mg/dL (8.4-10.5); MAGNESIUM 2.1 mg/dL (1.7-2.2); POTASSIUM 4.7 mmol/L (3.6-5.0); TOTAL PROTEIN 6.7 g/dL (5.8-8.3)
[2017-02-28 16:41] VITALS: RESP 18
[2017-02-28 16:43] VITALS: BP 139/59; PULSE 91
[2017-02-28 16:45] VITALS: TEMP 98.2
[2017-02-28 16:48] VITALS: O2SAT 100
[2017-02-28] MEDS: Metoprolol Succinate 100 mg XL Tab PO SCH (18:00)
--- NOTE | 2017-02-28 22:40 | CARD ---
APPROVED REPORT EKG Measurement Heart [id number] ND 144P26 [id number] <Conclusion> Normal sinus rhythm Possible Left atrial enlargement Right bundle branch block Cannot rule out Inferior infarct, age undetermined Abnormal ECG
--- NOTE | 2017-02-28 22:41 | CARD ---
APPROVED REPORT EKG Measurement Heart [id number] DC 128P49 [id number] <Conclusion> Normal sinus rhythm Possible Left atrial enlargement Right bundle branch block T wave abnormality, consider infero-lateral ischemia Abnormal ECG
--- NOTE | 2017-03-10 15:12 | DS ---
Please see the discharge summary that was dictated on 02/27/2017. Jose Berkowitz MD cc: [id number] TT: 03/10/2017 15:11:52 mn
== END 2017-02-28 18:40 | disposition home or self-care (01) | DRG 247 ==
LOC: ED 10:15 → ERH 12:13 → 2RNO 15:41 → 2RSO 02-28 09:06
PROVIDERS: ADMIT Internal Medicine Medical Oncology; ATTEND Internal Medicine Nephrology
PROC: 027135Z Dilation of Coronary Artery, Two Arteries with Two Drug-eluting Intraluminal Devices, Percutaneous Approach (ICD-10-PCS; principal; 2017-02-28)
DX: I25.110 Atherosclerotic heart disease of native coronary artery with unstable angina pectoris (principal); E11.9 Type 2 diabetes mellitus without complications; D64.9 Anemia, unspecified; I10 Essential (primary) hypertension; E78.5 Hyperlipidemia, unspecified; I25.2 Old myocardial infarction; I67.9 Cerebrovascular disease, unspecified; Z90.710 Acquired absence of both cervix and uterus; Z79.82 Long term (current) use of aspirin; Z79.02 Long term (current) use of antithrombotics/antiplatelets

== ENCOUNTER 2017-03-03 21:18 | Observation (INO) | payer MEDICARE, BC ==
[2017-03-03 21:34] VITALS: BMI 28.1
--- NOTE | 2017-03-03 22:07 | ED PDOC ---
Arrival/HPI <Zan Dodd DO - Last Filed: 03/03/17 23:37> - General Historian: Patient - History of Present Illness Time/Duration: < week (2 days ) Symptom Onset: Gradual Symptom Course: Worsening Quality: Aching, Pressure Severity Level: 6 Activities at Onset: Rest Context: Home <LonDariana - Last Filed: 03/04/17 03:49> - General Chief Complaint: Back Pain Time Seen by Provider: 03/03/17 21:37 - History of Present Illness Narrative History of Present Illness (Text): 03/03/17 22:04 This is a 76Y F with PMH HTN, DM, L carotid endarterectomy, CAD s/p stents who came for back pain and light headedness for 2 days. The patient recently was at [facility] on 02/28/17 and had 2 stents placed in RCA and circumflex. She was sitting watching tv and started to have mid thoracic back pain. It does not radiate and is tender to the touch. She also started to feel light headed, but denies vision changes, numbness/tingling, chest pain, slurred speech. The patient denies dysuria, hematuria, fever or chills. She takes all her medications and does report some nausea, but no vomiting. She also has had some diarrhea, but reports it is from the Miralax she had when she wad previously admitted and denies blood or dark colored stool, but reports a hemorrhoid has come out. She denies sudden bowel or bladder incontinence or trauma. (Dariana Forrest) Past Medical History - Provider Review Nursing Documentation Reviewed: Yes - Infectious Disease Hx of Infectious Diseases: None - Tetanus Immunization Tetanus Immunization: >10 years Ago - Cardiac Hx Cardiac Disorders: Yes Hx Hypertension: Yes - Pulmonary Hx Respiratory Disorders: No - Neurological Hx Neurological Disorder: Yes Hx Dizziness: Yes Other/Comment: vertigo t-1 - HEENT Hx HEENT Disorder: No - Renal Hx Renal Disorder: No - Endocrine/Metabolic Hx Endocrine Disorders: Yes Hx Diabetes Mellitus Type 2: Yes - Hematological/Oncological Hx Blood Disorders: No - Integumentary Hx Dermatological Disorder: No - Musculoskeletal/Rheumatological Hx Falls: Yes - Gastrointestinal Hx Gastrointestinal Disorders: No - Genitourinary/Gynecological Hx Genitourinary Disorders: Yes - Psychiatric Hx Psychophysiologic Disorder: No Hx Substance Use: No - Past Surgical History Past Surgical History: No Previous - Surgical History Hx Hysterectomy: Yes - Anesthesia Hx Anesthesia: Yes - Suicidal Assessment Feels Threatened In Home Enviroment: No <Juan JosecotyDariana - Last Filed: 03/04/17 03:49> Family/Social History - Physician Review Nursing Documentation Reviewed: Yes Family/Social History: Diabetes, Hypertension Smoking Status: Never Smoked Hx Alcohol Use: No Hx Substance Use: No Hx Substance Use Treatment: No <Dariana Forrest - Last Filed: 03/04/17 03:49> Allergies/Home Meds <Yousif Zan - Last Filed: 03/03/17 23:37> <Dariana Forrest - Last Filed: 03/04/17 03:49> Allergies/Adverse Reactions: Allergies No Known Allergies Allergy (Verified 02/26/17 10:21) Home Medications: Home Meds Medication Instructions Recorded Confirmed Insulin Human NPH/Reg [HumuLIN 15 units SUBCUT HS 12/07/14 03/04/17 70/30 (NPH/Reg)] Insulin Human NPH/Reg [HumuLIN 20 units SUBCUT DAILY 12/07/14 03/04/17 70/30 (NPH/Reg)] Isosorbide Mononitrate [Imdur] 60 mg PO DAILY 01/24/17 03/04/17 Metoprolol Succinate [Metoprolol 100 mg PO DAILY 01/24/17 03/04/17 Succinate Xl] hydroCHLOROthiazide [Hydrodiuril] 25 mg PO DAILY 01/24/17 03/04/17 Aspirin [Ecotrin] 81 mg PO DAILY 01/28/17 03/04/17 Lotrel 5-20 mg Capsule 1 tab PO DAILY 03/04/17 03/04/17 Review of Systems - Physician Review All systems were reviewed & negative as marked: Yes - Review of Systems Constitutional: Normal. absent: Fevers Eyes: Normal. absent: Vision Changes ENT: Normal Respiratory: Normal. absent: SOB, Cough, Sputum Cardiovascular: Normal. absent: Chest Pain, Palpitations, Edema Gastrointestinal: Diarrhea, Nausea. absent: Abdominal Pain, Stool Changes, Constipation, Vomiting, Appetite Changes, Hematochezia Genitourinary Female: Normal. absent: Dysuria, Frequency, Hematuria Musculoskeletal: Back Pain. absent: Joint Swelling Skin: Normal. absent: Rash, Pruritis, Skin Lesions Neurological: Dizziness. absent: Headache, Focal Weakness, Speech Changes, Facial Droop, Seizure Endocrine: Normal Hemo/Lymphatic: Normal Psychiatric: Normal <Dariana Forrest - Last Filed: 03/04/17 03:49> Physical Exam <Zan Dodd DO - Last Filed: 03/03/17 23:37> Vital Signs Reviewed: Yes Temperature: Afebrile Blood Pressure: Normal Pulse: Regular Respiratory Rate: Normal Appearance: Positive for: Well-Appearing, Non-Toxic, Comfortable Pain Distress: None Mental Status: Positive for: Alert and Oriented X 3 - Systems Exam Head: Present: Atraumatic, Normocephalic Pupils: Present: PERRL Extroacular Muscles: Present: EOMI Conjunctiva: Present: Normal Mouth: Present: Moist Mucous Membranes Neck: Present: Normal Range of Motion Respiratory/Chest: Present: Clear to Auscultation, Good Air Exchange. No: Respiratory Distress, Accessory Muscle Use Cardiovascular: Present: Regular Rate and Rhythm, Normal S1, S2. No: Murmurs Abdomen: Present: Normal Bowel Sounds. No: Tenderness, Distention, Peritoneal Signs Back: Present: Paraspinal Tenderness (mid thoracic ). No: CVA Tenderness Upper Extremity: Present: Normal Inspection. No: Cyanosis, Edema Lower Extremity: Present: Normal Inspection. No: Edema Neurological: Present: GCS=15, CN II-XII Intact, Speech Normal Skin: Present: Warm, Dry, Normal Color. No: Rashes Psychiatric: Present: Alert, Oriented x 3, Normal Insight, Normal Concentration <Dariana Forrest - Last Filed: 03/04/17 03:49> Vital Signs Temp Pulse Resp BP Pulse Ox 03/04/17 01:10 76 18 159/79 H 97 03/03/17 23:37 71 20 161/80 H 97 03/03/17 22:38 77 18 180/79 H 99 03/03/17 21:33 98.8 F 83 16 146/89 97 Medical Decision Making - Lab Interpretations I have reviewed the lab results: Yes <Zan Dodd DO - Last Filed: 03/03/17 23:37> Re-evaluation Time: 23:00 Reassessment Condition: Improved - Lab Interpretations I have reviewed the lab results: Yes Interpretation: Abnormal lab values (hyperglycemia) - EKG Interpretation Interpreted by ED Physician: Yes Type: 12 lead EKG Comparison: Similar to previous EKG <Dariana Forrest - Last Filed: 03/04/17 03:49> ED Course and Treatment: 03/03/17 22:11 Impression: This is a 76Y F with PMH HTN, DM, L carotid endarterectomy, CAD s/p stents who came for thoracic back pain and light headedness for 2 days. She denies bowel/ bladder incontinence, trauma, but does complain of nausea. She denies vision changes, numbness/tingling. Of note she was recently d/c from [facility] 2 days ago for cardiac cath s/p stent placement in RCA and circumflex. Differential Diagnosis: - MT versus compression fracture versus pneumonia Plan: -- CBC, CMP, Troponin, EKG -- CXR -- Thoracic spine XR --Reassess Prior Visits: Notes and results from previous visits were reviewed. Progress Note: CXR showed no active disease. Labs showed MARION and indeterminate troponin. Spoke with PMD Dr. Gillespie who agrees with admission for observation in remote telemetry. (Dariana Forrest) - Lab Interpretations Lab Results: 03/03/17 22:00 03/03/17 22:00 Lab Results 03/03/17 22:30: Urine Color Yellow, Urine Appearance Clear, Urine pH 6.5, Ur Specific [place] 1.015, Urine Protein 100 H, Urine Glucose (UA) Negative, Urine Ketones Negative, Urine Blood Negative, Urine Nitrate Negative, Urine Bilirubin Negative, Urine Urobilinogen 0.2, Ur Leukocyte Esterase Negative, Urine RBC Negative, Urine WBC 1 - 3, Ur Epithelial Cells 0 - 2, Urine Bacteria Few 03/03/17 22:00: TSH 3rd Generation 4.41 03/03/17 22:00: Sodium 137, Potassium 4.6, Chloride 103, Carbon Dioxide 26, Anion Gap 13, BUN 48 H, Creatinine 1.6 H, Est GFR ( Amer) 38, Est GFR ( Non-Af Amer) 31, Random Glucose 171 H, Calcium 8.9, Total Bilirubin 0.6, AST 29 , ALT 25, Alkaline Phosphatase 69, Troponin I 0.07 D, Total Protein 6.8, Albumin 3.7, Globulin 3.1, Albumin/Globulin Ratio 1.2 03/03/17 22:00: WBC 6.4, RBC 3.46 L, Hgb 9.8 L, Hct 29.1 L, MCV 84.1, MCH 28.3, MCHC 33.7, RDW 14.7 H, Plt Count 294, MPV 10.8 - RAD Interpretation Radiology Orders: 03/03/17 21:39 CHEST PORTABLE [RAD] Stat 03/03/17 22:23 THORACIC SPINE [DORSAL (THORACIC) SPINE] [RAD] Stat - EKG Interpretation EKG Interpretation (Text): 03/03/17 22:12 HR 84. QTc prolonged. RBBB. L atrial enlargement. No change from previous EKG. (Dariana Forrest) Disposition/Present on Arrival <Zan Dodd DO - Last Filed: 03/03/17 23:37> - Present on Arrival Any Indicators Present on Arrival: No History of DVT/PE: No History of Uncontrolled Diabetes: No Urinary Catheter: No History of Decub. Ulcer: No History Surgical Site Infection Following: None - Disposition Have Diagnosis and Disposition been Completed?: Yes Disposition Time: 23:15 Patient Plan: Admission <Dariana Forrest - Last Filed: 03/04/17 03:49> - Disposition Diagnosis: Chest pain, Dehydration Disposition: HOSPITALIZED Patient Problems: Current Active Problems Problem Status Onset Chest pain Acute Dehydration Acute Condition: FAIR
[2017-03-03 22:13] LABS: HEMATOCRIT 29.1 % (36.0-48.0); MEAN CELL VOLUME 84.1 fL (80.0-105.0); MEAN CORPUSCULAR HEMOGLOBIN 28.3 pg (25.0-35.0); MEAN CORPUSCULAR HGB CONC 33.7 g/dl (31.0-37.0); MEAN PLATELET VOLUME 10.8 fl (7.0-11.0); RED CELL DISTRIBUTION WIDTH 14.7 % (11.5-14.5); WHITE BLOOD COUNT 6.4 10^3/ul (4.5-11.0)
[2017-03-03 22:23] LABS: ALB/GLOB RATIO 1.2 (1.1-1.8); BILIRUBIN,TOTAL 0.6 mg/dL (0.2-1.3); CALCIUM 8.9 mg/dL (8.4-10.5); POTASSIUM 4.6 mmol/L (3.6-5.0); TOTAL PROTEIN 6.8 g/dL (5.8-8.3)
[2017-03-03 22:34] LABS: TROPONIN I 0.07 ng/mL
[2017-03-03 22:53] LABS: PH,URINE 6.5 (4.7-8.0); URINE BILIRUBIN NEGATIVE (NEGATIVE); URINE BLOOD NEGATIVE (NEGATIVE); URINE GLUCOSE (UA) NEGATIVE (NEGATIVE); URINE KETONE NEGATIVE (NEGATIVE); URINE LEUKOCYTE ESTERASE NEGATIVE Leu/uL (NEGATIVE); URINE PROTEIN 100 mg/dL (<30 mg/dL); URINE UROBILINOGEN 0.2 E.U./dL (<1 E.U./dL)
[2017-03-03 22:58] LABS: URINE APPEARANCE CLEAR (CLEAR); URINE COLOR YELLOW (YELLOW)
[2017-03-03 23:00] LABS: URINE BACTERIA FEW (NEG); URINE EPITHELIAL CELLS 0 - 2 /hpf (0-5); URINE RBC NEGATIVE /hpf (0-2)
[2017-03-04 02:32] VITALS: RESP 20
[2017-03-04 06:25] VITALS: BP 122/69; TEMP 98.1; O2SAT 98
[2017-03-04] MEDS ORDERED: Insulin Human NPH/Reg 70/30 Vial(3 ml) SC SCH ×2 (08:30→22:00)
[2017-03-04 09:26] VITALS: PULSE 82
[2017-03-04] MEDS ORDERED: Metoprolol Succinate 100 mg XL Tab PO SCH (10:00)
--- NOTE | 2017-03-04 10:05 | CON ---
DATE: 03/04/2017 HISTORY OF PRESENT ILLNESS: This is a 76-year-old woman well known to us with a history of coronary artery disease, status post recent multivessel PCI, who presented to the Emergency Room with back lambert n and dizziness. She denies any chest pain. She was seen in the Emergency Room and admitted. She s tates that when getting up yesterday, she had right flank pain, which limited her mobility. She then began to feel somewhat dizzy. She is unaware of any palpitations. Her symptoms persisted and she p resented to the Emergency Room. Initial evaluation was unremarkable and she was admitted for observa tion. She is feeling better today. She did undergo a PCI of her RCA and left circumflex last week. This was performed via left femoral artery access and had no complications. She does have a history of hypertension, diabetes and prior left carotid endarterectomy. She suffered a recent non-ST segme nt elevation myocardial infarction, underwent LAD stenting at that time and was brought back for stag ed PCI of her RCA and circumflex last week. She underwent a total abdominal hysterectomy in the past . CURRENT MEDICATIONS: Include aspirin, simvastatin, metoprolol, Imdur, Lotrel, insulin, Plavix and hy drochlorothiazide. ALLERGIES: She has no reported allergies. SOCIAL HISTORY: She does not smoke or drink. She is and lives alone. FAMILY HISTORY: Unremarkable. There is no history of premature heart disease. REVIEW OF SYSTEMS: A 10 point review of systems is otherwise unremarkable. PHYSICAL EXAMINATION: GENERAL: She is an elderly woman who appears comfortable at the present time. VITAL SIGNS: Her blood pressure is 122/70 with a pulse of 80 and sinus, respirations are 16. She is afebrile. HEENT: Normocephalic, atraumatic. NECK: No JVD. CHEST: Clear to auscultation and percussion. HEART: PMI in normal position with a soft systolic murmur left sternal border. ABDOMEN: Soft, nontender, normoactive bowel sounds. EXTREMITIES: No edema. Left groin site as mild ecchymosis, but otherwise appears unremarkable. SKIN: Warm and dry. PSYCHIATRIC: Normal mood and affect. NEUROLOGIC: No gross motor or sensory deficits appreciable. DIAGNOSTIC DATA: White count 6.4, hemoglobin and hematocrit 9.8 and 29.1 with a platelet count of 29 4,000. BUN and creatinine are 48 and 1.6. Troponin is negative. Electrocardiogram reveals sinus rh ythm with a right bundle branch block and no acute abnormalities. Chest x-ray and thoracic spine teresa ms were performed and results are pending. IMPRESSION: 1. Dizziness appears nonspecific, possibly due to anxiety. 2. Back pain appears musculoskeletal in nature. Doubt cardiac cause. No evidence of significant gr oin hematoma or anything to suggest a significant retroperitoneal hematoma at this time. 3. Coronary artery disease, status post recent multivessel percutaneous coronary intervention and re cent infarct. 4. Mild renal insufficiency, possibly with mild dehydration versus mild contrast-induced nephropathy . RECOMMENDATIONS: From a cardiac standpoint, she appears stable at this time. Discharge home would b e reasonable with no further testing. Followup monitoring of renal function is advised. Increased o ral fluid intake was recommended as well. Thank you for this consultation. Guido Negro MD cc: [id number] TT: 03/04/2017 10:04:19 Confirmation # [id number] Dictation # [id number] alex
--- NOTE | 2017-03-04 12:58 | CARD ---
APPROVED REPORT EKG Measurement Heart [id number] OK 138P35 [id number] <Conclusion> Normal sinus rhythm Right bundle branch block Inferior infarct, age undetermined Abnormal ECG
--- NOTE | 2017-03-04 14:03 | RAD ---
HISTORY: RECENT STENT/CP COMPARISON: 02/26/2017 FINDINGS: LUNGS: No active pulmonary disease. PLEURA: No significant pleural effusion identified, no pneumothorax apparent. CARDIOVASCULAR: Normal. OSSEOUS STRUCTURES: No significant abnormalities. VISUALIZED UPPER ABDOMEN: Normal. OTHER FINDINGS: None. IMPRESSION: No active disease.
--- NOTE | 2017-03-04 14:34 | RAD ---
HISTORY: r/o compression fracture COMPARISON: No prior. FINDINGS: BONES: Alignment maintained. No fracture. DISC SPACES: Normal. SOFT TISSUES: Normal. OTHER FINDINGS: None. IMPRESSION: Normal radiographs of the thoracic spine.
--- NOTE | 2017-03-04 15:16 | HP ---
CHIEF COMPLAINT AND HISTORY OF PRESENT ILLNESS: This is a 76-year-old female who is coming into the hospital with complaints of back pain. The patient has a past medical history of hypertension, diabe nestor, left carotid endarterectomy, coronary artery disease with stent. She says she had gone home and started having diarrhea, she was having back pain. She has been constipated. She was recently disc harged from the hospital. She says she feels well and wishes to go home. She has no chest pain or s hortness of breath, no headaches or dizziness, no weakness in the arms or legs. REVIEW OF SYSTEMS: All other review of symptoms are within normal limits. ALLERGIES: No known drug allergies. HOME MEDICATIONS: Have been reviewed in the chart. She is on Lotrel, aspirin, hydrochlorothiazide, metoprolol, insulin. PAST MEDICAL HISTORY: 1. Coronary artery disease with stenting. 2. Hypertension. 3. Diabetes type 2. 4. Dyslipidemia. SOCIAL HISTORY: She does not smoke or drink. She is and lives alone. FAMILY HISTORY: Noncontributory. PHYSICAL EXAMINATION: VITAL SIGNS: Temperature is 98.1, pulse is 70, blood pressure 122/69, respirations 20, O2 saturation 98%. Height is 5 feet 3, weight is 160 pounds. BMI is 28. GENERAL: Patient lying in bed, flat, and in no apparent distress. HEAD AND NECK EXAM: Atraumatic, normocephalic. Conjunctivae are pink. Throat clear and mouth with moist mucosa. Oropharynx benign. EYES: Extraocular movements are intact. PERRLA. NECK: Supple. No JVD, thyromegaly, or adenopathy. No bruits. HEART: S1 and S2 regular rate and rhythm. No murmurs, rubs, or gallops. LUNGS: Clear to auscultation bilaterally. No wheezing rales or rhonchi appreciated. No retraction s on exam. ABDOMEN: Soft, nontender, nondistended. Bowel sounds are positive in all quadrants. No rebound. No hepatosplenomegaly. EXTREMITIES: No cyanosis, clubbing, or edema. NEURO: No facial asymmetry, tongue is midline, no uvula deviation. Power is 5/5 in upper extremity and 5/5 in lower extremity. Sensation is normal in upper extremity and lower extremity. PSYCH: Awake, alert, oriented x3. No anxiety or depression symptoms. Good insight. Normal affec t. : No CVA tenderness VASCULAR: 2+ pulses in carotid and pedal pulses. SKIN: No erythema or abnormal nodules noted. SPINE: Normal curvature. LYMPHADENOPATHY: No anterior cervical or posterior cervical adenopathy. No inguinal adenopathy. ASSESSMENT: 1. Back pain. 2. Acute kidney injury, improving. 3. Diabetes type 2. 4. Hypertension. 5. Dyslipidemia. PLAN: The patient is currently comfortable. She is going to be discharged from the hospital after o vernight stay. She was seen by Dr. Negro who cleared the patient to be discharged. She is going to continue her hemoglobin. She is on amlodipine for hypertension. She is on Plavix and aspirin, th is will be continued. She is going to follow with primary care doctor, Dr. Zaidi in 1-2 weeks. CONDITION: Stable. ACTIVITY: Increase as tolerated. Jose Berkowitz MD cc: [id number] TT: 03/04/2017 15:15:31 jn
== END 2017-03-04 13:57 | disposition home or self-care (01) ==
LOC: ED 21:18 → ERH 23:17 → 2RSO 03-04 01:15
PROVIDERS: ADMIT Internal Medicine Nephrology; ATTEND Internal Medicine Nephrology
DX: E86.0 Dehydration (principal); R07.9 Chest pain, unspecified; N17.9 Acute kidney failure, unspecified; I25.10 Atherosclerotic heart disease of native coronary artery without angina pectoris; I10 Essential (primary) hypertension; E11.9 Type 2 diabetes mellitus without complications; R42 Dizziness and giddiness; E78.5 Hyperlipidemia, unspecified; M54.6 Pain in thoracic spine; I25.2 Old myocardial infarction; Z95.5 Presence of coronary angioplasty implant and graft; Z79.82 Long term (current) use of aspirin; Z79.4 Long term (current) use of insulin
CPT/HCPCS: 71010; 72070; 80053; 81001; 82948; 84443; 84484; 85027; 93005; 99285; G0378

== ENCOUNTER 2017-07-10 01:48 | Observation (INO) | payer MEDICARE, BC ==
[2017-07-10 01:48] VITALS: BMI 28.1
--- NOTE | 2017-07-10 02:22 | ED PDOC ---
Arrival/HPI - General Chief Complaint: Back Pain Time Seen by Provider: 07/10/17 01:54 Historian: Patient - History of Present Illness Narrative History of Present Illness (Text): 07/10/17 02:22 Daniela Salazar is a 77 year old female, whose past medical history includes CAD s/p multiple stents, diabetes, and hypertension, who presents to the ED complaining of chest heaviness radiating to her left arm tonight. Patient took 1 Aspirin at home. Patient also reports a history of chronic back pain. Patient denies any fever, chills, shortness of breath, nausea, vomiting, diarrhea, urinary symptoms , neck pain, headache, dizziness, or any other complaints. PMD: Dr. Zaidi Subassembly Assembler: Dr. Benson Symptom Onset: Gradual Symptom Course: Unchanged Quality: Other (Heaviness) Activities at Onset: Light Context: Home Past Medical History - Provider Review Nursing Documentation Reviewed: Yes - Infectious Disease Hx of Infectious Diseases: None - Tetanus Immunization Tetanus Immunization: >10 years Ago - Cardiac Hx Cardiac Disorders: Yes Hx Hypertension: Yes - Pulmonary Hx Respiratory Disorders: No - Neurological Hx Neurological Disorder: Yes Hx Dizziness: Yes Other/Comment: vertigo t-1 - HEENT Hx HEENT Disorder: No - Renal Hx Renal Disorder: No - Endocrine/Metabolic Hx Endocrine Disorders: Yes Hx Diabetes Mellitus Type 2: Yes - Hematological/Oncological Hx Blood Disorders: No - Integumentary Hx Dermatological Disorder: No - Musculoskeletal/Rheumatological Hx Falls: Yes - Gastrointestinal Hx Gastrointestinal Disorders: No - Genitourinary/Gynecological Hx Genitourinary Disorders: Yes - Psychiatric Hx Psychophysiologic Disorder: No Hx Substance Use: No - Past Surgical History Past Surgical History: No Previous - Surgical History Hx Hysterectomy: Yes - Anesthesia Hx Anesthesia: Yes - Suicidal Assessment Feels Threatened In Home Enviroment: No Family/Social History - Physician Review Nursing Documentation Reviewed: Yes Family/Social History: Unknown Family HX Smoking Status: Never Smoked Hx Alcohol Use: No Hx Substance Use: No Hx Substance Use Treatment: No Allergies/Home Meds Allergies/Adverse Reactions: Allergies No Known Allergies Allergy (Verified 07/10/17 02:04) Home Medications: Home Meds Medication Instructions Recorded Confirmed Insulin Human NPH/Reg [HumuLIN 15 units SUBCUT HS 12/07/14 07/10/17 70/30 (NPH/Reg)] Insulin Human NPH/Reg [HumuLIN 20 units SUBCUT DAILY 12/07/14 07/10/17 70/30 (NPH/Reg)] Isosorbide Mononitrate [Imdur] 60 mg PO DAILY 01/24/17 07/10/17 Metoprolol Succinate [Metoprolol 100 mg PO DAILY 01/24/17 07/10/17 Succinate Xl] hydroCHLOROthiazide [Hydrodiuril] 25 mg PO DAILY 01/24/17 07/10/17 Aspirin [Ecotrin] 81 mg PO DAILY 01/28/17 07/10/17 Lotrel 5-20 mg Capsule 1 tab PO DAILY 03/04/17 07/10/17 Review of Systems - Physician Review All systems were reviewed & negative as marked: Yes - Review of Systems Constitutional: Normal. absent: Fevers Eyes: Normal ENT: Normal Respiratory: Normal. absent: SOB, Cough Cardiovascular: Chest Pain Gastrointestinal: Normal. absent: Abdominal Pain, Diarrhea, Nausea, Vomiting Genitourinary Female: Normal. absent: Dysuria, Frequency, Hematuria, Urine Output Changes Musculoskeletal: absent: Neck Pain Skin: Normal. absent: Rash Neurological: Normal. absent: Headache, Dizziness Endocrine: Normal Hemo/Lymphatic: Normal Psychiatric: Normal Physical Exam Vital Signs Reviewed: Yes Vital Signs Temp Pulse Resp BP Pulse Ox 07/10/17 02:00 98.4 F 87 20 153/76 H 98 Temperature: Afebrile Blood Pressure: Normal Pulse: Regular Respiratory Rate: Normal Appearance: Positive for: Well-Appearing, Non-Toxic, Comfortable Pain Distress: None Mental Status: Positive for: Alert and Oriented X 3 - Systems Exam Head: Present: Atraumatic, Normocephalic Pupils: Present: PERRL Extroacular Muscles: Present: EOMI Conjunctiva: Present: Normal Mouth: Present: Moist Mucous Membranes Neck: Present: Normal Range of Motion Respiratory/Chest: Present: Clear to Auscultation, Good Air Exchange. No: Respiratory Distress, Accessory Muscle Use Cardiovascular: Present: Regular Rate and Rhythm, Normal S1, S2. No: Murmurs Abdomen: Present: Normal Bowel Sounds. No: Tenderness, Distention, Peritoneal Signs Back: Present: Normal Inspection Upper Extremity: Present: Normal Inspection. No: Cyanosis, Edema Lower Extremity: Present: Normal Inspection. No: Edema Neurological: Present: GCS=15, CN II-XII Intact, Speech Normal Skin: Present: Warm, Dry, Normal Color. No: Rashes Psychiatric: Present: Alert, Oriented x 3, Normal Insight, Normal Concentration Medical Decision Making ED Course and Treatment: 07/10/17 02:22 Impression: 77 year old female c/o chest heaviness radiating to her left arm tonight. Plan: -- EKG -- CXR -- Labs, cardiac enzymes, BNP -- Aspirin -- Nitroglycerin -- Morphine -- Reassess and disposition Progress Notes: Reviewed EKG, NSR at 86 bpm. RBBB. Inferior wall infarct. Non-specific ST/T wave changes. 07/10/17 04:35 Reviewed radiology, CXR shows no acute processes. 07/10/17 04:[address] Berkowitz, who is aware and agrees with plan. Accepts pt in to his service. Pt will go to Telemetry observation for chest pain. Requests Dr. Benson on consult. - Lab Interpretations Lab Results: 07/10/17 03:00 07/10/17 03:00 Lab Results 07/10/17 03:00: WBC 6.3, RBC 3.69, Hgb 10.0 L, Hct 30.7 L, MCV 83.2, MCH 27.1, MCHC 32.6, RDW 14.3, Plt Count 247, MPV 11.3 H 07/10/17 03:00: Sodium 141, Potassium 4.0, Chloride 107, Carbon Dioxide 24, Anion Gap 14, BUN 33 H, Creatinine 1.4, Est GFR ( Amer) 44, Est GFR (Non- Af Amer) 36, Random Glucose 100, Calcium 8.6, Total Bilirubin 0.4, AST 31, ALT 27, Alkaline Phosphatase 78, Lactate Dehydrogenase 500, Total Creatine Kinase 94 , Troponin I < 0.01 D, NT-Pro-B Natriuret Pep 166, Total Protein 6.8, Albumin 3.9, Globulin 2.9, Albumin/Globulin Ratio 1.3 07/10/17 03:00: PT 10.7, INR 0.99, APTT 25.3 I have reviewed the lab results: Yes - RAD Interpretation Radiology Orders: 07/10/17 03:40 CHEST PORTABLE [RAD] Stat Trial Judge: ED Physician - EKG Interpretation Interpreted by ED Physician: Yes Type: 12 lead EKG - Medication Orders Current Medication Orders: Discontinued Medications Aspirin (Aspirin) 325 mg PO ONCE STA Stop: 07/10/17 02:27 Last Admin: 07/10/17 03:10 Dose: 325 mg Aspirin (Aspirin Chewable) Confirm Administered Dose 243 mg .ROUTE .STK-MED ONE Stop: 07/10/17 03:09 Last Admin: 07/10/17 03:10 Dose: Morphine Sulfate (Morphine) 2 mg IVP STAT STA Stop: 07/10/17 02:26 Last Admin: 07/10/17 03:10 Dose: 2 mg MAR Pain Assessment Document 07/10/17 03:10 SC (Rec: 07/10/17 03:10 [id number] Pain Reassessment Is this a pain reassessment? No Sleep Is patient sleeping during reassessment? No Presence of Pain Presence of Pain Yes Pain Scale Used Pain Scale Used Numeric Location Pain Location Body Site Back Description Description Constant Intensity of Pain at present 5 IVP Administration Document 07/10/17 03:10 SC (Rec: 07/10/17 03:10 [id number] Charges for Administration # of IVP Administrations 1 Nitroglycerin (Nitro-Bid 2% Oint) 1 ea TOP ONCE STA Stop: 07/10/17 02:27 Last Admin: 07/10/17 03:10 Dose: 1 ea - Scribe Statement The provider has reviewed the documentation as recorded by the Scribliz Paula All medical record entries made by the Scribe were at my direction and personally dictated by me. I have reviewed the chart and agree that the record accurately reflects my personal performance of the history, physical exam, medical decision making, and the department course for this patient. I have also personally directed, reviewed, and agree with the discharge instructions and disposition. Disposition/Present on Arrival - Present on Arrival Any Indicators Present on Arrival: No History of DVT/PE: No History of Uncontrolled Diabetes: No Urinary Catheter: No History of Decub. Ulcer: No History Surgical Site Infection Following: None - Disposition Have Diagnosis and Disposition been Completed?: Yes Diagnosis: Chest pain Disposition: HOSPITALIZED Disposition Time: 04:44 Patient Plan: Observation Condition: STABLE Discharge Instructions (ExitCare): Chest Pain (ED) Forms: [employer] (Indonesian)
[2017-07-10] MEDS ORDERED: Morphine 2 mg/ml ISec IVP STA (02:25)
[2017-07-10] MEDS ORDERED: Nitroglycerin 2% Ointment Foilpak UD TOP STA (02:26)
[2017-07-10 03:21] LABS: HEMATOCRIT 30.7 % (36.0-48.0); MEAN CELL VOLUME 83.2 fl (80.0-105.0); MEAN CORPUSCULAR HEMOGLOBIN 27.1 pg (25.0-35.0); MEAN CORPUSCULAR HGB CONC 32.6 g/dl (31.0-37.0); MEAN PLATELET VOLUME 11.3 fl (7.0-11.0); RED CELL DISTRIBUTION WIDTH 14.3 % (11.5-14.5); WHITE BLOOD COUNT 6.3 10^3/ul (4.5-11.0)
[2017-07-10 03:26] LABS: INR 0.99 (0.93-1.08); PARTIAL THROMBOPLASTIN TIME 25.3 Seconds (23.7-30.8)
[2017-07-10 03:32] LABS: ALB/GLOB RATIO 1.3 (1.1-1.8); ALKALINE PHOSPHATASE 78 U/L (38-126); ALT/SGPT 27 U/L (7-56); AST/SGOT 31 U/L (14-36); BILIRUBIN,TOTAL 0.4 mg/dL (0.2-1.3); BLOOD UREA NITROGEN 33 mg/dL (7-21); CALCIUM 8.6 mg/dL (8.4-10.5); CARBON DIOXIDE 24 mmol/L (21-33); CHLORIDE 107 mmol/L (98-107); GFR AFRICAN-AMERICAN 44; GLUCOSE,RANDOM 100 mg/dL (70-110); SODIUM 141 mmol/L (132-148); TOTAL PROTEIN 6.8 g/dL (5.8-8.3)
[2017-07-10 03:43] LABS: TROPONIN I < 0.01 ng/mL
[2017-07-10 08:07] VITALS: O2SAT 96
[2017-07-10] MEDS: Insulin Reg-HIGH-Coverage SC SCH ×4 (08:22→22:26)
[2017-07-10] MEDS: Metoprolol Succinate 100 mg XL Tab PO SCH (09:39)
[2017-07-10] MEDS ORDERED: LOTREL PO SCH (10:00)
--- NOTE | 2017-07-10 10:33 | HP ---
CHIEF COMPLAINT AND HISTORY OF PRESENT ILLNESS: This is a 77-year-old female who has come in to the hospital who has a past medical history of coronary artery disease and stenting done by . She has diabetes and hypertension. She said she was having chest tightness that was substernal, it was going to the left arm. She had taken aspirin at home. She came in for further evaluation. She also complained of dizziness. She said that symptoms are improved at this point. She has no complaints of any abdominal pain or back pain. No dysuria or frequency, no nocturia. No weakness in the arms or legs. REVIEW OF SYMPTOMS: All other review of symptoms are within normal limits. She is able to ambulate okay. ALLERGIES: NO KNOWN DRUG ALLERGIES. HOME MEDICATIONS: Insulin 70/30 16 units at night and insulin 70/30 20 units in the morning, Imdur, metoprolol, hydrochlorothiazide, aspirin, and Lotrel. PAST MEDICAL HISTORY: 1. Coronary artery disease with stent. 2. Hypertension. 3. Diabetes type 2. 4. Dyslipidemia. SOCIAL HISTORY: She does not smoke or drink. She is and lives alone. FAMILY HISTORY: Noncontributory. PHYSICAL EXAMINATION: VITAL SIGNS: She has a temperature of 98.4, pulse of 87, blood pressure is 153/76, respirations 20, O2 saturation 98%. Height is 5 feet 4 inches, weight is 162 pounds, BMI is 27.8. GENERAL: The patient lying in bed, uncomfortable, and in no acute distress. HEENT: Atraumatic and normocephalic. Anicteric sclerae. Moist mucosa. [place] conjunctivae. No oral lesions. NECK: No JVD, anterior and posterior adenopathy, thyromegaly, or bruits. CARDIOVASCULAR: S1 and S2 regular. No murmur, rubs, or gallop. LUNGS: Clear to auscultation bilaterally. No wheezes, rales, or rhonchi. ABDOMEN: Bowel sounds are positive. Soft, nontender and nondistended. No hepatosplenomegaly. No rebound and no guarding. EXTREMITIES: No cyanosis, clubbing, or edema. NEUROLOGIC: No facial asymmetry. Tongue is midline. No uvula deviation. Power is 5/5 upper extremity and lower extremity. Sensation intact in upper extremity and lower extremity. PSYCHIATRIC: She is awake, alert and oriented x3. No anxiety or depression. She has normal affect. GENITOURINARY: No CVA tenderness. VASCULAR: 2+ pulses in the carotid pulses and pedal pulses. SKIN: No erythema or nodules SPINE: Shows normal curvature. EXTREMITIES: No Cyanosis and clubbing, no edema. LABORATORY DATA: White count of 6.3, hemoglobin is 10. is 0.9. Chemistry shows a sodium 141, potassium 4.0, creatinine is 1.4. Troponin is 0.01. Chest x-ray done shows no infiltrates. ASSESSMENT: 1. Chest pain. 2. Coronary artery disease with stent. 3. Diabetes type 2. 4. Hypertension. 5. Dyslipidemia. PLAN: The patient is currently comfortable. She had come in to the hospital with chest pain. Her initial troponin has been negative. The patient has an echo done in 01/2017 that showed aortic valve of [id number] calcified, there is trace aortic regurgitation. The patient had a cardiac cath done. The cardiac cath showed patent LAD, there was successful PCI of an RCA and circumflex artery. She is going to be admitted for further evaluation. She is going to be seen by Cardiology with Dr. Benson. The patient is going to continue with her aspirin and her metoprolol. She is going to continue with insulin for her diabetes. She is on Plavix as well. She is going to be on a heart healthy diet. We will repeat the second troponin. The patient is currently comfortable. She is waiting for telemetry bed. I saw the patient in emergency room. Jose Berkowitz MD
[2017-07-10] MEDS: Insulin Human NPH/Reg 70/30 Vial(3 ml) SC SCH (10:50)
--- NOTE | 2017-07-10 11:47 | CARD ---
APPROVED REPORT EKG Measurement Heart [id number] <Conclusion> Normal sinus rhythm Possible Left atrial enlargement Right bundle branch block Possible Inferior infarct, age undetermined
--- NOTE | 2017-07-10 12:02 | RAD ---
HISTORY: chest pain COMPARISON: Comparison chest dated 03/03/2017 FINDINGS: LUNGS: Poor inspiration with low lung volumes, crowded bronchovascular markings and mild bibasilar atelectasis PLEURA: No significant pleural effusion identified, no pneumothorax apparent. CARDIOVASCULAR: Norm heart size is within range of normal. OSSEOUS STRUCTURES: Mild degenerative changes both shoulder girdles. Mild multilevel degenerative spondylosis of the thoracic spine VISUALIZED UPPER ABDOMEN: Normal. OTHER FINDINGS: None. IMPRESSION: Poor inspiration with low lung volumes, crowded bronchovascular markings and mild bibasilar atelectasis
[2017-07-10] MEDS ORDERED: Insulin Human NPH/Reg 70/30 Vial(3 ml) SC SCH (22:00)
[2017-07-11] MEDS: Insulin Reg-HIGH-Coverage SC SCH (08:15)
[2017-07-11] MEDS: Insulin Human NPH/Reg 70/30 Vial(3 ml) SC SCH (09:21)
[2017-07-11 09:23] VITALS: BP 153/68; PULSE 74
[2017-07-11] MEDS: Metoprolol Succinate 100 mg XL Tab PO SCH (09:25)
--- NOTE | 2017-07-11 09:52 | PN ---
SUBJECTIVE: The patient is a 77-year-old female who came into the hospital because of chest pain. She was complaining of dizziness. She has a history of coronary artery disease. She has a stent in place from Dr. Negro. She said she feels well. She has no complaints of any chest pain or shortness of breath. She has cardiac enzymes, which were negative. She may need a stress test as an outpatient. PHYSICAL EXAMINATION: VITAL SIGNS: Temperature is 98.5, pulse is 72, blood pressure is 163/74, respirations 18. GENERAL: The patient is lying in bed, flat, comfortable. HEENT: No oral lesion. Anicteric sclerae. Moist mucosa. NECK: No JVD, adenopathy, or thyromegaly. CARDIOVASCULAR: S1 and S2, regular. No murmurs, rubs, or gallops. LUNGS: Clear to auscultation bilaterally. No wheeze, rales, or rhonchi. ABDOMEN: Bowel sounds are positive, soft, nontender and nondistended. EXTREMITIES: No cyanosis, clubbing or edema. ASSESSMENT: 1. Chest pain, resolved. 2. Coronary artery disease with stent. 3. Diabetes type 2. 4. Hypertension. 5. Dyslipidemia. PLAN: The patient is on aspirin, going to continue that and insulin for her diabetes. She is on hydrochlorothiazide for her hypertension. She is on Norvasc for her hypertension as well. She is on Plavix for her stent. She is on Zestril for her hypertension. We will speak to Dr. Benson to see if he clears the patient for discharge. CONDITION: Stable. ACTIVITIES: Increase as tolerated. FOLLOWUP: 1. With Dr. Benson in 1 week. 2. Follow up with Dr. Zaidi in 2 to 3 weeks. Jose Berkowitz MD
[2017-07-11 11:14] VITALS: RESP 18; TEMP 98.2
--- NOTE | 2017-07-11 14:26 | CARD ---
APPROVED REPORT EKG Measurement Heart [id number] <Conclusion> Normal sinus rhythm Possible Left atrial enlargement Right bundle branch block Possible Inferior infarct, age undetermined
--- NOTE | 2017-07-11 14:49 | CON ---
DATE: 07/11/2017 CONSULTATION INDICATIONS: Chest pain and dizziness. HISTORY OF PRESENT ILLNESS: This is a 77-year-old woman known to me with known coronary artery disease, status post coronary interventions, and myocardial infarction several months ago, who is admitted to the emergency room on 07/10/2017 with acute onset of dizziness associated with back, left arm discomfort, and heaviness in the chest. She came to the emergency room and was admitted, subsequently she is had two negative troponins. Her EKG was unchanged from a chronic sinus rhythm with right bundle-branch block and the symptoms have subsided. This morning she feels better without chest pain, back pain, dizziness, or shortness of breath. She was able to ambulate yesterday without symptoms. There was no osteopenia, PND, syncope, palpitation, edema, fever, chills, cough, sputum production, hemoptysis, abdominal pain, nausea, vomiting, diarrhea, constipation, or melena. PAST MEDICAL HISTORY: Her past medical history is notable for coronary artery disease, she underwent coronary intervention for acute NC, this was an LAD stent. Subsequently, she underwent elective stenting of the right coronary artery, and circumflex artery in 02/2017. She has history of hypertension, diabetes, hyperlipidemia, left carotid and endarterectomy. There was no history of congestive heart failure, stroke, TIA, diabetes or gout. MEDICATIONS AT THE TIME OF ADMISSION: Include Lotrel, aspirin, Insulin, hydrochlorothiazide, Imdur, metoprolol, and Plavix. ALLERGIES: THERE WERE NO KNOWN MEDICATIONS ALLERGY. SOCIAL HISTORY: She is . She lives at home. She does not smoke cigarette. She does not drink alcohol. She is ambulatory. FAMILY HISTORY: Noncontributory. REVIEW OF SYSTEMS: A 10-point review of systems is otherwise unremarkable except as noted above. PHYSICAL EXAMINATION: GENERAL: On physical examination, she is well-developed, elderly woman, lying in bed on telemetry and in no acute distress. VITAL SIGNS: Notable for sinus rhythm 77 beats per minute, afebrile, blood pressure of 152/80, respirations of 18 to 20, and O2 saturation of 96% on room air. HEENT: Exam reveals no neck vein distention, thyromegaly, or carotid bruits. Mucous membranes are moist. Conjunctivae are pink. NECK: Supple. LUNGS: Lungs mclaughlin clear throughout. CARDIOVASCULAR: Examination of the heart reveals normal first and second heart sounds. No murmur, gallop, rub or click. GASTROINTESTINAL: Abdominal exam is unremarkable. Bowel sounds are present. No mass, organomegaly, tenderness, rebound, or guarding. No CVA tenderness. No palpable abdominal aortic aneurysm. EXTREMITIES: Exam revealed no cyanosis, clubbing, or edema. NEUROLOGIC: She was awake, alert, and oriented. PSYCHIATRIC: Normal as to mood and affect. SKIN: Warm and dry. No rash or cellulitis. LABORATORY AND IMAGING DATA: EKG demonstrates regular sinus rhythm, right bundle-branch block, no acute changes, no change from prior EKG. Chest x-rays reveals, poor inspiration with low lung volumes, crowded bronchovesicular markings with mild bibasilar atelectasis. Hemoglobin of 10, hematocrit of 30.7, white count is normal, and platelet count is normal. PT, INR and PTT are normal. Electrolytes: BUN and creatinine are unremarkable. Blood sugars noted and unremarkable. LFTs are unremarkable. CK is 94. Troponin is negative x2. BNP is 166. IMPRESSION: Daniela aSlazar is a 77-year-old woman with known coronary artery disease, status post myocardial infarction with multiple stents, admitted with multiple symptoms including dizziness, left arm pain and back pain which is somewhat chronic, and heaviness in the chest. There has no evidence of arrhythmia, myocardial infarction, or current symptoms at this point. The troponin levels this morning is pending, I would repeat her EKG, I will check postural vital signs. She can ambulate. She can be consider for discharge later today with outpatient followup and possible nuclear stress testing on an outpatient basis. She will keep us informed of any recurrent symptoms. I review her old records. I will discuss her case with you. Corbin Benson MD MARIANO
== END 2017-07-11 11:20 | disposition home or self-care (01) ==
LOC: ED 01:48 → ERH 04:41 → 2RNO 08:11
PROVIDERS: ADMIT Internal Medicine Nephrology; ATTEND Internal Medicine Nephrology
DX: R07.9 Chest pain, unspecified (principal); I25.10 Atherosclerotic heart disease of native coronary artery without angina pectoris; I25.2 Old myocardial infarction; I10 Essential (primary) hypertension; E11.9 Type 2 diabetes mellitus without complications; E78.5 Hyperlipidemia, unspecified; M54.9 Dorsalgia, unspecified; G89.29 Other chronic pain; R42 Dizziness and giddiness; Z79.82 Long term (current) use of aspirin; Z95.5 Presence of coronary angioplasty implant and graft; Z90.710 Acquired absence of both cervix and uterus
CPT/HCPCS: 36415; 71010; 80053; 82550; 82948; 83615; 83880; 84443; 84484; 85027; 85610; 85730; 93005; 96374; 99285; G0378; J2270

== ENCOUNTER 2017-11-27 02:52 | Inpatient (IN) | payer MEDICARE, BC ==
--- NOTE | 2017-11-27 03:07 | ED PDOC ---
Arrival/HPI - General Time Seen by Provider: 11/27/17 03:01 Historian: Patient - History of Present Illness Narrative History of Present Illness (Text): 11/27/17 03:07 Daniela Salazar is a 77 year old female, whose past medical history includes CAD s/p multiple stents, diabetes, and hypertension, who presents to the ED brought in by EMS complaining of chest pain. Patient states she has been experiencing intermittent chest heaviness with associated headache and some dizziness at times since this afternoon. Patient notes she felt like she was going to fall and collapse earlier today. Patient denies any fever, chills, shortness of breath, nausea, vomiting, diarrhea, urinary symptoms, back pain, neck pain, focal neurological deficits, or any other complaints. Symptom Onset: Gradual Symptom Course: Unchanged Activities at Onset: Light Context: Home Past Medical History - Provider Review Nursing Documentation Reviewed: Yes - Infectious Disease Hx of Infectious Diseases: None - Tetanus Immunization Tetanus Immunization: >10 years Ago - Cardiac Hx Cardiac Disorders: Yes Hx Hypertension: Yes - Pulmonary Hx Respiratory Disorders: No - Neurological Hx Dizziness: Yes - HEENT Hx HEENT Disorder: No - Renal Hx Renal Disorder: No - Endocrine/Metabolic Hx Diabetes Mellitus Type 2: Yes - Hematological/Oncological Hx Blood Disorders: No - Integumentary Hx Dermatological Disorder: No - Musculoskeletal/Rheumatological Hx Back Pain: Yes Hx Falls: No - Gastrointestinal Hx Gastrointestinal Disorders: No - Genitourinary/Gynecological Hx Genitourinary Disorders: Yes - Psychiatric Hx Psychophysiologic Disorder: No Hx Substance Use: No - Past Surgical History Past Surgical History: No Previous - Surgical History Hx Cardiac Catheterization: Yes Hx Coronary Stent: Yes (x3) Hx Hysterectomy: Yes - Anesthesia Hx Anesthesia: Yes - Suicidal Assessment Feels Threatened In Home Enviroment: No Family/Social History - Physician Review Nursing Documentation Reviewed: Yes Family/Social History: Unknown Family HX Smoking Status: Never Smoked Hx Alcohol Use: No Hx Substance Use: No Hx Substance Use Treatment: No Allergies/Home Meds Allergies/Adverse Reactions: Allergies No Known Allergies Allergy (Verified 07/10/17 02:04) Home Medications: Home Meds Medication Instructions Recorded Confirmed Isosorbide Mononitrate [Imdur] 60 mg PO DAILY 01/24/17 11/27/17 Metoprolol Succinate 100 mg PO DAILY 01/24/17 11/27/17 hydroCHLOROthiazide [Hydrodiuril] 25 mg PO DAILY 01/24/17 11/27/17 Aspirin [Ecotrin] 81 mg PO DAILY 01/28/17 11/27/17 Lotrel 5-20 mg Capsule 1 tab PO DAILY 03/04/17 11/27/17 Insulin Human NPH/Reg [HumuLIN 20 unit SQ BID 11/27/17 11/27/17 70/30 (NPH/Reg)] Review of Systems - Physician Review All systems were reviewed & negative as marked: Yes - Review of Systems Constitutional: Normal. absent: Fevers Eyes: Normal ENT: Normal Respiratory: Normal. absent: SOB, Cough Cardiovascular: Chest Pain Gastrointestinal: Normal. absent: Abdominal Pain, Diarrhea, Nausea, Vomiting Genitourinary Female: Normal. absent: Dysuria, Frequency, Hematuria, Urine Output Changes Musculoskeletal: Normal. absent: Back Pain, Neck Pain Skin: Normal. absent: Rash Neurological: Headache, Dizziness Endocrine: Normal Hemo/Lymphatic: Normal Psychiatric: Normal Physical Exam Vital Signs Reviewed: Yes Vital Signs Temp Pulse Pulse Resp BP Pulse Ox 11/27/17 05:21 71 16 139/78 95 11/27/17 04:51 79 18 194/89 H 98 11/27/17 04:44 81 194/89 H 11/27/17 03:30 77 11/27/17 03:05 98.3 F 83 18 178/90 H 96 Temperature: Afebrile Blood Pressure: Hypertensive Pulse: Regular Respiratory Rate: Normal Appearance: Positive for: Well-Appearing, Non-Toxic, Comfortable Pain Distress: None Mental Status: Positive for: Alert and Oriented X 3 - Systems Exam Head: Present: Atraumatic, Normocephalic Pupils: Present: PERRL Extroacular Muscles: Present: EOMI Conjunctiva: Present: Normal Mouth: Present: Moist Mucous Membranes Neck: Present: Normal Range of Motion Respiratory/Chest: Present: Clear to Auscultation, Good Air Exchange. No: Respiratory Distress, Accessory Muscle Use Cardiovascular: Present: Regular Rate and Rhythm, Normal S1, S2. No: Murmurs Abdomen: Present: Normal Bowel Sounds. No: Tenderness, Distention, Peritoneal Signs Back: Present: Normal Inspection Upper Extremity: Present: Normal Inspection. No: Cyanosis, Edema Lower Extremity: Present: Normal Inspection. No: Edema Neurological: Present: GCS=15, CN II-XII Intact, Speech Normal Skin: Present: Warm, Dry, Normal Color. No: Rashes Psychiatric: Present: Alert, Oriented x 3, Normal Insight, Normal Concentration Medical Decision Making ED Course and Treatment: 11/27/17 03:07 Impression: 77 year old female complaining of chest heaviness, headache, and dizziness since yesterday. Plan: -- EKG -- Chest X-ray -- Labs, cardiac enzymes, BNP -- Reassess and disposition Prior Visits: Notes and results from previous visits were reviewed. On 07/10/2017, pt was seen in the Emergency department for chest heaviness. Pt was admitted to the hospital for further evaluation. Progress Notes: Reviewed EKG, NSR at 81 bpm. RBBB. Inferior infarct. Non-specific ST/T wave changes. 11/27/17 04:36 Chest X-ray reviewed, shows no acute processes. 11/27/17 05:[address] Berkowitz, who is aware and agrees with plan. Accepts pt in to her service. Pt will go to Telemetry observation for chest pain. Requests Dr. Benson on consult. - Lab Interpretations Lab Results: 11/27/17 03:22 11/27/17 03:22 Lab Results 11/27/17 03:22: WBC 6.1, RBC 4.09, Hgb 11.2 L, Hct 34.6 L, MCV 84.6, MCH 27.4, MCHC 32.4, RDW 14.6 H, Plt Count 294, MPV 11.2 H 11/27/17 03:22: Sodium 141, Potassium 4.0, Chloride 104, Carbon Dioxide 26, Anion Gap 15, BUN 36 H, Creatinine 1.5 H, Est GFR ( Amer) 41, Est GFR ( Non-Af Amer) 34, Random Glucose 116 H, Calcium 9.3, Total Bilirubin 0.5, AST 38 H D, ALT 25, Alkaline Phosphatase 78, Lactate Dehydrogenase 550, Total Creatine Kinase 121, Troponin I < 0.01, NT-Pro-B Natriuret Pep 485 H, Total Protein 7.1, Albumin 4.0, Globulin 3.2, Albumin/Globulin Ratio 1.3 11/27/17 03:22: PT 10.5, INR 0.91 L, APTT 30.9 I have reviewed the lab results: Yes - RAD Interpretation Radiology Orders: 11/27/17 03:08 CHEST PORTABLE [RAD] Stat Licensed Journeyman Electrician: ED Physician - EKG Interpretation Interpreted by ED Physician: Yes Type: 12 lead EKG - Medication Orders Current Medication Orders: Discontinued Medications Aspirin (Aspirin) 325 mg PO ONCE STA Stop: 11/27/17 03:33 Last Admin: 11/27/17 03:40 Dose: 325 mg Clonidine HCl (Catapres) 0.2 mg PO STAT STA Stop: 11/27/17 04:37 Last Admin: 11/27/17 04:44 Dose: 0.2 mg MAR Pulse and Blood Pressure Document 11/27/17 04:44 MS (Rec: 11/27/17 04:45 MS [facility] – [id number]) Pulse Pulse Rate (60-90 beats/min) 81 Blood Pressure Blood Pressure (100/60-150/90 mm Hg) 194/89 Nitroglycerin (Nitro-Bid 2% Oint) 1 ea TOP ONCE STA Stop: 11/27/17 03:33 Last Admin: 11/27/17 03:41 Dose: 1 ea - Scribe Statement The provider has reviewed the documentation as recorded by the Nik Paula Provider Scribe Attestation: All medical record entries made by the Scribe were at my direction and personally dictated by me. I have reviewed the chart and agree that the record accurately reflects my personal performance of the history, physical exam, medical decision making, and the department course for this patient. I have also personally directed, reviewed, and agree with the discharge instructions and disposition. Disposition/Present on Arrival - Present on Arrival Any Indicators Present on Arrival: No History of DVT/PE: No History of Uncontrolled Diabetes: No Urinary Catheter: No History of Decub. Ulcer: No History Surgical Site Infection Following: None - Disposition Have Diagnosis and Disposition been Completed?: Yes Diagnosis: Chest pain, Uncontrolled hypertension Disposition: HOSPITALIZED Disposition Time: 05:56 Patient Plan: Observation Condition: STABLE Discharge Instructions (ExitCare): Chest Pain (ED)
[2017-11-27 03:08] VITALS: BMI 27.4
[2017-11-27] MEDS ORDERED: Nitroglycerin 2% Ointment Foilpak UD TOP STA (03:32)
[2017-11-27 03:42] LABS: RBC 4.09 10^6/uL (3.5-6.1); WHITE BLOOD COUNT 6.1 10^3/ul (4.5-11.0)
[2017-11-27 03:43] LABS: ALB/GLOB RATIO 1.3 (1.1-1.8); ALT/SGPT 25 U/L (7-56); AST/SGOT 38 U/L (14-36); BLOOD UREA NITROGEN 36 mg/dL (7-21); CALCIUM 9.3 mg/dL (8.4-10.5); GFR AFRICAN-AMERICAN 41; GFR NON-AFRICAN AMERICAN 34; HEMOGLOBIN 11.2 g/dL (12.0-16.0); MEAN CELL VOLUME 84.6 fl (80.0-105.0); MEAN CORPUSCULAR HEMOGLOBIN 27.4 pg (25.0-35.0); MEAN CORPUSCULAR HGB CONC 32.4 g/dl (31.0-37.0); MEAN PLATELET VOLUME 11.2 fl (7.0-11.0); RED CELL DISTRIBUTION WIDTH 14.6 % (11.5-14.5)
[2017-11-27 03:51] LABS: INR 0.91 (0.93-1.08); PARTIAL THROMBOPLASTIN TIME 30.9 Seconds (25.1-36.5); PROTHROMBIN TIME 10.5 SECONDS (9.4-12.5)
[2017-11-27 03:54] LABS: B-TYPE NATRIURETIC PEPTIDE 485 pg/mL (0-450); TROPONIN I < 0.01 ng/mL
--- NOTE | 2017-11-27 09:35 | RAD ---
HISTORY: Chest pain COMPARISON: 07/10/2017 FINDINGS: LUNGS: The lungs are clear. PLEURA: No significant pleural effusion identified, no pneumothorax apparent. CARDIOVASCULAR: Normal. OSSEOUS STRUCTURES: No significant abnormalities. VISUALIZED UPPER ABDOMEN: Normal. OTHER FINDINGS: None. IMPRESSION: No active pulmonary disease.
--- NOTE | 2017-11-27 09:42 | CARD ---
APPROVED REPORT EKG Measurement Heart [id number] <Conclusion> Normal sinus rhythm Possible Left atrial enlargement Right bundle branch block Inferior infarct, old No Change
[2017-11-27] MEDS ORDERED: LOTREL PO SCH (10:00)
[2017-11-27] MEDS: LOTREL PO SCH (10:56)
[2017-11-27] MEDS: Metoprolol Succinate 100 mg XL Tab PO SCH (10:56)
[2017-11-27] MEDS ORDERED: Pneumococcal 23-Valent Vaccine IM ONE (16:19)
[2017-11-27] MEDS ORDERED: Influenza Vaccine 60 mcg/0.5 mL SYR (4YR UP) IM ONE (16:19)
--- NOTE | 2017-11-27 16:49 | HP ---
CHIEF COMPLAINT AND HISTORY OF PRESENT ILLNESS: The patient is a 77-year-old female who is coming into the hospital because of chest pain. She states she was complaining of dizziness as well. She was concerned, so she came in for further evaluation. She does have a history of coronary artery disease with stents. She had seen Dr. Negro in the past. The patient has diabetes type 2 and hypertension. She has no complaint of any chest pain. She has no fevers or chills. No nausea. No vomiting. No abdominal pain. No back pain. No dysuria or frequency. No nocturia. REVIEW OF SYSTEMS: All other review of symptoms are within normal limits except what is mentioned. ALLERGIES: NO KNOWN DRUG ALLERGIES. HOME MEDICATIONS: Isosorbide, metoprolol, hydrochlorothiazide, aspirin, Lotrel, insulin 70/30. PAST MEDICAL HISTORY: 1. Coronary artery disease with stents. 2. Hypertension. 3. Diabetes type 2. 4. Dyslipidemia. SOCIAL HISTORY: She does not smoke or drink. She is a , lives alone. FAMILY HISTORY: Noncontributory. PHYSICAL EXAMINATION: VITAL SIGNS: Temperature is 98, pulse is 71, blood pressure 150/77, respirations 18, O2 saturation 96%. Height is 5 feet 4 inches, weight is 160 pounds, BMI is 27.5. GENERAL: The patient lying in bed, uncomfortable, and in no acute distress. HEENT: Atraumatic and normocephalic. Anicteric sclerae. Moist mucosa. Graball conjunctivae. No oral lesions. NECK: No JVD, anterior and posterior adenopathy, thyromegaly, or bruits. CARDIOVASCULAR: S1 and S2 regular. No murmur, rubs, or gallop. LUNGS: Clear to auscultation bilaterally. No wheezes, rales, or rhonchi. ABDOMEN: Bowel sounds are positive. Soft, nontender and nondistended. No hepatosplenomegaly. No rebound and no guarding. EXTREMITIES: No cyanosis, clubbing, or edema. NEUROLOGIC: No facial asymmetry. Tongue is midline. No uvula deviation. Power is 5/5 upper extremity and lower extremity. Sensation intact in upper extremity and lower extremity. PSYCHIATRIC: She is awake, alert and oriented x3. No anxiety or depression. She has normal affect. GENITOURINARY: No CVA tenderness. VASCULAR: 2+ pulses in the carotid pulses and pedal pulses. SKIN: No erythema or nodules. SPINE: Shows normal curvature. LABORATORY DATA: White count is 6.1, hemoglobin 11.2 0.9. Chemistry shows 1.5 with a troponin 0.01. EKG done, shows sinus rhythm with a rate of 81. There is right bundle-branch block. EKG shows no infiltrates. ASSESSMENT: 1. Chest pain. 2. Coronary artery disease with stent. 3. Diabetes type 2. 4. Hypertension. 5. Dyslipidemia. PLAN: The patient is currently comfortable. Her initial troponin is negative. Her EKG does not show any acute signs of ischemia. I will get Cardiology to evaluate the patient. She is going to be on her home medications with aspirin. I will continue her on hydrochlorothiazide. She is also on Lotrel for her coronary artery disease. She is on metoprolol. She is going to be Lotrel. The patient is also going to be on insulin. Jose Berkowitz MD
[2017-11-27] MEDS: Insulin Human NPH/Reg 70/30 Vial(3 ml) SC SCH (17:39)
--- NOTE | 2017-11-27 18:02 | CON ---
DATE: 11/27/2017 INDICATIONS: Chest pain, coronary artery disease. HISTORY OF PRESENT ILLNESS: This is a 77-year-old woman known to us, admitted through the emergency room early this morning, when she complained of chest discomfort. This was a mid chest discomfort associated with not feeling well, fatigue, and weakness. There may have been some headache and dizziness as well. Subsequently, she has been in the emergency room and her symptoms have improved, although she still feels very fatigued. There is no chest pain at the moment. There is no shortness of breath, orthopnea, PND, syncope, vertigo, palpitation, edema, claudication, fever, chills, cough, rigors, sweats, hemoptysis, abdominal pain, nausea, vomiting, diarrhea, constipation, or melena. PAST MEDICAL HISTORY: Notable for coronary artery disease. She has undergone remote LAD stenting following a myocardial infarction. In February 2017, she underwent stenting of the right coronary artery and circumflex artery. She has a history of right bundle branch block, hypertension, diabetes, hyperlipidemia, and a carotid endarterectomy. She has had a hysterectomy. MEDICATIONS: At the time of admission include isosorbide, metoprolol, hydrochlorothiazide, aspirin, Lotrel, and insulin. ALLERGIES: THERE ARE NO KNOWN MEDICATION ALLERGIES. SOCIAL HISTORY: She lives at home. She is . She is ambulatory. She does not smoke cigarettes. She does not drink alcohol significantly. REVIEW OF SYSTEMS: A 10-point review of systems is otherwise unremarkable except as noted above. FAMILY HISTORY: Noncontributory. PHYSICAL EXAMINATION: GENERAL: She is a well-developed, elderly woman, lying on the stretcher in the emergency room, in no acute distress. VITAL SIGNS: Unremarkable. She is in sinus rhythm at 82 beats per minute. She is afebrile. Blood pressure 126/71, respirations 16, O2 sat 94% on room air. HEENT: Reveals no neck vein distention, thyromegaly, or carotid bruits. Mucous membranes are moist. Conjunctivae are pink. NECK: Supple. LUNGS: Lungs mclaughlin clear throughout. HEART: Reveals a regular rhythm, normal first and second heart sounds. No murmur, gallop, rub, or click. ABDOMEN: Soft. Bowel sounds present. No mass, organomegaly, tenderness, rebound, guarding, CVA tenderness, or palpable abdominal aortic aneurysm. EXTREMITIES: Reveal no cyanosis, clubbing, or edema. NEUROLOGIC: Awake, alert, and oriented. SKIN: Warm and dry. No rash or cellulitis. PSYCHIATRIC: Normal as to mood and affect. LABORATORY AND IMAGING: A chest x-ray is a portable study, it is not yet read. It is unremarkable to me with no infiltrate, effusion, or evidence of congestive heart failure. EKG demonstrates regular sinus rhythm with right bundle branch block, nonspecific ST-T wave changes, no change from her prior EKG. CBC is notable for hemoglobin of 11.2, hematocrit 34.6, platelet count normal, white blood cell count normal. PT, INR, PTT unremarkable. Electrolytes, BUN, creatinine unremarkable. Creatinine 1.5. Blood sugar 116. AST slightly elevated at 38, alkaline phosphatase normal, ALT normal, LDH normal. CK normal, troponin less than 0.01. BNP 485. IMPRESSION: Daniela Salazar is a 77-year-old woman admitted with chest pain with a feeling of fatigue and weakness, headache; most of which have resolved, although she still complains of fatigue and weakness this morning. Initial EKG is unchanged. First troponin is negative. I reviewed her old records. She will be admitted to telemetry. We will continue her usual medications. We will get serial EKGs and enzymes. She has received aspirin and clonidine. She will get insulin, hydrochlorothiazide, isosorbide, Lotrel, and metoprolol. She received a dose of nitro paste. She will be admitted to telemetry. We will monitor I's and O's. We will check stool for occult blood. She can be out of bed to chair. I will follow along with you. I will make additional recommendations based on her clinical course. Corbin Benson MD MTDMariza
[2017-11-28] MEDS ORDERED: Nitroglycerin 2% Ointment Foilpak UD TOP PRN (01:12)
--- NOTE | 2017-11-28 03:12 | CP.PCM.PN ---
Subjective - Date & Time of Evaluation Date of Evaluation: 11/28/17 Time of Evaluation: 01:00 - Subjective Subjective: pt is c/o cp precordial no associated symptoms. Objective - Vital Signs/Intake and Output Vital Signs (last 24 hours): Temp Pulse Resp BP Pulse Ox 98.4 F 69 20 156/88 H 100 11/28/17 00:00 11/28/17 02:45 11/28/17 00:00 11/28/17 02:45 11/28/17 00:00 Intake and Output: 11/27/17 11/28/17 18:59 06:59 Intake Total 540 Balance 540 - Medications Medications: Current Medications Acetaminophen (Tylenol 325mg Tab) 650 mg PO Q4H PRN PRN Reason: Headache Last Admin: 11/28/17 01:56 Dose: 650 mg Aspirin (Ecotrin) 81 mg PO DAILY [facility] Last Admin: 11/27/17 10:56 Dose: 81 mg Hydrochlorothiazide (Hydrodiuril) 25 mg PO DAILY [facility] Last Admin: 11/27/17 10:56 Dose: 25 mg Isosorbide Mononitrate (Imdur) 60 mg PO DAILY [facility] Last Admin: 11/27/17 10:56 Dose: 60 mg Metoprolol Succinate (Toprol Xl) 100 mg PO BRK [facility] Last Admin: 11/27/17 10:56 Dose: 100 mg Non-Formulary Medication (Lotrel 5-20 Mg Capsule) 1 tab PO DAILY [facility] Last Admin: 11/27/17 10:56 Dose: Not Given - Labs Labs: PT 10.5 SECONDS (9.4-12.5) 11/27/17 03:22 INR 0.91 (0.93-1.08) L 11/27/17 03:22 APTT 30.9 Seconds (25.1-36.5) 11/27/17 03:22 - Constitutional Appears: No Acute Distress - Head Exam Head Exam: NORMOCEPHALIC - Eye Exam Pupil Exam: PERRL - ENT Exam ENT Exam: Mucous Membranes Moist - Neck Exam Neck Exam: Full ROM - Respiratory Exam Respiratory Exam: Clear to Ausculation Bilateral - Cardiovascular Exam Cardiovascular Exam: RRR - Rectal Exam Rectal Exam: Deferred - Extremities Exam Extremities Exam: Full ROM - Neurological Exam Neurological Exam: Alert, CN II-XII Intact, Oriented x3 - Skin Skin Exam: Dry, Warm Assessment and Plan - Assessment and Plan (Free Text) Assessment: chest pain at rest. Plan: ekg stat. troponine x1 . nitros/l x1 . pt improved with nitro . started c/o head ache .was given tylenol hedache improved.
--- NOTE | 2017-11-28 07:37 | CP.PCM.PN ---
Subjective - Date & Time of Evaluation Date of Evaluation: 11/28/17 Time of Evaluation: 07:00 - Subjective Subjective: Stable on 3R. She had CP around 12:30 and was given NTG with relief. Now no CP or SOB but weak. V/S noted. RSR PE: Lungs: clear Cor.: S1S2 Abd.: soft Ext.: no edema Neuro.: alert Labs noted. Trops x2 neg Will check ECG. Objective - Vital Signs/Intake and Output Vital Signs (last 24 hours): Temp Pulse Resp BP Pulse Ox 98.4 F 61 20 156/88 H 100 11/28/17 00:00 11/28/17 06:00 11/28/17 00:00 11/28/17 02:45 11/28/17 00:00 Intake and Output: 11/28/17 11/28/17 06:59 18:59 Intake Total 540 Balance 540 - Medications Medications: Current Medications Acetaminophen (Tylenol 325mg Tab) 650 mg PO Q4H PRN PRN Reason: Headache Last Admin: 11/28/17 01:56 Dose: 650 mg Aspirin (Ecotrin) 81 mg PO DAILY [facility] Last Admin: 11/27/17 10:56 Dose: 81 mg Hydrochlorothiazide (Hydrodiuril) 25 mg PO DAILY [facility] Last Admin: 11/27/17 10:56 Dose: 25 mg Isosorbide Mononitrate (Imdur) 60 mg PO DAILY [facility] Last Admin: 11/27/17 10:56 Dose: 60 mg Metoprolol Succinate (Toprol Xl) 100 mg PO BRK [facility] Last Admin: 11/27/17 10:56 Dose: 100 mg Non-Formulary Medication (Lotrel 5-20 Mg Capsule) 1 tab PO DAILY [facility] Last Admin: 11/27/17 10:56 Dose: Not Given - Labs Labs: PT 10.5 SECONDS (9.4-12.5) 11/27/17 03:22 INR 0.91 (0.93-1.08) L 11/27/17 03:22 APTT 30.9 Seconds (25.1-36.5) 11/27/17 03:22 Assessment and Plan - Assessment and Plan (Free Text) Assessment: Chest Pain/Weakness/Fatigue CAD/Remote PCI/MO PCI RCA and C.A. 03/01 RBBB HBP Diabetes HLD CEA Plan: Check AM labs, ECG, trop Plan cardiac cath for tomorrow AM Increase Imdur to 60 BID Additional recs to follow cath.
[2017-11-28 08:50] LABS: CALCIUM 9.4 mg/dL (8.4-10.5)
[2017-11-28] MEDS: Insulin Human NPH/Reg 70/30 Vial(3 ml) SC SCH (09:27)
[2017-11-28] MEDS: Metoprolol Succinate 100 mg XL Tab PO SCH (09:36)
--- NOTE | 2017-11-28 10:36 | CARD ---
APPROVED REPORT EKG Measurement Heart [id number] <Conclusion> Normal sinus rhythm Possible Left atrial enlargement Right bundle branch block Inferior infarct, old No change
[2017-11-28] MEDS ORDERED: Dextrose 5%/0.45% NS 1,000 ML IV SCH (12:15)
[2017-11-28] MEDS ORDERED: Acetylcysteine 20% Inhal Soln (4ml) PO ONE ×2 (13:00→22:00)
[2017-11-28] MEDS: LOTREL PO SCH (17:08)
--- NOTE | 2017-11-29 04:21 | DS ---
HISTORY AND HOSPITAL COURSE: The patient is a 77-year-old female who came into the hospital complaining of chest pain. She had improvement of her chest pain. She was seen by Dr. Benson, he had ordered a second troponin for this morning, that is pending. The patient had an episode of chest pain again during the night. She was seen by the house doctor. Nitroglycerin was given, and the patient's chest pain improved. Second troponin done, is negative. The patient has no complaint of any chest pain at this point. No headaches or dizziness. PHYSICAL EXAMINATION: VITAL SIGNS: Temperature is 98.4, pulse of 80, blood pressure is 170/93, respirations 20, O2 saturation is 100%. GENERAL: The patient is lying in bed, flat, comfortable. HEENT: No oral lesion. Anicteric sclerae. Moist mucosa. NECK: No JVD, adenopathy, or thyromegaly. CARDIOVASCULAR: S1 and S2, regular. No murmurs, rubs, or gallops. LUNGS: Clear to auscultation bilaterally. No wheeze, rales, or rhonchi. ABDOMEN: Bowel sounds are positive, soft, nontender and nondistended. EXTREMITIES: no cyanosis, clubbing or edema. ASSESSMENT: 1. Chest pain. 2. Coronary artery disease with stent. 3. Hypertension. 4. Diabetes type 2. 5. Dyslipidemia. PLAN: The patient is currently comfortable. Is on aspirin, is going to continue with hydrochlorothiazide for hypertension, is on isosorbide. The patient is on metoprolol. She is going to continue with Tylenol as needed. Is on a carbohydrate-consistent diet. We will speak with Dr. Benson to see whether their intervention is needed or if the patient can go home. CONDITION: Stable. ACTIVITIES: Increase as tolerated. Jose Berkowitz MD
[2017-11-29] MEDS ORDERED: Acetylcysteine 20% Inhal Soln (4ml) PO ONE (06:00)
[2017-11-29 07:01] LABS: MEAN CELL VOLUME 86.4 fl (80.0-105.0); MEAN CORPUSCULAR HEMOGLOBIN 27.3 pg (25.0-35.0); MEAN CORPUSCULAR HGB CONC 31.6 g/dl (31.0-37.0); MEAN PLATELET VOLUME 11.3 fl (7.0-11.0); RBC 4.03 10^6/uL (3.5-6.1); RED CELL DISTRIBUTION WIDTH 14.6 % (11.5-14.5); WHITE BLOOD COUNT 6.5 10^3/ul (4.5-11.0)
[2017-11-29] MEDS ORDERED: Phenylephrine 10 mg/ml Inj ONE (07:03)
[2017-11-29] MEDS ORDERED: Lidocaine 2% Inj (20ml) ONE (07:03)
[2017-11-29] MEDS ORDERED: Iodixanol 320 MG/ML 100 ML BOTTLE IV ONE (07:04)
[2017-11-29] MEDS ORDERED: Iodixanol 320 MG/ML 200 ML BOTTLE IV ONE (07:04)
[2017-11-29] MEDS ORDERED: Iohexol 350mgl/ml 50 ML ONE (07:04)
[2017-11-29] MEDS ORDERED: HEPARIN SODIUM/NS 2,000 ML IV ONE (07:04)
[2017-11-29 07:14] LABS: ALB/GLOB RATIO 1.3 (1.1-1.8); CALCIUM 9.4 mg/dL (8.4-10.5)
[2017-11-29] MEDS ORDERED: Famotidine 20mg/50ml 20 MG/50 ML BAG IVPB ONE (07:30)
[2017-11-29] MEDS ORDERED: DiphenhydrAMINE 50 mg/ml Inj ONE (07:30)
[2017-11-29] MEDS: Insulin Human NPH/Reg 70/30 Vial(3 ml) SC SCH ×2 (07:33→17:44)
[2017-11-29] MEDS: Metoprolol Succinate 100 mg XL Tab PO SCH ×2 (07:34→12:48)
[2017-11-29] MEDS ORDERED: Midazolam 2 MG/2 ML VIAL ONE (07:45)
[2017-11-29] MEDS ORDERED: Sodium Chloride 0.9% 1,000 ML IV SCH (08:30)
--- NOTE | 2017-11-29 11:05 | PN ---
DATE: SUBJECTIVE: The patient has no headaches, no dizziness, no nausea, no vomiting. PHYSICAL EXAMINATION VITAL SIGNS: Temperature is 98.9, pulse of 77, blood pressure 158/90, respirations 20. GENERAL: The patient is lying in bed, flat, comfortable. HEENT: No oral lesion. Anicteric sclerae. Moist mucosa. NECK: No JVD, adenopathy, or thyromegaly. CARDIOVASCULAR: S1 and S2, regular. No murmurs, rubs, or gallops. LUNGS: Clear to auscultation bilaterally. No wheeze, rales, or rhonchi. ABDOMEN: Bowel sounds are positive. Soft, nontender and nondistended. EXTREMITIES: No cyanosis, clubbing or edema. ASSESSMENT 1. Chest pain. 2. Chronic kidney disease stage IV. 3. Hypertension. 4. Diabetes type 2. 5. Dyslipidemia. 6. Coronary artery disease with stent. PLAN: The patient is going to be admitted, is due for cardiac cath. She does understand that she has risk of worsening of her kidney disease given that she has CKD that is advanced because of the chest pain. I agree that given the risks, benefits and the history of coronary artery disease with stenting, she most likely will need another catheterization. We will need to try to minimize contrast use. The patient has been given Mucomyst and is on IV fluids. She is going to have her blood work rechecked after the procedure. The patient is on metoprolol. She is on Tylenol. We will await for the input from Cardiology regarding the patient's results. Jose Berkowitz MD
[2017-11-29] MEDS: LOTREL PO SCH (11:47)
--- NOTE | 2017-11-29 11:52 | PN ---
DATE: 11/29/2017 SUBJECTIVE: The patient is seen lying in bed. She had no chest pain overnight. She was given hydration and Mucomyst in preparation for cardiac catheterization today. Creatinine for this morning is 1.8. CURRENT MEDICATIONS: Include aspirin, hydrochlorothiazide, Imdur, Lipitor, Lotrel, Toprol-XL. OBJECTIVE: GENERAL: She is an elderly woman, appears somewhat anxious. VITAL SIGNS: Her blood pressure is 156/90 with a pulse of 76 and sinus respirations are 16. She is afebrile. HEENT: No JVD. CHEST: Clear to auscultation and percussion. HEART: PMI normal position. Soft systolic murmur is in the left sternal border. ABDOMEN: Soft, nontender. Normoactive bowel sounds. EXTREMITIES: No edema. DIAGNOSTIC DATA: Potassium 4.1, BUN and creatinine 42 and 1.8. Hemoglobin and hematocrit 11.2 and 34.8 with a white count 6.5, platelet count of 318,000. IMPRESSION: 1. Acute coronary syndrome, known multivessel coronary artery disease and percutaneous coronary intervention. 2. History of diabetes and hypertension. 3. Rest of problems as noted. RECOMMENDATIONS: The patient will undergo cardiac catheterization this morning with possible PCI if suitable anatomy is found. Further recommendations are based upon those results. IV hydration as initiated and attempts will be made to limit her dye volume exposure. We will follow as needed. Guido Negro MD
--- NOTE | 2017-11-29 15:28 | CARD ---
APPROVED REPORT EKG Measurement Heart [id number] <Conclusion> Normal sinus rhythm Possible Left atrial enlargement Right bundle branch block Inferior infarct, age undetermined
[2017-11-29] MEDS: Acetylcysteine 20% Inhal Soln (4ml) PO SCH (17:19)
--- NOTE | 2017-11-29 19:40 | CARDCATH ---
PROCEDURE DATE: 11/29/2017 PROCEDURES: 1. Selective left and right coronary angiography. 2. Left ventriculography. 3. Percutaneous coronary intervention of distal right coronary artery with drug-eluting stent. 4. Right femoral arteriography. 5. Angio-Seal deployment. HISTORY: This is a 77-year-old woman with known coronary artery disease and multivessel PCI in the past, recently admitted with progressive angina. Cardiac catheterization was recommended. INDICATIONS: As above. FINDINGS: HEMODYNAMICS: Aortic pressure was 160/80 with left ventricular pressure of 160/14. CORONARY ANATOMY: 1. Left mainstem was calcified, mild distal tapering. 2. Left anterior descending artery was moderately calcified in the proximal mid segment. The previously placed stents were patent. The more proximal stent had evidence of a 30% in-stent restenosis. The distal vessel had mild diffuse irregularities. The diagonal branches were fairly small with no significant disease. Faint collaterals were seen to a small branch of the RPDA. 3. The left circumflex artery had a patent stent in its mid portion. The first obtuse marginal branch had a 50% ostial stenosis. The second obtuse marginal branch had mild diffuse disease and the distal left circumflex artery had a 50% lesion distally. 4. The right coronary artery was dominant. The previously placed stents in the mid portion and distal vessel were patent. There was evidence of a 90% stenosis just beyond the most distal stent. The PDA and PLV branches had diffuse disease. LEFT VENTRICULOGRAPHY: A hand injection was performed in the left ventricle revealing normal wall motion and ejection fraction of 70%. Mitral regurgitation was not assessed. There was no aortic valve gradient seen on catheter pullback. CORONARY INTERVENTION: A 4000 units of intervenous heparin was administered and ACT was greater than 220 seconds during the procedure. A JR4 guide catheter was utilized and lesion in the RCA was successfully crossed with the use of a Surrency wire. Following this, the lesion was initially inflated with a 2.5 x 12-mm balloon. The balloon was then removed, and a 2.75 x 14-mm Resolute drug-eluting stent was advanced into the site of the lesion. This was inflated to 12 atmospheres for 45 seconds. Following this, the balloon was withdrawn slightly into the overlap segment of the new and previously placed stent and this was inflated to 14 atmospheres for 25 seconds. There was 0% residual stenosis following intervention. CIARA grade 3 flow is noted following the procedure. RIGHT FEMORAL ARTERIOGRAPHY: The right femoral arteriogram was performed in the HERNDON projection. This revealed evidence of [id number] diffuse atherosclerotic disease with no obstructive lesion at the site of the puncture site and the puncture site appeared to be at appropriate level. This was then closed with deployment of an AngioSeal device. CONCLUSION: 1. Patent LAD, LCX, and RCA stents with a new distal RCA lesion. 2. Successful PCI of distal RCA with Resolute drug-eluting stent as described above. 3. Normal LV systolic function. RECOMMENDATIONS: Given the above findings, the aspirin and Plavix therapy will be continued for one year. Continued risk factor control will be advised. Intensify the antihypertensive therapy and statin therapy will be recommended. Guido Negro MD MTDD
[2017-11-29 23:52] VITALS: RESP 20
[2017-11-30 06:11] VITALS: BP 119/79; TEMP 98.4; O2SAT 93
[2017-11-30 07:24] LABS: GRAN # 5.42 (1.4-6.5); GRAN % 77.5 % (50.0-68.0); HEMOGLOBIN 9.7 g/dL (12.0-16.0); LYMPH # 0.8 (1.2-3.4); LYMPH % 11.2 % (22.0-35.0); MEAN CELL VOLUME 85.2 fl (80.0-105.0); MEAN CORPUSCULAR HEMOGLOBIN 28.1 pg (25.0-35.0); MEAN PLATELET VOLUME 11.4 fl (7.0-11.0); MONO # 0.8 (0.1-0.6); MONO % 11.3 % (1.0-6.0); RBC 3.45 10^6/uL (3.5-6.1); RED CELL DISTRIBUTION WIDTH 14.8 % (11.5-14.5)
[2017-11-30 07:29] LABS: CALCIUM 9.3 mg/dL (8.4-10.5)
[2017-11-30] MEDS: Metoprolol Succinate 100 mg XL Tab PO SCH (08:13)
[2017-11-30] MEDS: Insulin Human NPH/Reg 70/30 Vial(3 ml) SC SCH (08:14)
[2017-11-30 08:16] VITALS: PULSE 100
--- NOTE | 2017-11-30 08:21 | CP.PCM.PN ---
Subjective - Date & Time of Evaluation Date of Evaluation: 11/30/17 Time of Evaluation: 07:00 - Subjective Subjective: Stable on 2R s/p RCA PCI with ANDREE yesterday. She feels much better. No CP or SOB. V/S noted. RSR PE: Lungs: clear Cor.: S1S2 Abd.: soft Ext.: no edema Neuro.: alert Labs noted. Cr.= 2.0, K+= 4.1 Cine/Cath Report noted. Case d/w Dr. Negro. Objective - Vital Signs/Intake and Output Vital Signs (last 24 hours): Temp Pulse Resp BP Pulse Ox 98.4 F 98 H 20 119/79 93 L 11/30/17 06:00 11/30/17 06:00 11/30/17 06:00 11/30/17 06:00 11/30/17 06:00 Intake and Output: 11/30/17 11/30/17 06:59 18:59 Intake Total 360 Output Total 450 Balance -90 - Medications Medications: Current Medications Acetaminophen (Tylenol 325mg Tab) 650 mg PO Q4H PRN PRN Reason: Headache Last Admin: 11/28/17 01:56 Dose: 650 mg Acetylcysteine (Acetylcysteine 20%) 3 ml PO BID [facility] Stop: 11/30/17 10:01 Last Admin: 11/29/17 17:19 Dose: 3 ml Aspirin (Ecotrin) 81 mg PO DAILY [facility] Last Admin: 11/29/17 10:50 Dose: Not Given Atorvastatin Calcium (Lipitor) 20 mg PO DIN [facility] Last Admin: 11/29/17 17:19 Dose: 20 mg Clopidogrel Bisulfate (Plavix) 75 mg PO DAILY [facility] Hydrochlorothiazide (Hydrodiuril) 25 mg PO DAILY [facility] Last Admin: 11/28/17 09:37 Dose: 25 mg Isosorbide Mononitrate (Imdur) 60 mg PO BID [facility] Last Admin: 11/29/17 17:19 Dose: 60 mg Metoprolol Succinate (Toprol Xl) 100 mg PO BRK [facility] Last Admin: 11/29/17 12:48 Dose: 100 mg Non-Formulary Medication (Lotrel 5-20 Mg Capsule) 1 tab PO DAILY [facility] Last Admin: 11/29/17 11:47 Dose: Not Given - Labs Labs: 11/30/17 06:40 11/30/17 06:40 PT 10.5 SECONDS (9.4-12.5) 11/27/17 03:22 INR 0.91 (0.93-1.08) L 11/27/17 03:22 APTT 30.9 Seconds (25.1-36.5) 11/27/17 03:22 Assessment and Plan - Assessment and Plan (Free Text) Assessment: Chest Pain/Weakness/Fatigue, improved PCI distal RCA with ANDREE 11/29/17 CAD/Remote PCI/RI PCI RCA and C.A. 03/01 Acute on chronic kidney disease. RBBB HBP Diabetes HLD CEA Plan: Plan D/C later today. I spoke with Dr. Berkowitz. Continue pre-hospital meds + Plavix 75/day. Out pt. F/U early next week with BMP.
[2017-11-30] MEDS: Acetylcysteine 20% Inhal Soln (4ml) PO SCH (09:22)
[2017-11-30] MEDS: LOTREL PO SCH (09:23)
--- NOTE | 2017-12-01 04:39 | DS ---
HISTORY OF PRESENT ILLNESS: The patient has no complaints of any chest pain, no shortness of breath, headache, or dizziness. She initially came to the hospital because of chest pain. The patient had a cardiac catheterization by Dr. Negro. There were patent stents that were seen. There was a new distal RCA lesion. There was a successful PCI of the distal RCA with a drug-eluting stent. The patient's LV was normal. She was going to be placed on Plavix. The patient states that she feels well. She has no complaints of headache, no dizziness, no nausea, no vomiting. PHYSICAL EXAMINATION: VITAL SIGNS: Temperature is 98.4, pulse of 98, blood pressure is 119/79, respirations 20, O2 saturation is 93%. GENERAL: The patient is lying in bed, flat, comfortable. HEENT: No oral lesion. Anicteric sclerae. Moist mucosa. NECK: No JVD, adenopathy, or thyromegaly. CARDIOVASCULAR: S1 and S2, regular. No murmurs, rubs, or gallops. LUNGS: Clear to auscultation bilaterally. No wheeze, rales, or rhonchi. ABDOMEN: Bowel sounds are positive, soft, nontender and nondistended. EXTREMITIES: No cyanosis, clubbing or edema. ASSESSMENT: 1. Chest pain secondary to coronary artery disease. 2. Status post percutaneous coronary intervention of distal right coronary artery with drug-eluting stent. 3. Chronic kidney disease stage IV. 4. Hypertension. 5. Diabetes type 2. 6. Dyslipidemia. 7. Diabetic nephropathy. PLAN: The patient is currently comfortable. She is going to continue with her aspirin. She is on isosorbide for chest pain. She is receiving Lipitor for dyslipidemia. She is receiving Plavix for her stent. She is on metoprolol for her coronary artery disease. She is on a carbohydrate-consistent diet. She has blood work that is pending. If her creatinine is stable, we will most likely discharge to the patient home. She has followed up with Dr. Negro as an outpatient. CONDITION: Stable. ACTIVITIES: Increase as tolerated. Jose Berkowitz MD [facility] # [id number]
== END 2017-11-30 10:06 | disposition home or self-care (01) | DRG 247 ==
LOC: ED 02:52 → ERH 06:01 → OBSVTOIN 07:53 → ERH 08:09 → 3RNO 09:03 → 2RSO 11-29 08:36
PROVIDERS: ADMIT Internal Medicine Nephrology; ATTEND Internal Medicine Nephrology
PROC: 027034Z Dilation of Coronary Artery, One Artery with Drug-eluting Intraluminal Device, Percutaneous Approach (ICD-10-PCS; principal; 2017-11-29)
PROC: 4A023N7 Measurement of Cardiac Sampling and Pressure, Left Heart, Percutaneous Approach (ICD-10-PCS; 2017-11-29)
PROC: B211YZZ Fluoroscopy of Multiple Coronary Arteries using Other Contrast (ICD-10-PCS; 2017-11-29)
PROC: B215YZZ Fluoroscopy of Left Heart using Other Contrast (ICD-10-PCS; 2017-11-29)
DX: I25.110 Atherosclerotic heart disease of native coronary artery with unstable angina pectoris (principal); E11.21 Type 2 diabetes mellitus with diabetic nephropathy; N18.4 Chronic kidney disease, stage 4 (severe); I45.10 Unspecified right bundle-branch block; E11.22 Type 2 diabetes mellitus with diabetic chronic kidney disease; E78.5 Hyperlipidemia, unspecified; I12.9 Hypertensive chronic kidney disease with stage 1 through stage 4 chronic kidney disease, or unspecified chronic kidney disease; I25.2 Old myocardial infarction; Z79.02 Long term (current) use of antithrombotics/antiplatelets; Z79.82 Long term (current) use of aspirin; Z95.5 Presence of coronary angioplasty implant and graft; Z90.710 Acquired absence of both cervix and uterus

== ENCOUNTER 2017-12-11 21:52 | Observation (INO) | payer MEDICARE, BC ==
[2017-12-11 22:04] VITALS: BMI 21.7
--- NOTE | 2017-12-11 22:42 | ED PDOC ---
Arrival/HPI - General Chief Complaint: Chest Pain Time Seen by Provider: 12/11/17 22:12 Historian: Patient - History of Present Illness Narrative History of Present Illness (Text): 12/11/17 22:42 77 year old female, whose past medical history includes CAD s/p recent cardiac stent placement, diabetes, RCA, hypertension, and dislipidemia, with complaints of recurrent chest pain radiating to the back. Patient was given aspirin prior to arrival. Patient reports the discomfort radiating to the right side of chest. Patient denies any fever, chills, shortness of breath, nausea, vomiting, diarrhea, urinary symptoms, neck pain, headache, dizziness, or any other complaints. Symptom Onset: Sudden Symptom Course: Unchanged Activities at Onset: Light Context: Home Past Medical History - Provider Review Nursing Documentation Reviewed: Yes - Infectious Disease Hx of Infectious Diseases: None - Tetanus Immunization Tetanus Immunization: >10 years Ago - Cardiac Hx Cardiac Disorders: Yes Hx Hypertension: Yes - Pulmonary Hx Respiratory Disorders: No - Neurological Hx Dizziness: Yes - HEENT Hx HEENT Disorder: No - Renal Hx Renal Disorder: No - Endocrine/Metabolic Hx Diabetes Mellitus Type 2: Yes - Hematological/Oncological Hx Blood Disorders: No - Integumentary Hx Dermatological Disorder: No Other/Comment: old scars on knees from scrapes as a child - Musculoskeletal/Rheumatological Hx Arthritis: Yes - Gastrointestinal Hx Gastrointestinal Disorders: No - Genitourinary/Gynecological Hx Genitourinary Disorders: Yes - Psychiatric Hx Psychophysiologic Disorder: No Hx Substance Use: No - Past Surgical History Past Surgical History: No Previous - Surgical History Hx Cardiac Catheterization: Yes Hx Coronary Stent: Yes (x3) Hx Hysterectomy: Yes - Anesthesia Hx Anesthesia: Yes - Suicidal Assessment Feels Threatened In Home Enviroment: No Family/Social History - Physician Review Nursing Documentation Reviewed: Yes Family/Social History: No Known Family HX Smoking Status: Never Smoked Hx Alcohol Use: No Hx Substance Use: No Hx Substance Use Treatment: No Allergies/Home Meds Allergies/Adverse Reactions: Allergies No Known Allergies Allergy (Verified 12/11/17 22:04) Home Medications: Home Meds Medication Instructions Recorded Confirmed Isosorbide Mononitrate [Imdur] 60 mg PO DAILY 01/24/17 11/30/17 Metoprolol Succinate 100 mg PO DAILY 01/24/17 11/30/17 hydroCHLOROthiazide [Hydrodiuril] 25 mg PO DAILY 01/24/17 11/27/17 Aspirin [Ecotrin] 81 mg PO DAILY 01/28/17 11/30/17 Lotrel 5-20 mg Capsule 1 tab PO DAILY 03/04/17 11/27/17 Insulin Human NPH/Reg [HumuLIN 20 unit SQ BID 11/27/17 11/30/17 70/30 (NPH/Reg)] Clopidogrel [Plavix] 75 mg PO DAILY 11/30/17 11/30/17 Review of Systems - Physician Review All systems were reviewed & negative as marked: Yes - Review of Systems Constitutional: absent: Fevers, Other (Chills) Respiratory: absent: SOB, Cough Cardiovascular: Chest Pain Gastrointestinal: absent: Diarrhea, Nausea, Vomiting Genitourinary Female: absent: Dysuria, Frequency, Hematuria Musculoskeletal: Back Pain. absent: Neck Pain Neurological: absent: Headache, Dizziness Physical Exam Vital Signs Reviewed: Yes Vital Signs Temp Pulse Pulse Resp BP Pulse Ox 12/11/17 23:22 98.0 F 76 18 146/77 100 12/11/17 22:00 88 Temperature: Afebrile Blood Pressure: Normal Pulse: Regular Respiratory Rate: Normal Appearance: Positive for: Well-Appearing, Non-Toxic, Comfortable Pain Distress: None Mental Status: Positive for: Alert and Oriented X 3 - Systems Exam Head: Present: Atraumatic, Normocephalic Pupils: Present: PERRL Extroacular Muscles: Present: EOMI Conjunctiva: Present: Normal Mouth: Present: Moist Mucous Membranes Neck: Present: Normal Range of Motion Respiratory/Chest: Present: Clear to Auscultation, Good Air Exchange. No: Respiratory Distress, Accessory Muscle Use Cardiovascular: Present: Regular Rate and Rhythm, Normal S1, S2. No: Murmurs Abdomen: Present: Normal Bowel Sounds. No: Tenderness, Distention, Peritoneal Signs Back: Present: Normal Inspection Upper Extremity: Present: Normal Inspection. No: Cyanosis, Edema Lower Extremity: Present: Normal Inspection. No: Edema Neurological: Present: GCS=15, CN II-XII Intact, Speech Normal Skin: Present: Warm, Dry, Normal Color. No: Rashes Psychiatric: Present: Alert, Oriented x 3, Normal Insight, Normal Concentration Medical Decision Making ED Course and Treatment: 12/11/17 22:42 Impression: 77 year old female presents complaining of right sided chest pain radiating to the back. Plan: -- EKG -- Labs -- Chest X-ray -- Urinalysis -- Reassess and disposition Prior Visits: Notes and results from previous visits were reviewed. Patient was last seen in the emergency department on 11/27/17 complaining of chest pain. Patient was admitted Progress Notes: EKG shows NSR at 89 BPM with RBBB. inferior infarct, Nonspecific ST/T changes. Interpreted by me. 12/12/17 01:01 CXR Impression: As read by me, no acute processes. 12/12/17 01:[address] Berkowitz who is aware and agrees with the plan. Accepts patient into his service with consult Dr. Benson. - Lab Interpretations Lab Results: 12/11/17 22:55 12/11/17 22:55 Lab Results 12/11/17 23:29: Urine Color Straw, Urine Appearance Clear, Urine pH 6.0, Ur Specific [place] 1.010, Urine Protein 100 H, Urine Glucose (UA) Negative, Urine Ketones Negative, Urine Blood Negative, Urine Nitrate Negative, Urine Bilirubin Negative, Urine Urobilinogen 0.2, Ur Leukocyte Esterase Negative, Urine RBC 0 - 2, Urine WBC 0 - 2, Ur Epithelial Cells 3 - 4 12/11/17 22:55: WBC 7.0, RBC 3.76, Hgb 10.5 L, Hct 32.7 L, MCV 87.0, MCH 27.9, MCHC 32.1, RDW 14.4, Plt Count 293, MPV 11.0 12/11/17 22:55: Sodium 141, Potassium 4.9, Chloride 106, Carbon Dioxide 25, Anion Gap 15, BUN 48 H, Creatinine 1.8 H, Est GFR ( Amer) 33, Est GFR ( Non-Af Amer) 27, Random Glucose 201 H, Calcium 9.5, Total Bilirubin 0.3, AST 24 , ALT 26, Alkaline Phosphatase 74, Lactate Dehydrogenase 484, Total Creatine Kinase 64, Troponin I < 0.01, Total Protein 7.0, Albumin 3.8, Globulin 3.2, Albumin/Globulin Ratio 1.2 12/11/17 22:55: PT 10.9, INR 0.96, APTT 29.4 I have reviewed the lab results: Yes - RAD Interpretation Radiology Orders: 12/11/17 22:27 CHEST PORTABLE [RAD] Stat - EKG Interpretation Interpreted by ED Physician: Yes Type: 12 lead EKG - Scribe Statement The provider has reviewed the documentation as recorded by the Jose Albertoibliz Amaya Provider Scribe Attestation: All medical record entries made by the Scribe were at my direction and personally dictated by me. I have reviewed the chart and agree that the record accurately reflects my personal performance of the history, physical exam, medical decision making, and the department course for this patient. I have also personally directed, reviewed, and agree with the discharge instructions and disposition. Disposition/Present on Arrival - Present on Arrival Any Indicators Present on Arrival: No History of DVT/PE: No History of Uncontrolled Diabetes: No Urinary Catheter: No History of Decub. Ulcer: No History Surgical Site Infection Following: None - Disposition Have Diagnosis and Disposition been Completed?: Yes Diagnosis: Chest pain Disposition: HOSPITALIZED Disposition Time: 01:07 Patient Plan: Observation Patient Problems: Current Active Problems Problem Status Onset Chest pain Acute Condition: STABLE Discharge Instructions (ExitCare): Chest Pain (ED) Referrals: Arsenio Guo, [Primary Care Provider] - Follow up with primary Forms: [employer] (Khmer)
[2017-12-11 23:11] LABS: HEMOGLOBIN 10.5 g/dL (12.0-16.0); MEAN CORPUSCULAR HEMOGLOBIN 27.9 pg (25.0-35.0); MEAN CORPUSCULAR HGB CONC 32.1 g/dl (31.0-37.0); RBC 3.76 10^6/uL (3.5-6.1); RED CELL DISTRIBUTION WIDTH 14.4 % (11.5-14.5)
[2017-12-11 23:15] LABS: ALB/GLOB RATIO 1.2 (1.1-1.8); ALBUMIN 3.8 g/dL (3.0-4.8); ALT/SGPT 26 U/L (7-56); AST/SGOT 24 U/L (14-36); BLOOD UREA NITROGEN 48 mg/dL (7-21); CALCIUM 9.5 mg/dL (8.4-10.5); GFR AFRICAN-AMERICAN 33; GFR NON-AFRICAN AMERICAN 27
[2017-12-11 23:17] LABS: INR 0.96 (0.93-1.08); PROTHROMBIN TIME 10.9 SECONDS (9.4-12.5)
[2017-12-11 23:18] LABS: PARTIAL THROMBOPLASTIN TIME 29.4 Seconds (25.1-36.5)
[2017-12-11 23:21] LABS: TROPONIN I < 0.01 ng/mL
[2017-12-11 23:52] LABS: URINE BILIRUBIN NEGATIVE (NEGATIVE); URINE BLOOD NEGATIVE (NEGATIVE); URINE GLUCOSE (UA) NEGATIVE (NEGATIVE); URINE LEUKOCYTE ESTERASE NEGATIVE Leu/uL (NEGATIVE); URINE NITRATE NEGATIVE (NEGATIVE); URINE PROTEIN 100 mg/dL (<30 mg/dL); URINE UROBILINOGEN 0.2 E.U./dL (<1 E.U./dL)
[2017-12-11 23:54] LABS: URINE APPEARANCE CLEAR (CLEAR); URINE COLOR STRAW (YELLOW)
[2017-12-12 00:11] LABS: URINE RBC 0 - 2 /hpf (0-2); URINE WBC 0 - 2 /hpf (0-6)
[2017-12-12] MEDS ORDERED: Sodium Chloride 0.9% 1,000 ML IV STA (01:08)
[2017-12-12 01:55] VITALS: O2SAT 99
[2017-12-12] MEDS ORDERED: Metoprolol Succinate 100 mg XL Tab PO STA (06:20)
--- NOTE | 2017-12-12 06:20 | CP.PCM.PN ---
Subjective - Date & Time of Evaluation Date of Evaluation: 12/12/17 Time of Evaluation: 06:19 - Subjective Subjective: draft bp-172/96. seen at bedside. on hctz 25 po daily and metoprolol succ 100 mg po daily at home. Rx, give both now Objective - Vital Signs/Intake and Output Vital Signs (last 24 hours): Temp Pulse Resp BP Pulse Ox 98.6 F 78 20 172/96 H 99 12/12/17 06:00 12/12/17 06:00 12/12/17 06:00 12/12/17 06:00 12/12/17 06:00 - Medications Medications: Current Medications Sodium Chloride (Sodium Chloride 0.9%) 1,000 mls @ 100 mls/hr IV .Q10H STA Stop: 12/12/17 11:07 Last Admin: 12/12/17 02:24 Dose: 100 mls/hr - Labs Labs: PT 10.9 SECONDS (9.4-12.5) 12/11/17 22:55 INR 0.96 (0.93-1.08) 12/11/17 22:55 APTT 29.4 Seconds (25.1-36.5) 12/11/17 22:55
[2017-12-12] MEDS: Insulin Reg-LOW-Coverage SC SCH ×2 (08:43→11:49)
--- NOTE | 2017-12-12 09:00 | RAD ---
HISTORY: pain COMPARISON: 11/27/2017 FINDINGS: LUNGS: No active pulmonary disease. PLEURA: No significant pleural effusion identified, no pneumothorax apparent. CARDIOVASCULAR: Normal. OSSEOUS STRUCTURES: No significant abnormalities. VISUALIZED UPPER ABDOMEN: Normal. OTHER FINDINGS: None. IMPRESSION: No active disease.
[2017-12-12] MEDS ORDERED: Insulin Human NPH/Reg 70/30 Vial(3 ml) SC SCH (10:00)
[2017-12-12] MEDS ORDERED: Metoprolol Succinate 100 mg XL Tab PO SCH (10:00)
--- NOTE | 2017-12-12 12:33 | CARD ---
APPROVED REPORT EKG Measurement Heart [id number] <Conclusion> Poor data quality, interpretation may be adversely affected Normal sinus rhythm Right bundle branch block Inferior infarct, age undetermined Abnormal ECG
[2017-12-12 12:50] VITALS: BP 131/79; RESP 18; TEMP 99.2
[2017-12-12 15:28] VITALS: PULSE 71
--- NOTE | 2017-12-12 18:02 | HP ---
CHIEF COMPLAINT AND HISTORY OF PRESENT ILLNESS: This is a 77-year-old female who is coming in to the emergency room with a past medical history of coronary artery disease with stent placement recently, hypertension, dyslipidemia, complaining of back pain. The patient states that she was having more leg pain and says she is unsteady on her feet. She denies any chest pain or shortness of breath. No nausea, no vomiting. No fever, headache, or chills. She has no abdominal pain. No dysuria, frequency, or nocturia. She states the pain sometimes gets worse when she is trying to walk, but mostly goes up into the thighs; does not go down to the legs. REVIEW OF SYSTEMS: All other review of symptoms are within normal limits except what is mentioned. ALLERGIES: NO KNOWN DRUG ALLERGIES. HOME MEDICATIONS: Isosorbide, metoprolol, hydrochlorothiazide, aspirin, Lotrel, insulin NPH 70/30 of 20 units b.i.d., Plavix. PAST MEDICAL HISTORY: 1. Coronary artery disease with stent. 2. Hypertension. 3. Diabetes type 2. 4. Dyslipidemia. 5. CKD, stage IV. 6. Diabetic nephropathy. SOCIAL HISTORY: She does not smoke or drink. She is a . Lives alone. FAMILY HISTORY: Noncontributory. PHYSICAL EXAMINATION: VITAL SIGNS: She has a temperature of 98.6, pulse of 78, blood pressure 172/96, respiration is 20, O2 saturation is 99%. GENERAL: The patient lying in bed, uncomfortable, and in no acute distress. HEENT: Atraumatic and normocephalic. Anicteric sclerae. Moist mucosa. [place] conjunctivae. No oral lesions. NECK: No JVD, anterior and posterior adenopathy, thyromegaly, or bruits. CARDIOVASCULAR: S1 and S2 regular. No murmur, rubs, or gallop. LUNGS: Clear to auscultation bilaterally. No wheezes, rales, or rhonchi. ABDOMEN: Bowel sounds are positive. Soft, nontender and nondistended. No hepatosplenomegaly. No rebound and no guarding. EXTREMITIES: No cyanosis, clubbing, or edema. NEUROLOGIC: No facial asymmetry. Tongue is midline. No uvula deviation. Power is 5/5 upper extremity and lower extremity. Sensation intact in upper extremity and lower extremity. PSYCHIATRIC: She is awake, alert and oriented x3. No anxiety or depression. She has normal affect. GENITOURINARY: No CVA tenderness. VASCULAR: 2+ pulses in the carotid pulses and pedal pulses. SKIN: No erythema or nodules SPINE: Shows normal curvature. LABORATORY DATA: Chest x-ray done shows no infiltrates. Her EKG shows sinus rhythm at 89, nonspecific ST changes. ASSESSMENT: 1. Back pain. 2. Coronary artery disease with stent. 3. Chronic kidney disease, stage IV. 4. Hypertension. 5. Diabetes type 2. 6. Dyslipidemia. 7. Diabetic nephropathy. PLAN: The patient is currently comfortable. She is brought in as an observation. Most likely, her back pain is musculoskeletal in origin. I will get LS spine x-ray. The patient is going to be on hydrochlorothiazide for hypertension. She is on Imdur. She is going to continue using the Plavix for her stent; this will be continued as well. She is on metoprolol for her heart disease. I will continue that. I have asked Dr. Benson to evaluate the patient. The patient has troponin that has been ordered and is pending. Her sugars are controlled; I placed her on a insulin sliding scale. I will get Physical Therapy to evaluate the patient. Jose Berkowitz MD
--- NOTE | 2017-12-12 18:49 | CON ---
DATE: 12/12/2017 INDICATIONS: Weak legs, back pain, questionable chest pain, history of recent coronary intervention. HISTORY OF PRESENT ILLNESS: This is a 77-year-old woman, well known to our practice, admitted yesterday through the emergency room when she complained of weak legs, dizziness, right flank discomfort, and possibly chest pain. This morning, however, she denies that there was any chest pain. Her symptoms are not similar to her symptoms when she came in recently and underwent a right coronary intervention for a distal right coronary lesion. She has been taking her aspirin and Plavix and had felt well until yesterday when her weak legs and flank pain started. There was no shortness of breath, orthopnea, PND, syncope, vertigo, palpitation, edema, claudication. She did state that the legs were weak and numb. There was no fever, chills, cough, sputum production, hemoptysis. No abdominal pain, nausea, vomiting, diarrhea, constipation, melena. PAST MEDICAL HISTORY: Notable for coronary artery disease with remote myocardial infarction and remote coronary interventions with stents in the LAD, circumflex artery, and right coronary artery. Recently, she was admitted several weeks ago with diffuse symptoms. The troponin was elevated. She underwent cardiac catheterization with a successful PCI of the distal right coronary artery with a drug-eluting stent. At that time, a normal LV function was noted and patent stents were noted in the LAD, circumflex, and proximal RCA. She has a chronic right-bundle branch block, a history of hypertension, chronic kidney disease, diabetes, hyperlipidemia, carotid endarterectomy, and hysterectomy. There is no history of congestive heart failure, stroke, TIA, gout. MEDICATIONS: At the time of admission include Imdur, metoprolol, hydrochlorothiazide, aspirin, Plavix, insulin, and Lotrel. ALLERGIES: THERE WERE NO MEDICATION ALLERGIES REPORTED. SOCIAL HISTORY: She is . She is ambulatory. She lives at home. She does not smoke. She does not drink alcohol. FAMILY HISTORY: Noncontributory. REVIEW OF SYSTEMS: Ten-point review of systems is otherwise unremarkable except as noted above. PHYSICAL EXAMINATION: GENERAL: She is a well-developed, elderly woman, lying in bed on telemetry, in no acute distress. VITAL SIGNS: Are notable for sinus rhythm at 77 beats per minute. She is afebrile. Blood pressure 156/78, respirations 18, O2 sat 99% on room air. HEENT: Reveals no neck vein distention, thyromegaly, or carotid bruits. Mucous membranes are moist. Conjunctivae are pink. NECK: Supple. LUNGS: Lung mclaughlin clear. HEART: Examination of the heart reveals normal first and second heart sounds. There is a soft systolic murmur along the left sternal border. PMI not palpable. ABDOMEN: Soft, bowel sounds present. No mass, organomegaly, tenderness, rebound, guarding. No CVA tenderness. No palpable abdominal aortic aneurysm. EXTREMITIES: Reveal no cyanosis, clubbing, or edema. NEUROLOGIC: She was awake, alert, oriented, and intact. PSYCHIATRIC: Normal as to mood and affect. SKIN: Warm and dry. No rash or cellulitis. LABORATORY AND IMAGING: A portable chest x-ray is not read yet. It shows clear lung mclaughlin. No infiltrate or effusion by my reading. EKG is not available, but apparently, it showed chronic right bundle branch block and old inferior wall myocardial infarction with regular sinus rhythm. I will track it down. I will repeat an EKG this morning. White count normal. Platelet count normal. Hemoglobin 10.5, hematocrit 32.7. PT, INR, PTT unremarkable. Electrolytes unremarkable. BUN 48, creatinine 1.8. Blood sugars are noted. LFTs unremarkable. CK normal, two troponins normal. Urinalysis unremarkable. IMPRESSION: Daniela Salazar is a 77-year-old woman who presents with leg weakness, numbness, flank discomfort, possible chest pain, but symptoms are unlike recent symptoms which prompted earlier admission this month with a distal right lesion and coronary intervention at that time. I will repeat her EKG this morning. I will continue her usual medications including aspirin and Plavix. I would culture her urine. She should have a neurologic evaluation. She is a bit hypertensive. I would give her, her usual medications and titrate as necessary if her blood pressure remains elevated. I will continue metoprolol, Plavix, isosorbide, hydrochlorothiazide, aspirin, metoprolol. She can be out of bed. She can ambulate with assistance. Physical therapy would be appropriate. I will follow along with you. I will make additional recommendations based on her clinical course. I reviewed her records from her prior hospitalization. Corbin Benson MD [facility] # [id number] MARIANO
== END 2017-12-12 14:30 | disposition home or self-care (01) ==
LOC: ED 21:52 → ERH 12-12 01:07 → 3RSO 12-12 02:04
PROVIDERS: ADMIT Internal Medicine Nephrology; ATTEND Internal Medicine Nephrology
DX: R07.89 Other chest pain (principal); E11.21 Type 2 diabetes mellitus with diabetic nephropathy; E11.22 Type 2 diabetes mellitus with diabetic chronic kidney disease; E78.5 Hyperlipidemia, unspecified; I12.9 Hypertensive chronic kidney disease with stage 1 through stage 4 chronic kidney disease, or unspecified chronic kidney disease; I25.10 Atherosclerotic heart disease of native coronary artery without angina pectoris; I25.2 Old myocardial infarction; N18.4 Chronic kidney disease, stage 4 (severe); Z79.02 Long term (current) use of antithrombotics/antiplatelets; Z79.4 Long term (current) use of insulin; Z79.82 Long term (current) use of aspirin; Z90.710 Acquired absence of both cervix and uterus; Z95.5 Presence of coronary angioplasty implant and graft
CPT/HCPCS: 36415; 71045; 80053; 81001; 82550; 82948; 83615; 84484; 85027; 85610; 85730; 93005; 97116; 97162; 99285; G0378; G8978; G8979; G8980; J7040

== ENCOUNTER 2018-02-02 18:09 | Observation (INO) | payer MEDICARE, BC ==
[2018-02-02 18:18] VITALS: BMI 25.9
--- NOTE | 2018-02-02 18:52 | ED PDOC ---
Arrival/HPI - General Chief Complaint: Chest Pain Time Seen by Provider: 02/02/18 18:14 Historian: Patient - History of Present Illness Narrative History of Present Illness (Text): you were treated in the ED today for hx of htn, heart disease with stents, diabetes, cholesterol, kidney disease, heart cath 11/29/17 wtih patent LAD/Lcx/ RCA stents wtih new distal RCA lesion with stent placed, now with generalized chest pain and difficulty breathing with white sputum cough and given x3 doses of aspirin and otherwise without any nausea/vomiting/headache/dizziness/abdomen pain/numbness/tingling/loss of limb function/pain with urination. 02/02/18 18:48 Time/Duration: 1-3 hours Symptom Onset: Gradual Symptom Course: Improving Quality: Aching Activities at Onset: Rest Context: Sitting Past Medical History - Provider Review Nursing Documentation Reviewed: Yes - Travel History Have you recently traveled outside [place] w/in the past 3 mons?: No - Infectious Disease Hx of Infectious Diseases: None - Tetanus Immunization Tetanus Immunization: >10 years Ago - Cardiac Hx Cardiac Disorders: Yes Hx Hypertension: Yes - Pulmonary Hx Respiratory Disorders: No - Neurological Hx Dizziness: Yes - HEENT Hx HEENT Disorder: No - Renal Hx Renal Disorder: No - Endocrine/Metabolic Hx Diabetes Mellitus Type 2: Yes - Hematological/Oncological Hx Blood Disorders: No - Integumentary Hx Dermatological Disorder: No Other/Comment: old scars on knees from scrapes as a child - Musculoskeletal/Rheumatological Hx Falls: No - Gastrointestinal Hx Gastrointestinal Disorders: No - Genitourinary/Gynecological Hx Genitourinary Disorders: Yes - Psychiatric Hx Psychophysiologic Disorder: No Hx Substance Use: No - Past Surgical History Past Surgical History: No Previous - Surgical History Hx Coronary Stent: Yes - Anesthesia Hx Anesthesia: Yes - Suicidal Assessment Feels Threatened In Home Enviroment: No Family/Social History - Physician Review Nursing Documentation Reviewed: Yes Family/Social History: No Known Family HX Smoking Status: Never Smoked Hx Alcohol Use: No Hx Substance Use: No Hx Substance Use Treatment: No Allergies/Home Meds Allergies/Adverse Reactions: Allergies No Known Allergies Allergy (Verified 02/02/18 18:19) Home Medications: Home Meds Medication Instructions Recorded Confirmed Isosorbide Mononitrate [Imdur] 60 mg PO DAILY 01/24/17 12/12/17 Metoprolol Succinate 100 mg PO DAILY 01/24/17 12/12/17 hydroCHLOROthiazide [Hydrodiuril] 25 mg PO DAILY 01/24/17 12/12/17 Aspirin [Ecotrin] 81 mg PO DAILY 01/28/17 12/12/17 Lotrel 5-20 mg Capsule 1 tab PO DAILY 03/04/17 12/12/17 Insulin Human NPH/Reg [HumuLIN 20 unit SQ BID 11/27/17 12/12/17 70/30 (NPH/Reg)] Clopidogrel [Plavix] 75 mg PO DAILY 11/30/17 12/12/17 Review of Systems - Review of Systems Constitutional: Normal Eyes: Normal ENT: Normal Respiratory: SOB, Cough Cardiovascular: Chest Pain Gastrointestinal: Normal Genitourinary Female: Normal Musculoskeletal: Normal Skin: Normal Neurological: Normal Endocrine: Normal Hemo/Lymphatic: Normal Psychiatric: Normal Physical Exam Vital Signs Reviewed: Yes Vital Signs Temp Pulse Pulse Resp BP Pulse Ox 02/02/18 18:30 87 02/02/18 18:29 97.5 F L 71 20 157/95 H 100 Temperature: Afebrile Blood Pressure: Hypertensive Pulse: Regular Respiratory Rate: Normal Appearance: Positive for: Well-Appearing, Non-Toxic, Comfortable Pain Distress: None Mental Status: Positive for: Alert and Oriented X 3 - Systems Exam Head: Present: Atraumatic, Normocephalic Pupils: Present: PERRL Extroacular Muscles: Present: EOMI Conjunctiva: Present: Normal Ears: Present: Normal Mouth: Present: Moist Mucous Membranes Pharnyx: Present: Normal Nose (External): Present: Atraumatic Nose (Internal): Present: Normal Inspection Neck: Present: Normal Range of Motion Respiratory/Chest: Present: Clear to Auscultation, Good Air Exchange Cardiovascular: Present: Regular Rate and Rhythm Abdomen: No: Tenderness, Distention, Normal Bowel Sounds, Peritoneal Signs, Rebound, Guarding, McBurney's Point Tender, Rovsing's Sign Present, Hernias, Feeding Tubes, Ostomy Tubes, Mass/Organomegaly, Scars, Other Back: Present: Normal Inspection Upper Extremity: Present: Normal Inspection Lower Extremity: Present: Normal Inspection Neurological: Present: GCS=15, CN II-XII Intact, Speech Normal, Motor Func Grossly Intact Skin: Present: Warm, Normal Color Psychiatric: Present: Alert, Oriented x 3, Normal Insight, Normal Concentration Medical Decision Making ED Course and Treatment: you were treated in the ED today for hx of htn, heart disease with stents, diabetes, cholesterol, kidney disease, heart cath 11/29/17 wtih patent LAD/Lcx/ RCA stents wtih new distal RCA lesion with stent placed, now with generalized chest pain and difficulty breathing with white sputum cough and given x3 doses of aspirin and otherwise without any nausea/vomiting/headache/dizziness/abdomen pain/numbness/tingling/loss of limb function/pain with urination/travel/prior blood clots/cancer hx. You were otherwise breathing easily, pink moist lips, talking easily, good strength/sensation, alert/oriented, walking easily, clear lungs, no abdomen tenderness, no fever temp 97.5, stable heart rate 71, stable breathing rate 20, excellent oxygen level 100% room air, elevated blood pressure 157/95 which we recommend repeat in 2-3 days primary care office to determine further treatment, you have blood tests no infection count 6, stable blood level hemoglobin 10/platelets 256, stable chemistry, creatinine 1.6 similar to prior, glucose 164 elevated, heart blood test negative less than 0.01 , lactic acid negative 0.9, influenza negative, urine test pending, chest xray radiology no acute, ECG sinus rhythm with premature ventricular complexes, morphine, zofran, observation done in the ED with improvement. d/w Dr. Berkowitz who will admit for observation, consult Dr. Benson 02/02/18 21:02 02/02/18 21:19 02/02/18 21:22 Reassessment Condition: Re-examined, Improved - Lab Interpretations Lab Results: 02/02/18 19:06 02/02/18 19:06 Lab Results 02/02/18 19:06: Influenza Typ A,B (EIA) Negative for flu a/b 02/02/18 19:06: pO2 54, VBG pH 7.36, VBG pCO2 48.0, VBG HCO3 27.1, VBG Total CO2 28.6 H, VBG O2 Sat (Calc) 92.9 H, VBG Base Excess 1.0, VBG Potassium 4.3, Sodium 138.0, Chloride 106.0, Glucose 172 H, Lactate 0.9, FiO2 21.0, Venous Blood Potassium 4.3 02/02/18 19:06: PT 11.2, INR 0.98, APTT 28.7 02/02/18 19:06: Sodium 139, Chloride 105, Potassium 4.4, Carbon Dioxide 26, Anion Gap 13, BUN 47 H, Creatinine 1.6 H, Est GFR ( Amer) 38, Est GFR ( Non-Af Amer) 31, Random Glucose 163 H, Calcium 8.9, Magnesium 2.4 H, Total Bilirubin 0.4, AST 25, ALT 31, Alkaline Phosphatase 67, Lactate Dehydrogenase 592, Total Creatine Kinase 128, Troponin I < 0.01 D, NT-Pro-B Natriuret Pep 535 H, Total Protein 6.9, Albumin 3.9, Globulin 3.0, Albumin/Globulin Ratio 1.3 02/02/18 19:06: WBC 6.4, RBC 3.89, Hgb 10.8 L, Hct 33.2 L, MCV 85.3, MCH 27.8, MCHC 32.5, RDW 14.2, Plt Count 256, MPV 11.3 H, Gran % 66.1, Lymph % (Auto) 24.9 , Ashe % (Auto) 7.0 H, Eos % (Auto) 1.7, Baso % (Auto) 0.3, Gran # 4.24, Lymph # (Auto) 1.6, Ashe # (Auto) 0.5, Eos # (Auto) 0.1, Baso # (Auto) 0.02 I have reviewed the lab results: Yes - RAD Interpretation Radiology Orders: 02/02/18 18:46 CHEST PORTABLE [RAD] Stat Chiller Hand: ED Physician (cxr no acute) - EKG Interpretation Interpreted by ED Physician: Yes (SR with occasional PVCs) Type: 12 lead EKG Comparison: Similar to previous EKG (12/11/17) - Medication Orders Current Medication Orders: Discontinued Medications Morphine Sulfate (Morphine) 2 mg IVP STAT STA Stop: 02/02/18 18:54 Last Admin: 02/02/18 19:16 Dose: Not Given Non-Admin Reason: Patient Refused Nitroglycerin (Nitrostat Sl Tab) 0.4 mg SL STAT STA Stop: 02/02/18 19:26 Last Admin: 02/02/18 20:01 Dose: 0.4 mg Ondansetron HCl (Zofran Inj) 4 mg IVP STAT STA Stop: 02/02/18 18:54 Last Admin: 02/02/18 19:16 Dose: Not Given Non-Admin Reason: Patient Refused Disposition/Present on Arrival - Present on Arrival Any Indicators Present on Arrival: No History of DVT/PE: No History of Uncontrolled Diabetes: No Urinary Catheter: No History of Decub. Ulcer: No History Surgical Site Infection Following: None - Disposition Have Diagnosis and Disposition been Completed?: Yes Diagnosis: Chest pain Disposition: HOSPITALIZED Disposition Time: 21:22 Patient Plan: Admission, Telemetry Condition: IMPROVED Discharge Instructions (ExitCare): Chest Pain (ED) Referrals: Tamara Zaidi MD [Primary Care Provider] - Follow up with primary Forms: [employer] (Portuguese)
[2018-02-02] MEDS ORDERED: Morphine 4 mg/ml ISec IVP STA (18:53)
[2018-02-02 19:25] LABS: VENOUS BLOOD GAS PO2 54 mm/Hg (30-55); VENOUS BLOOD PH 7.36 (7.32-7.43)
[2018-02-02 19:27] LABS: BASO # 0.02 K/mm3 (0.0-2.0); BASO % 0.3 % (0.0-3.0); EOS # 0.1 (0.0-0.7); EOS % 1.7 % (1.5-5.0); GRAN # 4.24 (1.4-6.5); GRAN % 66.1 % (50.0-68.0); HEMOGLOBIN 10.8 g/dL (12.0-16.0); LYMPH # 1.6 (1.2-3.4); LYMPH % 24.9 % (22.0-35.0); MEAN CELL VOLUME 85.3 fl (80.0-105.0); MEAN CORPUSCULAR HEMOGLOBIN 27.8 pg (25.0-35.0); MEAN CORPUSCULAR HGB CONC 32.5 g/dl (31.0-37.0); MEAN PLATELET VOLUME 11.3 fl (7.0-11.0); MONO # 0.5 (0.1-0.6); RBC 3.89 10^6/uL (3.5-6.1); RED CELL DISTRIBUTION WIDTH 14.2 % (11.5-14.5); WHITE BLOOD COUNT 6.4 10^3/ul (4.5-11.0)
[2018-02-02 19:31] LABS: ALB/GLOB RATIO 1.3 (1.1-1.8); ALBUMIN 3.9 g/dL (3.0-4.8); ALT/SGPT 31 U/L (7-56); AST/SGOT 25 U/L (14-36); BLOOD UREA NITROGEN 47 mg/dL (7-21); CALCIUM 8.9 mg/dL (8.4-10.5); GFR AFRICAN-AMERICAN 38; GFR NON-AFRICAN AMERICAN 31
[2018-02-02 19:41] LABS: INR 0.98 (0.93-1.08); PARTIAL THROMBOPLASTIN TIME 28.7 Seconds (25.1-36.5); PROTHROMBIN TIME 11.2 SECONDS (9.4-12.5)
[2018-02-02 19:42] LABS: B-TYPE NATRIURETIC PEPTIDE 535 pg/mL (0-450); TROPONIN I < 0.01 ng/mL
[2018-02-02] MEDS: Insulin Human NPH/Reg 70/30 Vial(3 ml) SC SCH (23:50)
[2018-02-03] MEDS ORDERED: Metoprolol 1 mg/ml Inj IVP STA (03:51)
[2018-02-03] MEDS ORDERED: Metoprolol 1 mg/ml Inj IVP ONE (03:55)
[2018-02-03 08:21] LABS: TROPONIN I 0.01 ng/mL
[2018-02-03] MEDS: Insulin Human NPH/Reg 70/30 Vial(3 ml) SC SCH ×2 (08:26→17:12)
[2018-02-03] MEDS: Insulin Reg-MEDIUM-Coverage SC SCH ×4 (08:27→22:06)
[2018-02-03] MEDS: Metoprolol Succinate 100 mg XL Tab PO SCH (08:59)
--- NOTE | 2018-02-03 13:02 | RAD ---
HISTORY: chest pain COMPARISON: Comparison chest 12/11/2017 FINDINGS: LUNGS: No active pulmonary disease. PLEURA: No significant pleural effusion identified, no pneumothorax apparent. CARDIOVASCULAR: Normal. OSSEOUS STRUCTURES: No significant abnormalities. VISUALIZED UPPER ABDOMEN: Normal. OTHER FINDINGS: None. IMPRESSION: No active disease.
[2018-02-03 23:21] VITALS: RESP 19
--- NOTE | 2018-02-03 23:50 | CARD ---
APPROVED REPORT EKG Measurement Heart [id number] <Conclusion> Sinus rhythm with occasional premature ventricular complexes Possible Left atrial enlargement Inferior infarct, age undetermined Anterior infarct, age undetermined Abnormal ECG
--- NOTE | 2018-02-04 00:36 | HP ---
DATE OF EXAM: 02/03/2018 HISTORY OF PRESENT ILLNESS: Ms. Salazar is a 77-year-old female, admitted to the hospital with left-sided chest pain. She has a history of coronary artery disease, status post LAD and right coronary artery stent placement. Denies having cough, fever. Denies any cough with expectoration. No fever. She also has chronic kidney disease stage 3. Creatinine elevated to 1.6 during this hospitalization. Chest pain resolved now. PAST MEDICAL HISTORY: Chronic kidney disease stage 3, coronary artery disease, diabetes mellitus type 2, hypertension, history of recurrent UTI. PAST SURGICAL HISTORY: Coronary artery stent placement. PERSONAL HISTORY: Nonsmoker. No history of alcohol abuse. FAMILY HISTORY: Noncontributory. ALLERGIES: NO KNOWN DRUG ALLERGIES. SOCIAL HISTORY: Lives at home. HOME MEDICATIONS: Imdur 60 mg daily, metoprolol 100 mg daily, hydrochlorothiazide 25 mg daily, aspirin 81 mg daily, Lotrel 1 tablet daily, Humulin insulin 70/30 at 20 subcutaneous b.i.d., Plavix 75 mg daily. REVIEW OF SYSTEMS: As per HPI. Rest of 12-point review of systems reviewed negative. PHYSICAL EXAMINATION: GENERAL: Comfortable in bed, in no acute distress. VITAL SIGNS: Temperature 97.8, heart rate 87 per minute, respiratory rate 20 per minute, blood pressure 157/95. HEENT: Pallor positive. NECK: No lymphadenopathy. CHEST: Air entry present and equal bilaterally. No added sounds. CARDIOVASCULAR: S1, S2 normal. No murmur. No gallop. ABDOMEN: Soft, nontender. No hepatosplenomegaly. EXTREMITIES: No edema. SPINE: Nontender. LABORATORY DATA: White count 6.4, hemoglobin 10.8, hematocrit 33.2, platelet 256. BUN 47, creatinine 1.6, glucose 163, sodium 139, potassium 4.4. Troponin less than 0.01. Chest x-ray: No infiltrate. EKG: No ST-T changes. ASSESSMENT: 1. Chest pain-left sided. 2. History of coronary artery disease. 3. Chronic kidney disease stage 3. 4. Diabetes mellitus type 2. 5. Hypertension. 6. Anemia. PLAN: She will be admitted to the hospital, tele monitoring. Cardiology consultation, Dr. Benson requested. Aspirin 81 mg daily, Plavix 75 mg p.o. daily, hydralazine 50 mg p.o. t.i.d., hydrochlorothiazide 25 mg p.o. daily, insulin sliding scale. We will continue Imdur 60 mg daily, metoprolol 100 mg daily. Labs were ordered for tomorrow. We will continue to monitor troponin. Tele monitoring to continue. Iron studies, B12, folate are ordered. Charisma Reno MD
--- NOTE | 2018-02-04 01:10 | CON ---
DATE: 02/03/2018 REQUESTING PHYSICIAN: Dr. Berkowitz. REASON FOR CONSULTATION: Chest pain. HISTORY OF PRESENT ILLNESS: This is a 77-year-old woman well-known to us with a history of coronary artery disease, status post multivessel PCI in the past who presents to the emergency room complaining of diffuse body aches. She states that she felt weakness and diffuse muscle and joint pain. She denies any cough or fever. When last admitted with chest pain in November, she underwent cardiac catheterization and was found to have in-stent restenosis of RCA and was treated with placement of an additional stent. She has prior LAD and circumflex stents as well. Her left ventricular function is noted be normal. PAST MEDICAL HISTORY: Notable for hypertension, chronic renal insufficiency, diabetes, hyperlipidemia, prior carotid endarterectomy, prior hysterectomy and right bundle-branch block. CURRENT MEDICATIONS: Include aspirin, insulin coverage, hydrochlorothiazide, Imdur 60 mg daily, Plavix 75 mg daily, metoprolol 100 mg daily. ALLERGIES: NONE. SOCIAL HISTORY: She is . She lives at home. She does not smoke or drink. FAMILY HISTORY: Unremarkable for premature heart disease. REVIEW OF SYSTEMS: A 10-point review of systems is notable mainly for problems mentioned above. PHYSICAL EXAMINATION: GENERAL: She is an elderly woman who appears comfortable at rest. VITAL SIGNS: Blood pressure is 140/84 with a pulse of 72, respirations are 16. She is afebrile. HEENT: No JVD. CHEST: A few scattered rhonchi noted. HEART: PMI displaced laterally with systolic murmur present at the lower left sternal border. ABDOMEN: Soft and nontender with bowel sounds. EXTREMITIES: No edema. SKIN: Warm, dry. PSYCHIATRIC: Normal mood and affect. Mild diffuse muscle tenderness is noted. LABORATORY DATA: Electrocardiogram reveals sinus rhythm with nonspecific ST-T abnormalities. Chest x-ray revealed normal cardiac silhouette with clear lung mclaughlin. White count 6.4, hemoglobin and hematocrit 10.8 and 33.2 with platelet count 256,000. PT/PTT are normal. Potassium 4.4, BUN and creatinine 47 and 1.6, glucose 163. Two sets of cardiac enzymes are normal. CK is 128. IMPRESSION: 1. Diffuse muscle ache, etiology is somewhat unclear. She is not currently on statin, just think that this would be a precipitating her current symptoms. She has had similar symptoms in the past when she was found to have progressive coronary disease; however, she does not have a clear picture of the chest pain at the present time. 2. The blood pressure has been markedly elevated at times, which is of great concern to her. Last evening she had a systolic blood pressure of 205. 3. Known coronary disease status post multivessel percutaneous coronary intervention. 4. Rest of problems as noted. RECOMMENDATIONS: Telemetry observation will be advised. Addition of hydralazine in an attempt to lower her blood pressure will be planned. The rest of her medications will continue unchanged. Her old testing will be reviewed. Further recommendations will be based on her clinical course and results of the above evaluation. Thank you for this consultation. I will be happy to follow as needed. Guido Negro MD MTDD
[2018-02-04 05:10] LABS: URINE BILIRUBIN NEGATIVE (NEGATIVE); URINE BLOOD NEGATIVE (NEGATIVE); URINE GLUCOSE (UA) NEGATIVE (NEGATIVE); URINE LEUKOCYTE ESTERASE NEGATIVE Leu/uL (NEGATIVE); URINE PROTEIN 100 mg/dL (<30 mg/dL); URINE UROBILINOGEN 0.2 E.U./dL (<1 E.U./dL)
[2018-02-04 05:21] LABS: URINE APPEARANCE CLEAR (CLEAR)
[2018-02-04 05:22] LABS: URINE COLOR LIGHT YELLOW (YELLOW)
[2018-02-04 06:10] VITALS: BP 132/78; TEMP 98.2; O2SAT 98
[2018-02-04 06:51] LABS: URINE EPITHELIAL CELLS 0 - 2 /hpf (0-5); URINE RBC 0 - 2 /hpf (0-2); URINE WBC 0 - 2 /hpf (0-6)
[2018-02-04 07:55] LABS: BASO # 0.01 K/mm3 (0.0-2.0); BASO % 0.2 % (0.0-3.0); EOS # 0.1 (0.0-0.7); EOS % 2.1 % (1.5-5.0); GRAN # 3.43 (1.4-6.5); GRAN % 51.9 % (50.0-68.0); HEMOGLOBIN 11.3 g/dL (12.0-16.0); LYMPH # 2.5 (1.2-3.4); LYMPH % 37.8 % (22.0-35.0); MEAN CELL VOLUME 85.3 fl (80.0-105.0); MEAN CORPUSCULAR HEMOGLOBIN 28.2 pg (25.0-35.0); MEAN PLATELET VOLUME 11.4 fl (7.0-11.0); MONO # 0.5 (0.1-0.6); RBC 4.01 10^6/uL (3.5-6.1); RED CELL DISTRIBUTION WIDTH 14.3 % (11.5-14.5); WHITE BLOOD COUNT 6.6 10^3/ul (4.5-11.0)
[2018-02-04 08:45] LABS: CALCIUM 9.1 mg/dL (8.4-10.5)
[2018-02-04 09:01] LABS: IRON 67 ug/dL (45-180)
[2018-02-04 09:10] LABS: % IRON SATURATION 21 % (20-55); TOTAL IRON BINDING CAPACITY 322 ug/dL (265-497)
[2018-02-04] MEDS: Insulin Reg-MEDIUM-Coverage SC SCH ×2 (10:08→13:47)
[2018-02-04] MEDS: Metoprolol Succinate 100 mg XL Tab PO SCH (10:14)
[2018-02-04] MEDS: Insulin Human NPH/Reg 70/30 Vial(3 ml) SC SCH (10:14)
[2018-02-04 11:40] LABS: FERRITIN 39.2 ng/mL
--- NOTE | 2018-02-04 12:20 | PN ---
DATE: 02/04/2018 SUBJECTIVE: The patient is seen lying in bed on Telemetry. She states that she feels significantly better. Her aches are improved. She denies any chest pain. CURRENT MEDICATIONS: Include hydralazine 50 mg t.i.d., aspirin once daily, hydrochlorothiazide 25 mg daily, Imdur 60 mg daily, Plavix 75 mg daily, metoprolol 100 mg daily. OBJECTIVE: GENERAL: She is an elderly woman who appears comfortable at rest. VITAL SIGNS: Her blood pressure is 132/78 with a pulse of 66 and in sinus, respirations are 16, she is afebrile. HEENT: No JVD. CHEST: Few scattered rhonchi. HEART: PMI displaced laterally with systolic murmur at left sternal border. ABDOMEN: Soft, nontender. Normoactive bowel sounds. EXTREMITIES: No edema. DIAGNOSTIC DATA: White count is 6.6, hemoglobin and hematocrit 11.3 and 34.2 with a platelet count of 267,000. Cardiac enzymes have been negative. IMPRESSION: 1. Generalized fatigue and myalgias, clinically improved. 2. Known coronary artery disease, status post multivessel percutaneous coronary intervention, stable at present. 3. Transient hypertension, now improved. RECOMMENDATIONS: From a cardiac standpoint, she appears stable at this time. Discharge home with outpatient followup would be reasonable. She was instructed to call if any recurrent symptoms. Guido Negro MD
[2018-02-04 12:34] VITALS: PULSE 78
--- NOTE | 2018-02-04 21:38 | CARD ---
APPROVED REPORT EKG Measurement Heart [id number] MI [id number] <Conclusion> Sinus rhythm with fusion complexes Incomplete right bundle branch block Inferior infarct, age undetermined Abnormal ECG
--- NOTE | 2018-02-04 22:31 | DS ---
DATE OF DISCHARGE: 02/04/2018 DISCHARGE DIAGNOSES: 1. Left-sided chest pain. 2. Uncontrolled hypertension. 3. Coronary artery disease. 4. Diabetes mellitus type 2. 5. Anemia. HOSPITAL COURSE: She was admitted with left-sided chest pain. Cardiology, Dr. Benson, evaluated. She was started on hydralazine 50 mg t.i.d. Blood pressures were controlled during hospitalization. Chest pain resolved. Troponins were negative. EKG did not show any changes. She will be followed with Cardiology upon discharge from the hospital. PHYSICAL EXAMINATION: GENERAL: Comfortable in bed, in no acute distress. VITAL SIGNS: Temperature 98.8, heart rate is 70 per minute, respiratory rate 18 per minute, blood pressure 130/70. HEENT: Pallor positive. NECK: No lymphadenopathy. CHEST: Air entry present and equal bilaterally. No added sound. CARDIOVASCULAR: S1 and S2 normal. No murmur. No gallop. ABDOMEN: Soft, nontender. No hepatosplenomegaly. EXTREMITIES: No edema. SPINE: Nontender. SKIN: No petechiae. No rash. CONDITION ON DISCHARGE: Stable. DISPOSITION: Discharge home. DIET: Heart-healthy diet. DISCHARGE MEDICATIONS: Resume home medications. Prescription for hydralazine 50 mg p.o. t.i.d. given for 2 weeks. She was advised to follow up with Dr. Benson in 1 week, Dr. Cope in 1 week. Time spent preparing discharge and coordinating care 55 minutes. Charisma Reno MD
== END 2018-02-04 14:11 | disposition home or self-care (01) ==
LOC: ED 18:09 → ERH 21:20 → 2RSO 22:51
PROVIDERS: ADMIT Internal Medicine Nephrology; ATTEND Internal Medicine Nephrology
DX: R07.89 Other chest pain (principal); M79.1 Myalgia; I25.10 Atherosclerotic heart disease of native coronary artery without angina pectoris; I12.9 Hypertensive chronic kidney disease with stage 1 through stage 4 chronic kidney disease, or unspecified chronic kidney disease; N18.3 Chronic kidney disease, stage 3 (moderate); E11.22 Type 2 diabetes mellitus with diabetic chronic kidney disease; E78.5 Hyperlipidemia, unspecified; I45.10 Unspecified right bundle-branch block; D64.9 Anemia, unspecified; Z87.440 Personal history of urinary (tract) infections; Z90.710 Acquired absence of both cervix and uterus; Z95.5 Presence of coronary angioplasty implant and graft; Z79.02 Long term (current) use of antithrombotics/antiplatelets; Z79.82 Long term (current) use of aspirin
CPT/HCPCS: 36415; 71045; 80048; 80053; 81001; 82550; 82728; 82803; 82948; 83540; 83550; 83615; 83735; 83880; 84484; 85025; 85610; 85730; 87040; 87086; 87804; 93005; 99285; G0378; J0360

== ENCOUNTER 2018-04-04 02:06 | Emergency (ER) | payer MEDICARE, BC ==
[2018-04-04 02:40] VITALS: BMI 27.6
[2018-04-04 02:52] VITALS: RESP 18; TEMP 99
[2018-04-04] MEDS ORDERED: Sodium Chloride 0.9% 1,000 ML IV STA (02:59)
--- NOTE | 2018-04-04 02:59 | ED PDOC ---
Arrival/HPI - General Chief Complaint: Back Pain Time Seen by Provider: 04/04/18 02:52 Historian: Patient - History of Present Illness Narrative History of Present Illness (Text): 04/04/18 02:59 Daniela Salazar is a 77 year old female, whose past medical history includes stage 3 chronic kidney disease, CAD with 3 cardiac stents, diabetes, hypertension, and recurrent UTI, who presents to the Emergency department brought in by EMS accompanied by son complaining of back pain and cough. Patient states she has been experiencing productive cough for 2 weeks and notes tonight she developed right lower back pain, worsened with movement. Patient reports associated nausea and dizziness. Patient denies any fever, chills, chest pain, shortness of breath, vomiting, diarrhea, urinary symptoms,neck pain, headache, or any other complaints. Symptom Onset: Gradual Symptom Course: Unchanged Activities at Onset: Light Context: Home Past Medical History - Provider Review Nursing Documentation Reviewed: Yes - Infectious Disease Hx of Infectious Diseases: None - Tetanus Immunization Tetanus Immunization: >10 years Ago - Cardiac Hx Hypertension: Yes - Pulmonary Hx Respiratory Disorders: No - Neurological Hx Dizziness: Yes - HEENT Hx HEENT Disorder: No - Renal Hx Renal Disorder: No - Endocrine/Metabolic Hx Diabetes Mellitus Type 2: Yes - Hematological/Oncological Hx Blood Disorders: No - Integumentary Hx Dermatological Disorder: No Other/Comment: old scars on knees from scrapes as a child - Musculoskeletal/Rheumatological Hx Arthritis: Yes Hx Falls: No Hx Herniated Disk: Yes - Gastrointestinal Hx Gastrointestinal Disorders: No - Genitourinary/Gynecological Hx Genitourinary Disorders: Yes - Psychiatric Hx Psychophysiologic Disorder: No Hx Substance Use: No - Past Surgical History Past Surgical History: No Previous - Surgical History Hx Coronary Stent: Yes Hx Hysterectomy: Yes - Anesthesia Hx Anesthesia: Yes Hx Anesthesia Reactions: No Hx Malignant Hyperthermia: No - Suicidal Assessment Feels Threatened In Home Enviroment: No Family/Social History - Physician Review Nursing Documentation Reviewed: Yes Family/Social History: Unknown Family HX Smoking Status: Never Smoked Hx Alcohol Use: No Hx Substance Use: No Hx Substance Use Treatment: No Allergies/Home Meds Allergies/Adverse Reactions: Allergies No Known Allergies Allergy (Verified 02/02/18 18:19) Home Medications: Home Meds Medication Instructions Recorded Confirmed Isosorbide Mononitrate [Imdur] 60 mg PO DAILY 01/24/17 02/02/18 Metoprolol Succinate 100 mg PO DAILY 01/24/17 02/02/18 hydroCHLOROthiazide [Hydrodiuril] 25 mg PO DAILY 01/24/17 02/02/18 Aspirin [Ecotrin] 81 mg PO DAILY 01/28/17 02/02/18 Lotrel 5-20 mg Capsule 1 tab PO DAILY 03/04/17 02/02/18 Insulin Human NPH/Reg [HumuLIN 20 unit SQ BID 11/27/17 02/02/18 70/30 (NPH/Reg)] Clopidogrel [Plavix] 75 mg PO DAILY 11/30/17 02/02/18 Review of Systems - Physician Review All systems were reviewed & negative as marked: Yes - Review of Systems Constitutional: Normal. absent: Fevers Eyes: Normal ENT: Normal Respiratory: Cough, Sputum Cardiovascular: Normal. absent: Chest Pain Gastrointestinal: Nausea Genitourinary Female: Normal. absent: Dysuria, Frequency, Hematuria, Urine Output Changes Musculoskeletal: Back Pain. absent: Neck Pain Skin: Normal. absent: Rash Neurological: Dizziness Endocrine: Normal Hemo/Lymphatic: Normal Psychiatric: Normal Physical Exam Vital Signs Reviewed: Yes Vital Signs Temp Pulse Resp BP Pulse Ox 04/04/18 07:45 70 18 152/72 H 100 04/04/18 04:09 67 18 159/69 H 96 04/04/18 02:50 99 F 79 18 191/90 H 98 Temperature: Afebrile Blood Pressure: Hypertensive Pulse: Regular Respiratory Rate: Normal Appearance: Positive for: Well-Appearing, Non-Toxic, Comfortable Pain Distress: None Mental Status: Positive for: Alert and Oriented X 3 - Systems Exam Head: Present: Atraumatic, Normocephalic Pupils: Present: PERRL Extroacular Muscles: Present: EOMI Conjunctiva: Present: Normal Mouth: Present: Moist Mucous Membranes Neck: Present: Normal Range of Motion Respiratory/Chest: Present: Clear to Auscultation, Good Air Exchange. No: Respiratory Distress, Accessory Muscle Use Cardiovascular: Present: Regular Rate and Rhythm, Normal S1, S2. No: Murmurs Abdomen: No: Tenderness, Distention, Peritoneal Signs Back: Present: Normal Inspection Upper Extremity: Present: Normal Inspection. No: Cyanosis, Edema Lower Extremity: Present: Normal Inspection. No: Edema Neurological: Present: GCS=15, CN II-XII Intact, Speech Normal Skin: Present: Warm, Dry, Normal Color. No: Rashes Psychiatric: Present: Alert, Oriented x 3, Normal Insight, Normal Concentration Medical Decision Making ED Course and Treatment: 04/04/18 02:59 Impression: 77 year old female complaining of productive cough, back pain, nausea, and dizziness. Plan: -- CT Abdomen and Pelvis w/o contrast -- EKG -- Chest X-ray -- Labs, cardiac enzymes, amylase, lipase, blood cultures -- Urinalysis, urine cultures -- IV fluids -- Zofran -- Reassess and disposition Progress Notes: Reviewed EKG, NSR at 90 bpm. RBBB. Inferior infarct. Non-specific ST/T wave changes. 04/04/18 05:44 Chest X-ray reviewed, shows no acute processes. 04/04/18 06:56 Reviewed radiology, CT Abdomen and Pelvis shows: Lower thorax: Mild dependent atelectatic changes in the lungs. ABDOMEN: Liver: Normal. No mass. Gallbladder and bile ducts: Normal. No calcified stones. No ductal dilation. Pancreas: Normal. No ductal dilation. Spleen: Normal. No splenomegaly. Adrenals: Normal. No mass. Kidneys and ureters: Prominence of the right proximal ureter without obstructing stone identified. Stomach and bowel: Diverticulosis without diverticulitis. Appendix: Normal appendix. PELVIS: Bladder: Unremarkable as visualized. Reproductive: Surgically absent uterus. ABDOMEN and PELVIS: Intraperitoneal space: Normal. No free air. No significant fluid collection. Bones/joints: Degenerative changes of the osseous structures. No acute fracture. No dislocation. Soft tissues: Unremarkable. Vasculature: Heavy atherosclerotic calcification of the aorta and branching vessels. Lymph nodes: Normal. No enlarged lymph nodes. IMPRESSION: Prominence of the right proximal ureter without obstructing stone identified. - Lab Interpretations Microbiology Results: Microbiology Results 04/04/18 03:15 Blood-Venous Blood Culture - Preliminary NO GROWTH AFTER 24 HOURS 04/04/18 03:00 Blood-Venous Blood Culture - Preliminary NO GROWTH AFTER 24 HOURS Lab Results: 04/04/18 03:06 04/04/18 03:06 Lab Results 04/04/18 05:15: Urine Color Straw, Urine Appearance Clear, Urine pH 6.5, Ur Specific [place] <= 1.005, Urine Protein 30 H, Urine Glucose (UA) Negative, Urine Ketones Negative, Urine Blood Negative, Urine Nitrate Negative, Urine Bilirubin Negative, Urine Urobilinogen 0.2, Ur Leukocyte Esterase Negative, Urine RBC 0 - 2, Urine WBC 0 - 2, Ur Epithelial Cells 0 - 2 04/04/18 03:06: Sodium 143, Potassium 4.3, Chloride 104, Carbon Dioxide 26, Anion Gap 16, BUN 49 H, Creatinine 1.9 H, Est GFR ( Amer) 31, Est GFR ( Non-Af Amer) 26, Random Glucose 128 H, Calcium 9.2, Total Bilirubin 0.5, AST 27 , ALT 29, Alkaline Phosphatase 69, Lactate Dehydrogenase 539, Total Creatine Kinase 141, Troponin I < 0.01, Total Protein 7.4, Albumin 4.3, Globulin 3.1, Albumin/Globulin Ratio 1.4, Amylase 102, Lipase 265 04/04/18 03:06: PT 11.0, INR 0.97, APTT 29.4 04/04/18 03:06: WBC 6.0, RBC 3.98, Hgb 11.1 L, Hct 33.4 L, MCV 83.9, MCH 27.9, MCHC 33.2, RDW 13.7, Plt Count 260, MPV 10.9, Gran % 61.6, Lymph % (Auto) 29.4, [place] % (Auto) 6.9 H, Eos % (Auto) 1.8, Baso % (Auto) 0.3, Gran # 3.66, Lymph # ( Auto) 1.8, [place] # (Auto) 0.4, Eos # (Auto) 0.1, Baso # (Auto) 0.02 I have reviewed the lab results: Yes - RAD Interpretation Radiology Orders: 04/04/18 02:59 ABD & PELVIS W/O PO OR IV CONT [CT] Stat 04/04/18 03:01 CHEST TWO VIEWS (PA/LAT) [RAD] Stat Director Of Product Development: ED Physician, Radiologist - EKG Interpretation Interpreted by ED Physician: Yes Type: 12 lead EKG - Medication Orders Current Medication Orders: Discontinued Medications Sodium Chloride (Sodium Chloride 0.9%) 1,000 mls @ 80 mls/hr IV .[id number] STA Stop: 04/04/18 15:28 Last Admin: 04/04/18 03:24 Dose: 80 mls/hr eMAR Start Stop Document 04/04/18 03:24 AD (Rec: 04/04/18 03:24 AD [id number]) Intravenous Solution Start Date 04/04/18 Start Time 03:24 Ondansetron HCl (Zofran Inj) 4 mg IVP STAT STA Stop: 04/04/18 03:00 Last Admin: 04/04/18 03:24 Dose: 4 mg IVP Administration Document 04/04/18 03:24 AD (Rec: 04/04/18 03:24 AD [id number]) Charges for Administration # of IVP Administrations 1 - Scribe Statement The provider has reviewed the documentation as recorded by the Nik Paula Provider Scribe Attestation: All medical record entries made by the Scribe were at my direction and personally dictated by me. I have reviewed the chart and agree that the record accurately reflects my personal performance of the history, physical exam, medical decision making, and the department course for this patient. I have also personally directed, reviewed, and agree with the discharge instructions and disposition. Disposition/Present on Arrival - Present on Arrival Any Indicators Present on Arrival: No History of DVT/PE: No History of Uncontrolled Diabetes: No Urinary Catheter: No History of Decub. Ulcer: No History Surgical Site Infection Following: None - Disposition Have Diagnosis and Disposition been Completed?: Yes Diagnosis: Hydroureter, Kidney stone on right side Disposition: HOME/ ROUTINE Disposition Time: 07:15 Condition: GOOD Discharge Instructions (ExitCare): Kidney Stones in Adults Prescriptions: Tramadol HCl [Ultram] 50 mg PO QID #8 tab Forms: [facility] ([place])
[2018-04-04 03:39] LABS: BASO # 0.02 K/mm3 (0.0-2.0); BASO % 0.3 % (0.0-3.0); EOS # 0.1 (0.0-0.7); EOS % 1.8 % (1.5-5.0); GRAN # 3.66 (1.4-6.5); GRAN % 61.6 % (50.0-68.0); HEMOGLOBIN 11.1 g/dL (12.0-16.0); LYMPH # 1.8 (1.2-3.4); LYMPH % 29.4 % (22.0-35.0); MEAN CELL VOLUME 83.9 fl (80.0-105.0); MEAN CORPUSCULAR HEMOGLOBIN 27.9 pg (25.0-35.0); MEAN CORPUSCULAR HGB CONC 33.2 g/dl (31.0-37.0); MEAN PLATELET VOLUME 10.9 fl (7.0-11.0); MONO # 0.4 (0.1-0.6); MONO % 6.9 % (1.0-6.0); RBC 3.98 10^6/uL (3.5-6.1); RED CELL DISTRIBUTION WIDTH 13.7 % (11.5-14.5)
[2018-04-04 03:45] LABS: ALB/GLOB RATIO 1.4 (1.1-1.8); ALBUMIN 4.3 g/dL (3.0-4.8); ALT/SGPT 29 U/L (7-56); AMYLASE 102 U/L (35-125); AST/SGOT 27 U/L (14-36); BLOOD UREA NITROGEN 49 mg/dL (7-21); CALCIUM 9.2 mg/dL (8.4-10.5); GFR AFRICAN-AMERICAN 31; GFR NON-AFRICAN AMERICAN 26; LIPASE 265 U/L (23-300)
[2018-04-04 03:57] LABS: TROPONIN I < 0.01 ng/mL
[2018-04-04 04:19] LABS: INR 0.97 (0.93-1.08); PARTIAL THROMBOPLASTIN TIME 29.4 Seconds (25.1-36.5)
[2018-04-04 06:02] LABS: PH,URINE 6.5 (4.7-8.0); URINE BILIRUBIN NEGATIVE (NEGATIVE); URINE BLOOD NEGATIVE (NEGATIVE); URINE GLUCOSE (UA) NEGATIVE (NEGATIVE); URINE LEUKOCYTE ESTERASE NEGATIVE Leu/uL (NEGATIVE); URINE PROTEIN 30 mg/dL (<30 mg/dL); URINE UROBILINOGEN 0.2 E.U./dL (<1 E.U./dL)
[2018-04-04 06:10] LABS: URINE APPEARANCE CLEAR (CLEAR); URINE COLOR STRAW (YELLOW)
[2018-04-04 06:18] LABS: URINE EPITHELIAL CELLS 0 - 2 /hpf (0-5); URINE RBC 0 - 2 /hpf (0-2); URINE WBC 0 - 2 /hpf (0-6)
[2018-04-04 08:07] VITALS: BP 152/72; PULSE 70; O2SAT 100
--- NOTE | 2018-04-04 09:15 | RAD ---
HISTORY: fall COMPARISON: 02/02/2018 TECHNIQUE: Chest PA and lateral FINDINGS: LUNGS: No active pulmonary disease. PLEURA: No significant pleural effusion identified. No pneumothorax apparent. CARDIOVASCULAR: Normal. OSSEOUS STRUCTURES: No significant abnormalities. VISUALIZED UPPER ABDOMEN: Normal. OTHER FINDINGS: None. IMPRESSION: No active disease.
--- NOTE | 2018-04-04 09:28 | CARD ---
APPROVED REPORT EKG Measurement Heart [id number] <Conclusion> Normal sinus rhythm Possible Left atrial enlargement Right bundle branch block Inferior infarct, age undetermined Abnormal ECG
--- NOTE | 2018-04-04 13:10 | CT ---
PROCEDURE: CT Abdomen and Pelvis without intravenous contrast HISTORY: rt flank pain COMPARISON: 06/03/2015 TECHNIQUE: Without contrast.. Contrast dose: Radiation dose: Total exam DLP = 642 mGy-cm. This CT exam was performed using one or more of the following dose reduction techniques: Automated exposure control, adjustment of the mA and/or kV according to patient size, and/or use of iterative reconstruction technique. FINDINGS: LOWER THORAX: Coronary artery calcification LIVER: Unremarkable. No gross lesion or ductal dilatation. GALLBLADDER AND BILE DUCTS: Unremarkable. PANCREAS: Unremarkable. No gross lesion or ductal dilatation. SPLEEN: Unremarkable. ADRENALS: Unremarkable. No mass. KIDNEYS AND URETERS: Unremarkable. No hydronephrosis. No solid mass. The right proximal ureter is mildly dilated. There is no obstructing stone. This is unchanged from the previous study VASCULATURE: Unremarkable. No aortic aneurysm. BOWEL: Unremarkable. No obstruction. No gross mural thickening. APPENDIX: Unremarkable. Normal appendix. PERITONEUM: Unremarkable. No free fluid. No free air. LYMPH NODES: Unremarkable. No enlarged lymph nodes. BLADDER: Unremarkable. REPRODUCTIVE: Unremarkable. BONES: No acute fracture. OTHER FINDINGS: The report concurs with the preliminary [facility] report IMPRESSION: No acute finding. No evidence of urolithiasis
== END 2018-04-04 07:45 | disposition home or self-care (01) ==
LOC: ED 02:06
DX: N13.4 Hydroureter (principal); N20.0 Calculus of kidney; I12.9 Hypertensive chronic kidney disease with stage 1 through stage 4 chronic kidney disease, or unspecified chronic kidney disease; E11.22 Type 2 diabetes mellitus with diabetic chronic kidney disease; N18.3 Chronic kidney disease, stage 3 (moderate)
CPT/HCPCS: 71046; 74176; 80053; 81001; 82150; 82550; 83615; 83690; 84484; 85025; 85610; 85730; 87040; 87086; 93005; 96374; 99283; J2405; J7030

== ENCOUNTER 2018-08-28 01:00 | Observation (INO) | payer MEDICARE, BC ==
[2018-08-28 01:12] VITALS: BMI 27.3
--- NOTE | 2018-08-28 01:39 | ED PDOC ---
Arrival/HPI - General Chief Complaint: Dizziness/Lightheaded Time Seen by Provider: 08/28/18 01:02 Historian: Patient - History of Present Illness Narrative History of Present Illness (Text): 08/28/18 01:36 78 year old female, whose past medical history includes CAD s/p stent placement, diabetes, RCA, hypertension, and dislipidemia, presents to the emergency department with with lightheadedness, since 2 hours prior. Patient states she felt dizzy and a weird painful sensation in her left arm. Patient denies any fevers, chills, chest pain, shortness of breath, cough, abdominal pain, nausea, vomiting, diarrhea, back pain, neck pain, urinary/bowel changes, or any other complaint. Time/Duration: 1-3 hours Symptom Onset: Gradual Symptom Course: Unchanged Past Medical History - Provider Review Nursing Documentation Reviewed: Yes - Infectious Disease Hx of Infectious Diseases: None - Tetanus Immunization Tetanus Immunization: >10 years Ago - Cardiac Hx Hypertension: Yes - Pulmonary Hx Respiratory Disorders: No - Neurological Hx Dizziness: Yes - HEENT Hx HEENT Disorder: No - Renal Hx Renal Disorder: No - Endocrine/Metabolic Hx Diabetes Mellitus Type 2: Yes - Hematological/Oncological Hx Blood Disorders: No - Integumentary Hx Dermatological Disorder: No Other/Comment: old scars on knees from scrapes as a child - Musculoskeletal/Rheumatological Hx Arthritis: Yes Hx Falls: No Hx Herniated Disk: Yes - Gastrointestinal Hx Gastrointestinal Disorders: No - Genitourinary/Gynecological Hx Genitourinary Disorders: Yes - Psychiatric Hx Psychophysiologic Disorder: No Hx Substance Use: No - Past Surgical History Past Surgical History: No Previous - Surgical History Hx Coronary Stent: Yes Hx Hysterectomy: Yes - Anesthesia Hx Anesthesia: Yes Hx Anesthesia Reactions: No Hx Malignant Hyperthermia: No - Suicidal Assessment Feels Threatened In Home Enviroment: No Family/Social History - Physician Review Nursing Documentation Reviewed: Yes Family/Social History: No Known Family HX Smoking Status: Never Smoked Hx Alcohol Use: No Hx Substance Use: No Hx Substance Use Treatment: No Allergies/Home Meds Allergies/Adverse Reactions: Allergies No Known Allergies Allergy (Verified 02/02/18 18:19) Home Medications: Home Meds Medication Instructions Recorded Confirmed RX: Isosorbide Mononitrate [Imdur] 60 mg PO DAILY 01/24/17 08/28/18 RX: Metoprolol Succinate 100 mg PO DAILY 01/24/17 08/28/18 RX: hydroCHLOROthiazide 25 tab PO DAILY 01/24/17 08/28/18 [Hydrodiuril] RX: Aspirin [Ecotrin] 81 mg PO DAILY 01/28/17 08/28/18 Lotrel 5-20 mg Capsule 1 tab PO DAILY 03/04/17 08/28/18 RX: Insulin Human NPH/Reg [HumuLIN 20 unit SQ BID 11/27/17 08/28/18 70/30 (NPH/Reg)] RX: Clopidogrel [Plavix] 75 mg PO DAILY 11/30/17 08/28/18 RX: Simvastatin [Zocor] 80 tab PO DAILY 08/28/18 08/28/18 Review of Systems - Physician Review All systems were reviewed & negative as marked: Yes - Review of Systems Constitutional: absent: Fevers, Night Sweats Respiratory: absent: SOB, Cough Cardiovascular: absent: Chest Pain Gastrointestinal: absent: Abdominal Pain, Diarrhea, Nausea, Vomiting Genitourinary Female: absent: Urine Output Changes Musculoskeletal: absent: Back Pain, Neck Pain Neurological: Dizziness, Other ("weird" sensation in left arm) Physical Exam - Physical Exam Narrative Physical Exam (Text): 08/28/18 01:42 Gen: VS reviewed, alert, well developed, well nourished, nontoxic, mild distres s. ENT: normal pharynx. Eye: EOMI, PERRL. Neck: no JVD, supple, no adenopathy. CV: regular rate, regular rhythm, no rubs, no murmur, no gallops, S1, S2, pulses equal and strong. Pulm: no distress, clear to auscultation, no wheeze, no rhonchi, breath sounds equal, no rales. Abd: soft, nontender, no guarding, no rebound, no rigidity, normal bowel sounds. Ext: no edema. Skin: good color, no rash, no cyanosis. Psych: responds appropriately to questions, normal affect. Neuro: oriented x 3, CN2-12 intact grossly, motor intact, sensation intact, normal finger to nose bilaterally, normal heel to chin bilaterally 08/28/18 02:13 Vital Signs Reviewed: Yes Vital Signs Temp Pulse Resp BP Pulse Ox 08/28/18 01:07 98.3 F 78 18 182/77 H 99 Temperature: Afebrile Blood Pressure: Hypertensive Pulse: Regular Respiratory Rate: Normal Appearance: Positive for: Well-Appearing, Non-Toxic, Comfortable Pain Distress: None Mental Status: Positive for: Alert and Oriented X 3 Medical Decision Making ED Course and Treatment: 08/28/18 01:43 Impression: 78 year old female presents with lightheadedness and left arm pain. Plan: -- Labs -- CTA -- CT Head -- EKG -- Chest X-ray -- Urinalysis -- Reassess and disposition Prior Visits: Notes and results from previous visits were reviewed. Progress Notes: 08/28/18 01:45 patient with a hx of htn and nstemi presents with acute vertigo and gait imbalance. code stroke initiated as patient has advanced age with hx atherosclerotic heart vessel disease with acute neurologic complaint. at this time NIH stroke scale = 0. will contact neurology once CT is performed. at time of questioning, i introduced myself to family member (asked "hi, are you family") and the family member looked at me with annoyed look on her face and replied "i hope so". 08/28/18 01:49 08/28/18 02:52 numerous phone calls have been placed to neurology with no return call. 08/28/18 03:28 i went to explain to the patient and (now confirmed to be the daughter) that the current tests do not show acute pathology and that there is a concern for stroke. the daughter continued her rude demeaner and disrespectful tone and i politely asked her to leave to room while i talked to the patient. the daughter refused to leave and the patient asked the daughter "dont talk to him like that". the daughter again stated that the blood pressure is high. the blood pressure at this time is 161/90 and the patient does not have any symptoms. the patient states she would like a minute to think about staying in the hospital or not. 08/28/18 03:34 08/28/18 03:42 blood pressure is now 186/91, no headache or chest pain, will give antihypertensive 08/28/18 03:[address] scott, patient to be admit for transient dizziness and loss of balance. concern for cva. patient has not exhibited neurologic symptoms during ED visit and thrombolysis is not indicated. blood pressure fluctuated during ED course but has not escalated to critical level. 08/28/18 03:[address] parada, neurology, agrees with aspirin dose and recommends mri brain without con routine study - RAD Interpretation Narrative RAD Interpretations (Text): 08/28/18 02:12 CT HEAD CLINICAL HISTORY: Stroke. TECHNIQUE: Multiple axial CT images were obtained through the brain without IV contrast material. COMMENTS: There is normal configuration of sella turcica. There are no intra or extra- axial collections. There is no mass effect or midline shift. There is no evidence of hematoma formation. No hydrocephalus is present. The ventricles are symmetrical. No abnormal calcifications are present. There is diffuse age-appropriate cerebellar and cerebral atrophy with proportionally dilated ventricles and cortical sulci. There are bilateral periventricular and subcortical white matter hypolucencies compatible with mild chronic microvascular disease. Otherwise, no significant focal abnormalities are seen either in the posterior fossa or supratentorial compartment. IMPRESSION: 1. Age-appropriate cerebellar and cerebral atrophy. 2. Mild chronic microvascular disease. 3. No evidence of acute intracranial pathology. 08/28/18 04:10 cxr my read: no focal infiltrate, no ptx, no wide mediastinum Industrial Economist: Radiologist - EKG Interpretation EKG Interpretation (Text): 08/28/18 02:10 0113: nsr at 82 bpm, rbbb, inferior infacrt, no acute sttw abn Interpreted by ED Physician: Yes NIHSS Scale ([place]) Time Performed: 01:30 - How Severe is the Stoke Baseline Level of Consciousness: 0=Alert LOC to Questions: 0=Both comments correct LOC to commands: 0=Obeys both correctly Best Gaze: 0=Normal Visual: 0=No visual loss Facial: 0=Normal Motor Arm - Left: 0=No drift Motor Arm - Right: 0=No drift Motor Leg - Left: 0=No drift Motor Leg - Right: 0=No drift Limb Ataxia: 0=Absent Sensory: 0=Normal Best Language: 0=No aphasia Dysarthia: 0=Normal articulation Extinction & Inattention (Neglect): 0=Normal, no object Score: 0 Risk Level: No Stroke Risk rTPA Inclusion/Exclusion - Refusal of Treatment Patient Refused Treatment: No - Inclusion Criteria for Altepase Patient is 18 years or Older: Yes The Clinical Diagnosis of Ischemic Stroke That is Causing a Potentially Disabling Neurological Deficit: Yes Time of Onset is Well Established to be Less Than 270 Minute Before Treatment Would Begin: Yes Risk/Benefit Discussed With Patient/Family Member Present: Yes - Exclusion Criteria for Altepase Uncontrolled Hypertension at Time of Treatment (Systolic BP above 185 or Diastolic BP above 110 mmHg): No - Warning to TPA With Conditions Condition: Stroke Serevity Too Mild (clincially not indicated) - Scribe Statement The provider has reviewed the documentation as recorded by the Jose Albertoibliz Canseco Provider Scribe Attestation: All medical record entries made by the Jose Albertoibliz were at my direction and personally dictated by me. I have reviewed the chart and agree that the record accurately reflects my personal performance of the history, physical exam, medical decision making, and the department course for this patient. I have also personally directed, reviewed, and agree with the discharge instructions and disposition. Disposition/Present on Arrival - Present on Arrival Any Indicators Present on Arrival: No History of DVT/PE: No History of Uncontrolled Diabetes: No Urinary Catheter: No History of Decub. Ulcer: No History Surgical Site Infection Following: None - Disposition Have Diagnosis and Disposition been Completed?: Yes Diagnosis: TIA (transient ischemic attack), Hypertension Disposition: HOSPITALIZED Disposition Time: 03:42 Patient Plan: Observation Patient Problems: Current Active Problems Problem Status Onset Hypertension Acute TIA (transient ischemic attack) Acute Diabetes mellitus Resolved Condition: STABLE
[2018-08-28 02:07] LABS: BASO # 0.03 K/mm3 (0.0-2.0); BASO % 0.4 % (0.0-3.0); EOS # 0.1 (0.0-0.7); EOS % 1.2 % (1.5-5.0); GRAN # 5.84 (1.4-6.5); GRAN % 72.8 % (50.0-68.0); HEMOGLOBIN 11.3 g/dL (12.0-16.0); LYMPH # 1.5 (1.2-3.4); LYMPH % 19.2 % (22.0-35.0); MEAN CORPUSCULAR HEMOGLOBIN 27.8 pg (25.0-35.0); MEAN CORPUSCULAR HGB CONC 32.3 g/dl (31.0-37.0); MEAN PLATELET VOLUME 11.2 fl (7.0-11.0); MONO # 0.5 (0.1-0.6); MONO % 6.4 % (1.0-6.0); RBC 4.07 10^6/uL (3.5-6.1); RED CELL DISTRIBUTION WIDTH 13.4 % (11.5-14.5)
[2018-08-28 02:16] LABS: INR 0.95; PARTIAL THROMBOPLASTIN TIME 29.9 Seconds (25.1-36.5); PROTHROMBIN TIME 10.8 SECONDS (9.4-12.5)
[2018-08-28 02:21] LABS: ALB/GLOB RATIO 1.2 (1.1-1.8); ALBUMIN 4.4 g/dL (3.0-4.8); CALCIUM 9.6 mg/dL (8.4-10.5)
[2018-08-28 02:35] LABS: TROPONIN I 0.01 ng/mL
[2018-08-28 02:49] LABS: PH,URINE 6.5 (4.7-8.0); URINE BILIRUBIN NEGATIVE (NEGATIVE); URINE BLOOD NEGATIVE (NEGATIVE); URINE GLUCOSE (UA) NEGATIVE (NEGATIVE); URINE LEUKOCYTE ESTERASE NEGATIVE Leu/uL (NEGATIVE); URINE UROBILINOGEN 0.2 E.U./dL (<1 E.U./dL)
[2018-08-28 02:55] LABS: URINE APPEARANCE CLEAR (CLEAR); URINE COLOR STRAW (YELLOW); URINE PROTEIN NEGATIVE mg/dL (<30 mg/dL)
[2018-08-28 05:51] VITALS: O2SAT 99
--- NOTE | 2018-08-28 07:52 | CT ---
Date of service: 08/28/2018 PROCEDURE: CT HEAD WITHOUT CONTRAST. HISTORY: Code Stroke COMPARISON: Noncontrast head CT 12/07/2014. TECHNIQUE: Axial computed tomography images were obtained through the head/brain without intravenous contrast. Radiation dose: Total exam DLP = 870.1 mGy-cm. This CT exam was performed using one or more of the following dose reduction techniques: Automated exposure control, adjustment of the mA and/or kV according to patient size, and/or use of iterative reconstruction technique. FINDINGS: HEMORRHAGE: No intracranial hemorrhage. BRAIN: Good corticomedullary differentiation is seen. Reiterated diffuse cerebral atrophy and chronic microangiopathy. Chronic lacunes again identified at the bilateral basal ganglia. No suspicious extra-axial fluid collection is identified and the midline brain anatomy appears grossly nonfocal as imaged. No mass effect identified. VENTRICLES: Unremarkable. No hydrocephalus. CALVARIUM: Unremarkable. PARANASAL SINUSES: Unremarkable as visualized. No significant inflammatory changes. MASTOID AIR CELLS: Unremarkable as visualized. No inflammatory changes. OTHER FINDINGS: None. IMPRESSION: No definite acute intracranial findings by noncontrast C Age-related neuro degenerative findings are reiterated and remain somewhat more advanced than expected for the patient's stated age. Bilateral basal ganglia chronic lacunae reiterated as well. Follow-up CT or MRI are available as clinically warranted. Concordant preliminary report from [facility], 08/28/2018 2:06 a.m..
--- NOTE | 2018-08-28 08:06 | RAD ---
Date of service: 08/28/2018 PROCEDURE: CHEST RADIOGRAPH, 1 VIEW HISTORY: Code Stroke COMPARISON: 04/04/2018 FINDINGS: LUNGS: Clear. PLEURA: No pneumothorax or pleural fluid seen. CARDIOVASCULAR: No aortic atherosclerotic calcification present. Normal. OSSEOUS STRUCTURES: No significant abnormalities. VISUALIZED UPPER ABDOMEN: Normal. OTHER FINDINGS: None. IMPRESSION: No active disease.
--- NOTE | 2018-08-28 08:19 | CP.PCM.HP ---
<Jocelynn Bardales - Last Filed: 08/28/18 13:49> History of Present Illness - History of Present Illness History of Present Illness: Jocelynn Bardales DO, PGY-2: HPI for Dr. Berkowitz 78 year old female with a past medical history of CAD with stents, DM II, hypertension who presented to the ED last night with complaints of dizziness, weakness in the bilateral lower extremity, and isolated left MCP tenderness. She denies any fall, unilateral weakness or numbness, headache, nausea, vomiting, visual changes, alterations in taste or hearing. A code stroke was called in the ED with a NIH score of zero. The patient underwent a CT head which showed no definite acute intracranial findings by noncontrast CT. Age- related neuro degenerative findings are reiterated and remain somewhat more advanced than expected for the patient's stated age. Bilateral basal ganglia chronic lacunae reiterated as well. Follow-up CT or MRI are available as clinically warranted. Neurology was called and recommended aspirin and MRI of the head. At the time of my examination, the patient has no dizziness. Otherwise, 12 point review of system is unremarkable. PMH: CAD with stents, DM II, hypertension, osteoarthritis PSH: Hysterectomy Allergies: Denies Family history: DM II Social: Denies alcohol, tobacco, or illicit drug use Present on Admission - Present on Admission Any Indicators Present on Admission: No Review of Systems - Review of Systems All systems: reviewed and no additional remarkable complaints except (as per HPI) Past Patient History - Infectious Disease Hx of Infectious Diseases: None - Tetanus Immunizations Tetanus Immunization: >10 years Ago - Past Medical History & Family History Past Medical History?: Yes - Past Social History Smoking Status: Never Smoked - CARDIAC Hx Hypertension: Yes - PULMONARY Hx Respiratory Disorders: No - NEUROLOGICAL Hx Dizziness: Yes - HEENT Hx HEENT Problems: No - RENAL Hx Chronic Kidney Disease: No - ENDOCRINE/METABOLIC Hx Diabetes Mellitus Type 2: Yes - HEMATOLOGICAL/ONCOLOGICAL Hx Blood Disorders: No - INTEGUMENTARY Hx Dermatological Problems: No Other/Comment: old scars on knees from scrapes as a child - MUSCULOSKELETAL/RHEUMATOLOGICAL Hx Arthritis: Yes Hx Falls: No Hx Herniated Disk: Yes - GASTROINTESTINAL Hx Gastrointestinal Disorders: No - GENITOURINARY/GYNECOLOGICAL Hx Genitourinary Disorders: Yes - PSYCHIATRIC Hx Psychophysiologic Disorder: No Hx Substance Use: No - SURGICAL HISTORY Hx Coronary Stent: Yes Hx Hysterectomy: Yes - ANESTHESIA Hx Anesthesia: Yes Hx Anesthesia Reactions: No Hx Malignant Hyperthermia: No Meds Allergies/Adverse Reactions: Allergies Allergy/AdvReac Type Severity Reaction Status Date / Time No Known Allergies Allergy Verified 02/02/18 18:19 Physical Exam - Constitutional Appears: Well, Non-toxic - Head Exam Head Exam: ATRAUMATIC, NORMOCEPHALIC - Eye Exam Eye Exam: EOMI, Normal appearance - ENT Exam ENT Exam: Mucous Membranes Moist, Normal Oropharynx - Neck Exam Neck exam: Positive for: Normal Inspection - Respiratory Exam Respiratory Exam: Clear to Auscultation Bilateral, NORMAL BREATHING PATTERN. absent: Accessory Muscle Use - Cardiovascular Exam Cardiovascular Exam: RRR, +S1, +S2 - GI/Abdominal Exam GI & Abdominal Exam: Normal Bowel Sounds. absent: Guarding, Rebound - Extremities Exam Extremities exam: Positive for: normal inspection. Negative for: calf tenderness - Neurological Exam Neurological exam: Alert, CN II-XII Intact, Oriented x3, Reflexes Normal - Psychiatric Exam Psychiatric exam: Normal Affect, Normal Mood - Skin Skin Exam: Dry, Intact, Normal Color, Warm Results - Vital Signs Recent Vital Signs: Last Vital Signs Temp 97.8 F 08/28/18 05:48 Pulse 62 08/28/18 05:48 Resp 19 08/28/18 05:48 BP 118/65 08/28/18 05:48 Pulse Ox 99 08/28/18 05:48 - Labs Result Diagrams: 08/28/18 02:02 08/28/18 02:02 Labs: Laboratory Results - last 24 hr 08/28/18 08/28/18 08/28/18 01:41 02:02 02:02 WBC 8.0 RBC 4.07 Hgb 11.3 L Hct 35.0 L MCV 86.0 MCH 27.8 MCHC 32.3 RDW 13.4 Plt Count 271 MPV 11.2 H Gran % 72.8 H Lymph % (Auto) 19.[address] [place] % (Auto) 6.4 H Eos % (Auto) 1.2 L Baso % (Auto) 0.4 Gran # 5.84 Lymph # (Auto) 1.5 [place] # (Auto) 0.5 Eos # (Auto) 0.1 Baso # (Auto) 0.03 PT 10.8 INR 0.95 APTT 29.9 Sodium Potassium Chloride Carbon Dioxide Anion Gap BUN Creatinine Est GFR ( Amer) Est GFR (Non-Af Amer) Random Glucose Calcium Total Bilirubin AST ALT Alkaline Phosphatase Troponin I Total Protein Albumin Globulin Albumin/Globulin Ratio Triglycerides Cholesterol LDL Cholesterol Direct HDL Cholesterol Urine Color Urine Appearance Urine pH Ur Specific [place] Urine Protein Urine Glucose (UA) Urine Ketones Urine Blood Urine Nitrate Urine Bilirubin Urine Urobilinogen Ur Leukocyte Esterase Blood Type O POSITIVE Antibody Screen Negative BBK History Checked No verified bt 08/28/18 08/28/18 02:02 02:29 WBC RBC Hgb Hct MCV MCH MCHC RDW Plt Count MPV Gran % Lymph % (Auto) [place] % (Auto) Eos % (Auto) Baso % (Auto) Gran # Lymph # (Auto) [place] # (Auto) Eos # (Auto) Baso # (Auto) PT INR APTT Sodium 141 Potassium 4.1 Chloride 104 Carbon Dioxide 27 Anion Gap 15 BUN 56 H Creatinine 1.9 H Est GFR ( Amer) 31 Est GFR (Non-Af Amer) 26 Random Glucose 84 Calcium 9.6 Total Bilirubin 0.4 AST 44 H D ALT 25 Alkaline Phosphatase 77 Troponin I 0.01 Total Protein 7.9 Albumin 4.4 Globulin 3.5 Albumin/Globulin Ratio 1.2 Triglycerides 154 Cholesterol 154 LDL Cholesterol Direct 62 HDL Cholesterol 41 Urine Color Straw Urine Appearance Clear Urine pH 6.5 Ur Specific [place] <= 1.005 Urine Protein Negative Urine Glucose (UA) Negative Urine Ketones Negative Urine Blood Negative Urine Nitrate Negative Urine Bilirubin Negative Urine Urobilinogen 0.2 Ur Leukocyte Esterase Negative Blood Type Antibody Screen BBK History Checked - EKG Data EKG Interpreted by: Myself EKG shows normal: Sinus rhythm Rate: Normal - EKG Data When Compared to Previous EKG: No Significant Change - Impressions Impression: RBBB, good R wave progression, no ST-T wave changes suggestive of acute ischemia Assessment & Plan - Assessment and Plan (Free Text) Assessment: 78 year old female with a past medical history of CAD with stents, hypertension, DM II, and osteoarthritis who presented with transient dizziness and complaints of lower extremity weakness that have now resolved. MRI of the brain shows severe chronic microvascular changes are seen in the periventricular white matte r. There is atrophy of the corpus callosum. No acute intracranial findings. Cardiology and neurology are consulted. Plan: 1) Possible TIA - Monitor on telemetry for possible arrthymogenic activty - EKG shows NSR with RBBB, no evidence of active ischemia - Continue Aspirin - MRI shows severe chronic microvascular changes are seen in the periventricular white matter. There is atrophy of the corpus callosum. No acute intracranial findings. - Neurology consulted - Continue with statin - Physical and Occupational Therapy ordered 2) CAD - Clopidogrel 75 mg Daily - Imdur 60 mg Daily - Metoprolol Succinate 100 mg daily - Atorvastatin 40 mg HS - Lisinopril 20 mg Daily - Cardiology consulted, Dr. Benson/Adi 3) Hypertension - Lisinopril 20 mg - Amlodipine 5 mg 4) DM II - Humalin 10 mg SC HS - Humalin 20 SC 10:00 - Hypoglycemia protocol instituted 5) DVT/GI prophylaxis - SCD - Not indicated Case reviewed and discussed with attending physician, Dr. Berkowitz - Date & Time Date: 08/28/18 Time: 07:45 <Jose Berkowitz - Last Filed: 08/28/18 17:24> Results - Vital Signs Recent Vital Signs: Last Vital Signs Temp 98.5 F 08/28/18 12:00 Pulse 85 08/28/18 14:00 Resp 20 08/28/18 12:00 BP 141/73 08/28/18 12:00 Pulse Ox 99 08/28/18 05:48 - Labs Result Diagrams: 08/28/18 02:02 08/28/18 02:02 Labs: Laboratory Results - last 24 hr 08/28/18 08/28/18 08/28/18 01:41 02:01 02:02 WBC 8.0 RBC 4.07 Hgb 11.3 L Hct 35.0 L MCV 86.0 MCH 27.8 MCHC 32.3 RDW 13.4 Plt Count 271 MPV 11.2 H Gran % 72.8 H Lymph % (Auto) 19.[address] [place] % (Auto) 6.4 H Eos % (Auto) 1.2 L Baso % (Auto) 0.4 Gran # 5.84 Lymph # (Auto) 1.5 [place] # (Auto) 0.5 Eos # (Auto) 0.1 Baso # (Auto) 0.03 PT INR APTT Sodium Potassium Chloride Carbon Dioxide Anion Gap BUN Creatinine Est GFR ( Amer) Est GFR (Non-Af Amer) POC Glucose (mg/dL) 75 Random Glucose Hemoglobin A1c Calcium Total Bilirubin AST ALT Alkaline Phosphatase Troponin I Total Protein Albumin Globulin Albumin/Globulin Ratio Triglycerides Cholesterol LDL Cholesterol Direct HDL Cholesterol Urine Color Urine Appearance Urine pH Ur Specific [place] Urine Protein Urine Glucose (UA) Urine Ketones Urine Blood Urine Nitrate Urine Bilirubin Urine Urobilinogen Ur Leukocyte Esterase Blood Type O POSITIVE Antibody Screen Negative BBK History Checked No verified bt 08/28/18 08/28/18 08/28/18 02:02 02:02 02:02 WBC RBC Hgb Hct MCV MCH MCHC RDW Plt Count MPV Gran % Lymph % (Auto) [place] % (Auto) Eos % (Auto) Baso % (Auto) Gran # Lymph # (Auto) [place] # (Auto) Eos # (Auto) Baso # (Auto) PT 10.8 INR 0.95 APTT 29.9 Sodium 141 Potassium 4.1 Chloride 104 Carbon Dioxide 27 Anion Gap 15 BUN 56 H Creatinine 1.9 H Est GFR ( Amer) 31 Est GFR (Non-Af Amer) 26 POC Glucose (mg/dL) Random Glucose 84 Hemoglobin A1c 7.2 H Calcium 9.6 Total Bilirubin 0.4 AST 44 H D ALT 25 Alkaline Phosphatase 77 Troponin I 0.01 Total Protein 7.9 Albumin 4.4 Globulin 3.5 Albumin/Globulin Ratio 1.2 Triglycerides 154 Cholesterol 154 LDL Cholesterol Direct 62 HDL Cholesterol 41 Urine Color Urine Appearance Urine pH Ur Specific [place] Urine Protein Urine Glucose (UA) Urine Ketones Urine Blood Urine Nitrate Urine Bilirubin Urine Urobilinogen Ur Leukocyte Esterase Blood Type Antibody Screen BBK History Checked 08/28/18 08/28/18 08/28/18 02:29 07:29 10:20 WBC RBC Hgb Hct MCV MCH MCHC RDW Plt Count MPV Gran % Lymph % (Auto) [place] % (Auto) Eos % (Auto) Baso % (Auto) Gran # Lymph # (Auto) [place] # (Auto) Eos # (Auto) Baso # (Auto) PT INR APTT Sodium Potassium Chloride Carbon Dioxide Anion Gap BUN Creatinine Est GFR ( Amer) Est GFR (Non-Af Amer) POC Glucose (mg/dL) 97 Random Glucose Hemoglobin A1c Calcium Total Bilirubin AST ALT Alkaline Phosphatase Troponin I < 0.01 Total Protein Albumin Globulin Albumin/Globulin Ratio Triglycerides Cholesterol LDL Cholesterol Direct HDL Cholesterol Urine Color Straw Urine Appearance Clear Urine pH 6.5 Ur Specific [place] <= 1.005 Urine Protein Negative Urine Glucose (UA) Negative Urine Ketones Negative Urine Blood Negative Urine Nitrate Negative Urine Bilirubin Negative Urine Urobilinogen 0.2 Ur Leukocyte Esterase Negative Blood Type Antibody Screen BBK History Checked 08/28/18 08/28/18 11:50 16:10 WBC RBC Hgb Hct MCV MCH MCHC RDW Plt Count MPV Gran % Lymph % (Auto) [place] % (Auto) Eos % (Auto) Baso % (Auto) Gran # Lymph # (Auto) [place] # (Auto) Eos # (Auto) Baso # (Auto) PT INR APTT Sodium Potassium Chloride Carbon Dioxide Anion Gap BUN Creatinine Est GFR ( Amer) Est GFR (Non-Af Amer) POC Glucose (mg/dL) 213 H 148 H Random Glucose Hemoglobin A1c Calcium Total Bilirubin AST ALT Alkaline Phosphatase Troponin I Total Protein Albumin Globulin Albumin/Globulin Ratio Triglycerides Cholesterol LDL Cholesterol Direct HDL Cholesterol Urine Color Urine Appearance Urine pH Ur Specific [place] Urine Protein Urine Glucose (UA) Urine Ketones Urine Blood Urine Nitrate Urine Bilirubin Urine Urobilinogen Ur Leukocyte Esterase Blood Type Antibody Screen BBK History Checked Assessment & Plan - Assessment and Plan (Free Text) Plan: Pt seen and examined. I have reviewed the note of the phlebotomist medical lab assistant and agree with it. I have discussed the assessment and plan with the resident. I have reviewed the patient's labs and medications. Pt with dizziness and not TIA. She is on Clopidogrel. Pt will continue with Metoprolol for her CAD. She is on Lisinopril for HTN. DM-2 will be controlled with insulin and will also need ISS with coverage. MRI and CT of the head has been reviewed. Will get Cardiology evaluation. Will most likely need f/u with Cardiology as outpt.
[2018-08-28] MEDS ORDERED: Metoprolol Succinate 100 mg XL Tab PO SCH (10:00)
--- NOTE | 2018-08-28 10:45 | MRI ---
Date of service: 08/28/2018 PROCEDURE: MRI BRAIN WITHOUT CONTRAST HISTORY: TIA COMPARISON: None available. TECHNIQUE: Multiplanar, multisequence MR images of the brain were obtained without intravenous contrast enhancement. FINDINGS: HEMORRHAGE: None DWI: No evidence of an acute or early subacute infarction. BRAIN PARENCHYMA: No mass effect or edema. Severe chronic microvascular changes are seen in the periventricular white matter. There is atrophy of the corpus callosum VENTRICLES: Unremarkable. No hydrocephalus. CRANIUM: Unremarkable. ORBITS: Grossly unremarkable. PARANASAL SINUSES/MASTOIDS: Clear VASCULAR SYSTEM: Skull base flow voids intact. OTHER FINDINGS: None. IMPRESSION: Severe chronic microvascular changes are seen in the periventricular white matter. There is atrophy of the corpus callosum No acute intracranial findings.
[2018-08-28] MEDS ORDERED: Dextrose 50% SYRINGE Inj (50 ml) IV PRN (11:24)
--- NOTE | 2018-08-28 11:30 | CARD ---
APPROVED REPORT Date of service: 08/28/2018 EKG Measurement Heart [id number] <Conclusion> Normal sinus rhythm Right bundle branch block Inferior infarct, age undetermined Abnormal ECG
[2018-08-28 13:36] VITALS: BP 141/73; RESP 20; TEMP 98.5
--- NOTE | 2018-08-28 14:38 | CON ---
DATE: 08/28/2018 REASON FOR CONSULTATION: Dizziness, lightheadedness. HISTORY OF PRESENT ILLNESS: This is a 78-year-old woman, known to me, admitted through the emergency room early this morning with a complaint of dizziness and lightheadedness, which occurred suddenly during the night associated with discomfort in her left arm. Her symptoms have resolved, and she feels well today stating that she is ready to go home. There is no typical chest pain, shortness of breath, orthopnea, PND, syncope, vertigo, palpitation, edema, claudication, fever, chills, cough, sputum production, hemoptysis, abdominal pain, nausea, vomiting, diarrhea, constipation, or melena. PAST MEDICAL HISTORY: Her past medical history is notable for coronary artery disease with multiple coronary interventions, diabetes, hypertension, hyperlipidemia, chronic renal insufficiency, carotid endarterectomy, status post hysterectomy, and chronic right bundle-branch block. There is no history of rheumatic fever, congestive heart failure, arrhythmia, or gout. MEDICATIONS: At the time of admission include aspirin, insulin, hydrochlorothiazide, Imdur, metoprolol, Plavix, Zocor. ALLERGIES: THERE ARE NO MEDICATION ALLERGIES REPORTED. SOCIAL HISTORY: She is . She lives at home. She is ambulatory, but limited. She does not smoke. She does not drink. FAMILY HISTORY: Noncontributory. REVIEW OF SYSTEMS: A 10-point review of systems otherwise unremarkable except as noted above. PHYSICAL EXAMINATION: GENERAL: She is a well-developed elderly woman, in no acute distress, lying in bed, on telemetry. VITAL SIGNS: Notable for sinus rhythm, 61-71 beats per minute. She is afebrile. Blood pressure 118/65, respirations 98-99% on room air. HEENT: Exam reveals no neck vein distention, thyromegaly, carotid bruit. Mucous membranes moist. Conjunctivae pink. NECK: Supple. LUNGS: Lung mclaughlin clear throughout. CARDIOVASCULAR: Examination of the heart revealed normal first and second heart sounds. ABDOMEN: Soft. Bowel sounds present. No mass, organomegaly, tenderness, rebound, or guarding. No CVA tenderness. No palpable abdominal aortic aneurysm. EXTREMITIES: Extremity exam revealed no cyanosis, clubbing or edema. NEUROLOGICAL: Awake, alert and oriented. PSYCHIATRIC: Normal as to mood and affect. SKIN: Warm and dry. No rash or cellulitis. LABORATORY AND IMAGING STUDIES: Chest x-ray reveals no active disease. CT scan of the head is noted. No definite acute intracranial findings, age-related neurodegenerative findings, and lacunae, see full report. An MRI of the brain is pending. White count normal, hemoglobin 11.3, hematocrit 35, platelet count normal. PT/INR, PTT unremarkable. Electrolytes unremarkable. BUN 56, creatinine 1.9, blood sugar 84. LFTs unremarkable except for a mildly elevated AST, troponin 0.01. Cholesterol 154, triglycerides 154, LDL 62, HDL 41. Urinalysis unremarkable. IMPRESSION: Daniela Salazar, 78-year-old woman, with an acute episode of dizziness, which was not vertigo, associated with left arm discomfort. All symptoms have resolved, and she feels well this morning. She is undergoing a neurologic evaluation. Brain MRI is pending. I will review EKG, which is not yet in the system, apparently it was unremarkable. I will order a troponin this morning. We could check postural vital signs. We could continue her current medications, which include aspirin, Imdur, Lipitor in place of Zocor, Plavix, and metoprolol. She is getting lisinopril. She can be out of bed. I will follow along with you. I will make additional recommendations based on her clinical course. Corbin Benson MD MTDMariza
[2018-08-28] MEDS ORDERED: Lidocaine 5% Oint(35 gm) TOP ONE (15:39)
[2018-08-28 15:43] VITALS: PULSE 85
--- NOTE | 2018-08-28 16:23 | CP.PCM.DIS ---
<Jocelynn Bardales - Last Filed: 08/28/18 18:12> Provider - Provider Date of Admission: 08/28/18 03:46 Attending physician: Jose Berkowitz MD Primary care physician: Tamara Zaidi MD Consults: Dr. Marcelino Paredes Time Spent in preparation of Discharge (in minutes): 35 Hospital Course - Lab Results Lab Results: Most Recent Lab Values WBC 8.0 10^3/uL (4.5-11.0) 08/28/18 02:02 RBC 4.07 10^6/uL (3.5-6.1) 08/28/18 02:02 Hgb 11.3 g/dL (12.0-16.0) L 08/28/18 02:02 Hct 35.0 % (36.0-48.0) L 08/28/18 02:02 MCV 86.0 fl (80.0-105.0) 08/28/18 02:02 MCH 27.8 pg (25.0-35.0) 08/28/18 02:02 MCHC 32.3 g/dl (31.0-37.0) 08/28/18 02:02 RDW 13.4 % (11.5-14.5) 08/28/18 02:02 Plt Count 271 10^3/uL (120.0-450.0) 08/28/18 02:02 MPV 11.2 fl (7.0-11.0) H 08/28/18 02:02 Gran % 72.8 % (50.0-68.0) H 08/28/18 02:02 Lymph % (Auto) 19.2 % (22.0-35.0) L 08/28/18 02:02 [place] % (Auto) 6.4 % (1.0-6.0) H 08/28/18 02:02 Eos % (Auto) 1.2 % (1.5-5.0) L 08/28/18 02:02 Baso % (Auto) 0.4 % (0.0-3.0) 08/28/18 02:02 Gran # 5.84 (1.4-6.5) 08/28/18 02:02 Lymph # (Auto) 1.5 (1.2-3.4) 08/28/18 02:02 [place] # (Auto) 0.5 (0.1-0.6) 08/28/18 02:02 Eos # (Auto) 0.1 (0.0-0.7) 08/28/18 02:02 Baso # (Auto) 0.03 K/mm3 (0.0-2.0) 08/28/18 02:02 PT 10.8 SECONDS (9.4-12.5) 08/28/18 02:02 INR 0.95 08/28/18 02:02 APTT 29.9 Seconds (25.1-36.5) 08/28/18 02:02 Sodium 141 mmol/L (132-148) 08/28/18 02:02 Potassium 4.1 mmol/L (3.6-5.0) 08/28/18 02:02 Chloride 104 mmol/L (98-107) 08/28/18 02:02 Carbon Dioxide 27 mmol/L (21-33) 08/28/18 02:02 Anion Gap 15 (10-20) 08/28/18 02:02 BUN 56 mg/dL (7-21) H 08/28/18 02:02 Creatinine 1.9 mg/dl (0.7-1.2) H 08/28/18 02:02 Est GFR ( Amer) 31 08/28/18 02:02 Est GFR (Non-Af Amer) 26 08/28/18 02:02 POC Glucose (mg/dL) 148 mg/dL (65-110) H 08/28/18 16:10 Random Glucose 84 mg/dL (70-110) 08/28/18 02:02 Hemoglobin A1c 7.2 % (4.2-6.5) H 08/28/18 02:02 Calcium 9.6 mg/dL (8.4-10.5) 08/28/18 02:02 Total Bilirubin 0.4 mg/dL (0.2-1.3) 08/28/18 02:02 AST 44 U/L (14-36) H D 08/28/18 02:02 ALT 25 U/L (7-56) 08/28/18 02:02 Alkaline Phosphatase 77 U/L (38-126) 08/28/18 02:02 Troponin I < 0.01 ng/mL 08/28/18 10:20 Total Protein 7.9 g/dL (5.8-8.3) 08/28/18 02:02 Albumin 4.4 g/dL (3.0-4.8) 08/28/18 02:02 Globulin 3.5 gm/dL 08/28/18 02:02 Albumin/Globulin Ratio 1.2 (1.1-1.8) 08/28/18 02:02 Triglycerides 154 mg/dL (35-160) 08/28/18 02:02 Cholesterol 154 mg/dL (130-200) 08/28/18 02:02 LDL Cholesterol Direct 62 mg/dL (0-129) 08/28/18 02:02 HDL Cholesterol 41 mg/dL (29-60) 08/28/18 02:02 Urine Color Straw (YELLOW) 08/28/18 02:29 Urine Appearance Clear (CLEAR) 08/28/18 02:29 Urine pH 6.5 (4.7-8.0) 08/28/18 02:29 Ur Specific [place] <= 1.005 (1.005-1.035) 08/28/18 02:29 Urine Protein Negative mg/dL (<30 mg/dL) 08/28/18 02:29 Urine Glucose (UA) Negative mg/dL (NEGATIVE) 08/28/18 02:29 Urine Ketones Negative mg/dL (NEGATIVE) 08/28/18 02:29 Urine Blood Negative (NEGATIVE) 08/28/18 02:29 Urine Nitrate Negative (NEGATIVE) 08/28/18 02:29 Urine Bilirubin Negative (NEGATIVE) 08/28/18 02:29 Urine Urobilinogen 0.2 E.U./dL (<1 E.U./dL) 08/28/18 02:29 Ur Leukocyte Esterase Negative Jeremias/uL (NEGATIVE) 08/28/18 02:29 Blood Type O POSITIVE 08/28/18 01:41 Antibody Screen Negative 08/28/18 01:41 BBK History Checked No verified bt 08/28/18 01:41 - Hospital Course Hospital Course: 78 year old female with a past medical history of CAD with stents, DM II, hypertension who presented to the ED last night with complaints of dizziness, weakness in the bilateral lower extremity, and isolated left MCP tenderness. She denies any fall, unilateral weakness or numbness, headache, nausea, vomiting, visual changes, alterations in taste or hearing. A code stroke was called in the ED with a NIH score of zero. The patient underwent a CT head which showed no definite acute intracranial findings by noncontrast CT. Age- related neuro degenerative findings are reiterated and remain somewhat more advanced than expected for the patient's stated age. Bilateral basal ganglia chronic lacunae reiterated as well. Follow-up CT or MRI are available as clinically warranted. Neurology was called and recommended aspirin and MRI of the head which showed severe chronic microvascular changes are seen in the periventricular white matter. There is atrophy of the corpus callosum.Neurology, Dr. Ron Paredes saw the patient and asked for her to follow up in the office as an outpatient. Dr. Benson also saw the patient and made no recommendations. The patient was monitored on telemetry and no arrhythmogenic activity was noted. Her initial EKG shows NSR with RBBB, no evidence of active ischemia. During the course of the patient's hospital stay her blood pressure was observed to be 140 and above systolic and hence she was discharged with an increase in her Amlodipine from 5 mg daily to 10 mg daily. For the patient's left Carpal metacar pal joint tenderness, 5% topical lidocaine was applied. She will follow up with Dr. Ron Paredes as an outpatient as well as her PMD, Dr. Zaidi. - Date & Time of H&P Date of H&P: 08/28/18 Time of H&P: 18:18 Discharge Exam - Head Exam Head Exam: ATRAUMATIC, NORMOCEPHALIC - Eye Exam Eye Exam: EOMI, Normal appearance - ENT Exam ENT Exam: Mucous Membranes Moist - Neck Exam Neck exam: Normal Inspection - Respiratory Exam Respiratory Exam: Clear to PA & Lateral, NORMAL BREATHING PATTERN. absent: Accessory Muscle Use - Cardiovascular Exam Cardiovascular Exam: RRR, +S1, +S2 - GI/Abdominal Exam GI & Abdominal Exam: Normal Bowel Sounds. absent: Distended - Extremities Exam Extremities exam: normal inspection - Neurological Exam Neurological exam: Alert, CN II-XII Intact, Oriented x3 - Psychiatric Exam Psychiatric exam: Normal Affect, Normal Mood - Skin Skin Exam: Dry, Intact, Normal Color, Warm Discharge Plan - Discharge Medications Prescriptions: RX: amLODIPine [Norvasc] 5 mg PO DAILY #30 tab - Follow Up Plan Condition: STABLE Disposition: HOME/ ROUTINE Instructions: Transient Ischemic Attack (DC), Vertigo (a Type of Dizziness) (DC), Diabetes Diet , Hypertension (DC), Hypertension (GEN) Additional Instructions: 1) Patient to follow up with Dr. Ron Paredes in two weeks. 2) Please continue to take all your medications, as before. 3) One medication, Amlodipine 5 mg will be added to your medical regimen. You are already taking 5 mg of Amlodipine in the medication that you take "Lotrel." You will now be taking a total of 10 mg of Amlodipine for your blood pressure, each day. 4) Please follow up with you primary medical doctor within one week of your day of discharge. 5. If symptoms return or worsen, please report to nearest emergency department or call 911 Referrals: Tamara Zaidi MD [Primary Care Provider] - Ron Paredes MD [Staff Provider] - <Jose Berkowitz - Last Filed: 08/28/18 20:50> Provider - Provider Date of Admission: 08/28/18 03:46 Attending physician: Jose Berkowitz MD Primary care physician: Tamara Zaidi MD Hospital Course - Lab Results Lab Results: Most Recent Lab Values WBC 8.0 10^3/uL (4.5-11.0) 08/28/18 02:02 RBC 4.07 10^6/uL (3.5-6.1) 08/28/18 02:02 Hgb 11.3 g/dL (12.0-16.0) L 08/28/18 02:02 Hct 35.0 % (36.0-48.0) L 08/28/18 02:02 MCV 86.0 fl (80.0-105.0) 08/28/18 02:02 MCH 27.8 pg (25.0-35.0) 08/28/18 02:02 MCHC 32.3 g/dl (31.0-37.0) 08/28/18 02:02 RDW 13.4 % (11.5-14.5) 08/28/18 02:02 Plt Count 271 10^3/uL (120.0-450.0) 08/28/18 02:02 MPV 11.2 fl (7.0-11.0) H 08/28/18 02:02 Gran % 72.8 % (50.0-68.0) H 08/28/18 02:02 Lymph % (Auto) 19.2 % (22.0-35.0) L 08/28/18 02:02 [place] % (Auto) 6.4 % (1.0-6.0) H 08/28/18 02:02 Eos % (Auto) 1.2 % (1.5-5.0) L 08/28/18 02:02 Baso % (Auto) 0.4 % (0.0-3.0) 08/28/18 02:02 Gran # 5.84 (1.4-6.5) 08/28/18 02:02 Lymph # (Auto) 1.5 (1.2-3.4) 08/28/18 02:02 [place] # (Auto) 0.5 (0.1-0.6) 08/28/18 02:02 Eos # (Auto) 0.1 (0.0-0.7) 08/28/18 02:02 Baso # (Auto) 0.03 K/mm3 (0.0-2.0) 08/28/18 02:02 PT 10.8 SECONDS (9.4-12.5) 08/28/18 02:02 INR 0.95 08/28/18 02:02 APTT 29.9 Seconds (25.1-36.5) 08/28/18 02:02 Sodium 141 mmol/L (132-148) 08/28/18 02:02 Potassium 4.1 mmol/L (3.6-5.0) 08/28/18 02:02 Chloride 104 mmol/L (98-107) 08/28/18 02:02 Carbon Dioxide 27 mmol/L (21-33) 08/28/18 02:02 Anion Gap 15 (10-20) 08/28/18 02:02 BUN 56 mg/dL (7-21) H 08/28/18 02:02 Creatinine 1.9 mg/dl (0.7-1.2) H 08/28/18 02:02 Est GFR ( Amer) 31 08/28/18 02:02 Est GFR (Non-Af Amer) 26 08/28/18 02:02 POC Glucose (mg/dL) 148 mg/dL (65-110) H 08/28/18 16:10 Random Glucose 84 mg/dL (70-110) 08/28/18 02:02 Hemoglobin A1c 7.2 % (4.2-6.5) H 08/28/18 02:02 Calcium 9.6 mg/dL (8.4-10.5) 08/28/18 02:02 Total Bilirubin 0.4 mg/dL (0.2-1.3) 08/28/18 02:02 AST 44 U/L (14-36) H D 08/28/18 02:02 ALT 25 U/L (7-56) 08/28/18 02:02 Alkaline Phosphatase 77 U/L (38-126) 08/28/18 02:02 Troponin I < 0.01 ng/mL 08/28/18 10:20 Total Protein 7.9 g/dL (5.8-8.3) 08/28/18 02:02 Albumin 4.4 g/dL (3.0-4.8) 08/28/18 02:02 Globulin 3.5 gm/dL 08/28/18 02:02 Albumin/Globulin Ratio 1.2 (1.1-1.8) 08/28/18 02:02 Triglycerides 154 mg/dL (35-160) 08/28/18 02:02 Cholesterol 154 mg/dL (130-200) 08/28/18 02:02 LDL Cholesterol Direct 62 mg/dL (0-129) 08/28/18 02:02 HDL Cholesterol 41 mg/dL (29-60) 08/28/18 02:02 Urine Color Straw (YELLOW) 08/28/18 02:29 Urine Appearance Clear (CLEAR) 08/28/18 02:29 Urine pH 6.5 (4.7-8.0) 08/28/18 02:29 Ur Specific [place] <= 1.005 (1.005-1.035) 08/28/18 02:29 Urine Protein Negative mg/dL (<30 mg/dL) 08/28/18 02:29 Urine Glucose (UA) Negative mg/dL (NEGATIVE) 08/28/18 02:29 Urine Ketones Negative mg/dL (NEGATIVE) 08/28/18 02:29 Urine Blood Negative (NEGATIVE) 08/28/18 02:29 Urine Nitrate Negative (NEGATIVE) 08/28/18 02:29 Urine Bilirubin Negative (NEGATIVE) 08/28/18 02:29 Urine Urobilinogen 0.2 E.U./dL (<1 E.U./dL) 08/28/18 02:29 Ur Leukocyte Esterase Negative Jeremias/uL (NEGATIVE) 08/28/18 02:29 Blood Type O POSITIVE 08/28/18 01:41 Antibody Screen Negative 08/28/18 01:41 BBK History Checked No verified bt 08/28/18 01:41 - Hospital Course Hospital Course: Pt seen and examined. I have reviewed the note of the medical record assistant and agree with it. I have discussed the assessment and plan with the resident. I have reviewed the patient's labs and medications. Pt with dizziness that has resoled. MRI has been ordered and I have reviewed it. EKG does not show ischemia. Sheis on Amlodipine for HTN. CT of the head was reviewed. Neuro and Cardio consult.
--- NOTE | 2018-08-28 20:27 | CON ---
DATE: 08/28/2018 HISTORY OF PRESENT ILLNESS: This is a 78-year-old female with a past medical history of diabetes, hypertension, coronary artery disease and hyperlipidemia, who came to the emergency room with lightheadedness and also felt dizzy and a painful sensation in the left arm. I was called to evaluate the patient. PAST MEDICAL HISTORY: Diabetes, hypertension and coronary artery disease. SOCIAL HISTORY: Does not smoke. Does not drink. ALLERGIES: NO KNOWN DRUG ALLERGIES. HOME MEDICATIONS: Metoprolol, aspirin, Plavix and Zocor. PHYSICAL EXAMINATION HEENT: Normocephalic and atraumatic. NECK: Supple. NEUROLOGIC: Alert and oriented x3. No aphasia. Cranial nerves II through XII were tested. Pupils reactive. EOM intact. Visual field full. No facial asymmetry. Tongue midline. Motor: Moves all the extremities equally. Tone normal. Deep tendon reflexes 1+. Both plantars are downgoing. Sensory appears intact. Cerebellar, gait deferred. IMPRESSION AND PLAN: A 78-year-old female who presented with lightheadedness and left arm pain. CAT scan of the head was done, which showed no bleed and no infarct. The patient is doing better now. Continue present medications. We will follow up. Ron Paredes MD
--- NOTE | 2018-08-28 20:47 | CARD ---
APPROVED REPORT Date of service: 08/28/2018 EKG Measurement Heart [id number] <Conclusion> Normal sinus rhythm Right bundle branch block Inferior infarct, age undetermined Abnormal ECG
[2018-08-28] MEDS ORDERED: SIMVASTATIN PO SCH (22:00)
[2018-08-28] MEDS ORDERED: Insulin Human NPH/Reg 70/30 Vial(3 ml) SC SCH (22:00)
[2018-08-29] MEDS ORDERED: Insulin Human NPH/Reg 70/30 Vial(3 ml) SC SCH (10:00)
== END 2018-08-28 19:02 | disposition home or self-care (01) ==
LOC: ED 01:00 → ERH 03:46 → 2RSO 04:43
PROVIDERS: ADMIT Internal Medicine Nephrology; ATTEND Internal Medicine Nephrology
DX: R42 Dizziness and giddiness (principal); I25.10 Atherosclerotic heart disease of native coronary artery without angina pectoris; E11.22 Type 2 diabetes mellitus with diabetic chronic kidney disease; E78.5 Hyperlipidemia, unspecified; I12.9 Hypertensive chronic kidney disease with stage 1 through stage 4 chronic kidney disease, or unspecified chronic kidney disease; I45.10 Unspecified right bundle-branch block; M79.602 Pain in left arm; N18.9 Chronic kidney disease, unspecified; Z90.710 Acquired absence of both cervix and uterus; Z95.5 Presence of coronary angioplasty implant and graft
CPT/HCPCS: 70450; 70551; 71045; 80053; 80061; 81003; 82948; 83036; 84484; 85025; 85610; 85730; 86850; 86900; 93005; 99285; G0378

== ENCOUNTER 2018-09-25 19:35 | Inpatient (IN) | payer MEDICARE, BC ==
[2018-09-25 20:15] LABS: HEMOGLOBIN 10.9 g/dL (12.0-16.0); MEAN CELL VOLUME 86.9 fl (80.0-105.0); MEAN CORPUSCULAR HEMOGLOBIN 28.1 pg (25.0-35.0); MEAN CORPUSCULAR HGB CONC 32.3 g/dl (31.0-37.0); MEAN PLATELET VOLUME 10.6 fl (7.0-11.0); RBC 3.88 10^6/uL (3.5-6.1); RED CELL DISTRIBUTION WIDTH 13.7 % (11.5-14.5); WHITE BLOOD COUNT 6.9 10^3/uL (4.5-11.0)
--- NOTE | 2018-09-25 20:21 | ED PDOC ---
Arrival/HPI - General Chief Complaint: Weakness/Neurological Deficit Time Seen by Provider: 09/25/18 19:42 Historian: Patient - History of Present Illness Narrative History of Present Illness (Text): 09/25/18 19:53 Daniela Salazar is a 78 year old female, whose past medical history includes CAD with coronary stents, diabetes, hyperlipidemia, hypertension, chronic renal insufficiency, and carotid endarterectomy, who presents to the ED brought in by EMS complaining of generalized malaise and generalized weakness. Patient also reports dizziness and feels near syncopal at times. Patient states she has not been feeling well and notes she feels "woozy" at times. Patient denies any chest pain, shortness of breath, nausea, vomiting, diarrhea, or any other complaints. Symptom Onset: Gradual Symptom Course: Unchanged Activities at Onset: Light Context: Home Past Medical History - Provider Review Nursing Documentation Reviewed: Yes - Infectious Disease Hx of Infectious Diseases: None - Tetanus Immunization Tetanus Immunization: >10 years Ago - Cardiac Hx Hypertension: Yes - Pulmonary Hx Respiratory Disorders: No - Neurological Hx Dizziness: Yes - HEENT Hx HEENT Disorder: No - Renal Hx Renal Disorder: No - Endocrine/Metabolic Hx Diabetes Mellitus Type 2: Yes - Hematological/Oncological Hx Blood Disorders: No - Integumentary Hx Dermatological Disorder: No Other/Comment: old scars on knees from scrapes as a child - Musculoskeletal/Rheumatological Hx Arthritis: Yes Hx Falls: No Hx Herniated Disk: Yes - Gastrointestinal Hx Gastrointestinal Disorders: No - Genitourinary/Gynecological Hx Genitourinary Disorders: Yes - Psychiatric Hx Psychophysiologic Disorder: No Hx Substance Use: No - Past Surgical History Past Surgical History: No Previous - Surgical History Hx Coronary Stent: Yes Hx Hysterectomy: Yes - Anesthesia Hx Anesthesia: Yes Hx Anesthesia Reactions: No Hx Malignant Hyperthermia: No - Suicidal Assessment Feels Threatened In Home Enviroment: No Family/Social History - Physician Review Nursing Documentation Reviewed: Yes Family/Social History: Unknown Family HX Smoking Status: Never Smoked Hx Alcohol Use: No Hx Substance Use: No Hx Substance Use Treatment: No Allergies/Home Meds Allergies/Adverse Reactions: Allergies No Known Allergies Allergy (Verified 02/02/18 18:19) Home Medications: Home Meds Medication Instructions Recorded Confirmed Isosorbide Mononitrate [Imdur] 60 mg PO DAILY 01/24/17 09/26/18 Metoprolol Succinate 100 mg PO DAILY 01/24/17 09/26/18 hydroCHLOROthiazide [Hydrodiuril] 25 tab PO DAILY 01/24/17 09/26/18 Aspirin [Ecotrin] 81 mg PO DAILY 01/28/17 09/26/18 Insulin Human NPH/Reg [HumuLIN 20 unit SQ BID 11/27/17 09/26/18 70/30 (NPH/Reg)] Clopidogrel [Plavix] 75 mg PO DAILY 11/30/17 09/26/18 Simvastatin [Zocor] 80 tab PO DAILY 08/28/18 09/26/18 Review of Systems - Physician Review All systems were reviewed & negative as marked: Yes - Review of Systems Constitutional: Other (+generalized weakness, +generalized malase). absent: Fevers Eyes: Normal ENT: Normal Respiratory: Normal. absent: SOB, Cough Cardiovascular: Syncope (+near-syncopal). absent: Chest Pain Gastrointestinal: Normal. absent: Abdominal Pain, Diarrhea, Nausea, Vomiting Genitourinary Female: Normal. absent: Dysuria, Frequency, Hematuria, Urine Output Changes Musculoskeletal: Normal Skin: Normal Neurological: Dizziness Endocrine: Normal Hemo/Lymphatic: Normal Psychiatric: Normal Physical Exam Vital Signs Reviewed: Yes Vital Signs Temp Pulse Resp BP Pulse Ox 09/25/18 19:36 97.6 F 85 18 177/75 H 98 Temperature: Afebrile Blood Pressure: Hypertensive Pulse: Regular Respiratory Rate: Normal Appearance: Positive for: Well-Appearing, Non-Toxic, Comfortable Pain Distress: None Mental Status: Positive for: Alert and Oriented X 3 - Systems Exam Head: Present: Atraumatic, Normocephalic Pupils: Present: PERRL Extroacular Muscles: Present: EOMI Conjunctiva: Present: Normal Mouth: Present: Moist Mucous Membranes Neck: Present: Normal Range of Motion. No: Meningeal Signs, MIDLINE TENDERNESS, Paraspinal Tenderness Respiratory/Chest: Present: Clear to Auscultation, Good Air Exchange. No: Respiratory Distress, Accessory Muscle Use Cardiovascular: Present: Regular Rate and Rhythm, Normal S1, S2. No: Murmurs Abdomen: No: Tenderness, Distention, Peritoneal Signs Back: Present: Normal Inspection. No: CVA Tenderness, Midline Tenderness, Paraspinal Tenderness Upper Extremity: Present: Normal Inspection. No: Cyanosis, Edema Lower Extremity: Present: Normal Inspection. No: Edema Neurological: Present: GCS=15, CN II-XII Intact, Speech Normal, Motor Func Grossly Intact, Normal Sensory Function, Normal Cerebellar Funct, Memory Normal Skin: Present: Warm, Dry, Normal Color. No: Rashes Psychiatric: Present: Alert, Oriented x 3, Normal Insight, Normal Concentration Medical Decision Making ED Course and Treatment: 09/25/18 19:53 Impression: 78 year old female complaining of generalized malaise, generalized weakness, dizziness, and near-syncope. Plan: -- CT Head w/o contrast -- EKG -- CXR -- Labs, cardiac enzymes -- Reassess and disposition Prior Visits: Notes and results from previous visits were reviewed. Progress Notes: Reviewed EKG, NSR at 77 bpm. RBBB. Inferior infarct. Non-specific ST/T wave changes. 09/25/18 23:35 Chest X-ray reviewed, shows no acute processes. 09/26/18 00:24 CT Head: Prominent meningeal calcifications are noted, chronic. There is normal configuration of sella turcica. There are no intra or extra- axial collections. There is no mass effect or midline shift. There is no evidence of hematoma formation. No hydrocephalus is present. The ventricles are symmetrical. No abnormal calcifications are present. There is diffuse age-appropriate cerebellar and cerebral atrophy with proportionally dilated ventricles and cortical sulci. There are bilateral periventricular and subcortical white matter hypolucencies compatible with mild chronic microvascular disease. Otherwise, no significant focal abnormalities are seen either in the posterior fossa or supratentorial compartment. IMPRESSION: 1. Age-appropriate cerebellar and cerebral atrophy. 2. Mild chronic microvascular disease. 3. No evidence of acute intracranial pathology. Electronically signed on Sep 26, 2018 12:20:40 AM EST by: Grace Davila M.D., Certified by ABR, MSK, Neuroradiology 09/26/18 00:[address] Berkowitz, who is aware and agrees with plan. Accepts pt in to his service. Pt will go to Telemetry observation for near-syncope. - Lab Interpretations I have reviewed the lab results: Yes - RAD Interpretation Radiology Orders: 09/25/18 19:53 HEAD W/O CONTRAST [CT] Stat CHEST PORTABLE [RAD] Stat Gopherman: ED Physician, Radiologist - EKG Interpretation Interpreted by ED Physician: Yes Type: 12 lead EKG - Scribe Statement The provider has reviewed the documentation as recorded by the Scribe Shandra Paula All medical record entries made by the Scribe were at my direction and personally dictated by me. I have reviewed the chart and agree that the record accurately reflects my personal performance of the history, physical exam, medical decision making, and the department course for this patient. I have also personally directed, reviewed, and agree with the discharge instructions and disposition. Disposition/Present on Arrival - Present on Arrival Any Indicators Present on Arrival: No History of DVT/PE: No History of Uncontrolled Diabetes: No Urinary Catheter: No History of Decub. Ulcer: No History Surgical Site Infection Following: None - Disposition Have Diagnosis and Disposition been Completed?: Yes Diagnosis: Near syncope Disposition: HOSPITALIZED Disposition Time: 00:50 Condition: GOOD
[2018-09-25 20:23] LABS: INR 0.97; PARTIAL THROMBOPLASTIN TIME 34.9 Seconds (25.1-36.5)
[2018-09-25 20:42] LABS: TROPONIN I 0.01 ng/mL
[2018-09-25 20:43] LABS: ALB/GLOB RATIO 1.2 (1.1-1.8); CALCIUM 9.1 mg/dL (8.4-10.5)
[2018-09-26 03:34] VITALS: BMI 27.1
--- NOTE | 2018-09-26 06:42 | CP.PCM.HP ---
<VaughnJosé alexander - Last Filed: 09/26/18 15:23> History of Present Illness - History of Present Illness History of Present Illness: H&P for Dr. Berkowitz Service CC: Leg weakness, malaise, near-syncope This is a 78 yo F with PMH of CAD s/p multiple stents, DM, HTN, HLD, CKD Stage IIIb, and hx CEA who presented with complaint of malaise and weakness for approximately 24 hrs and sensation of "legs giving out from under her" acutely overnight. As per patient, she has been feeling unwell throughout the day yesterday, but it became acutely worsened last evening when she went to use her bathroom. She reports sensation of pressure, but no pain, when urinating, and then after standing up, became dizzy, "whoozy," and was concerned that she would fall. She made it to her couch without falling, called for family to bring her to the hospital. Denies loss of consciousness, fall, head trauma, vision changes, room spinning, hematuria, straining to urinate, constipation, dysuria, diarrhea, emesis, fevers, chills. Does admit to nausea, but denies emesis, and reports tolerating normal daily PO intake yesterday as well. Of note, patient also reports recent episode of dizziness for which she says she was seen at [facility], and had changes to her antihypertensive medications. She reports facial and oral swelling with the med change, which was changes again at her PMD's office (Dr. Zaidi) 1 week ago. Patient unable to state which meds she was on or what she was changed to in the last 2 weeks. Description strongly suspicious for angioedema. Of note, workup in the ED included a Head CT which was negative for any acute intracranial processes, and an EKG which was notable for NSR at 77bpm with a RBBB (which is longstanding, seen on the last 3 most recent EKGs in the EMR). 12-system ROS reviewed and negative, except as above. PMH: as above PSH: CEA, Hysterectomy Fam Hx: pt unsure about parents, 1 sister with DM Soc Hx: denies tobacco, alcohol, illicits PMD: Dr. Zaidi Present on Admission - Present on Admission Any Indicators Present on Admission: No History of DVT/PE: No History of Uncontrolled Diabetes: No Review of Systems - Review of Systems All systems: reviewed and no additional remarkable complaints except (as per HPI) Past Patient History - Infectious Disease Hx of Infectious Diseases: None - Tetanus Immunizations Tetanus Immunization: >10 years Ago - Past Medical History & Family History Past Medical History?: Yes - Past Social History Smoking Status: Never Smoked - CARDIAC Hx Cardiac Disorders: Yes Hx Hypertension: Yes - PULMONARY Hx Respiratory Disorders: No - NEUROLOGICAL Hx Neurological Disorder: Yes Hx Dizziness: Yes - HEENT Hx HEENT Problems: No (wears glasses) - RENAL Hx Chronic Kidney Disease: No - ENDOCRINE/METABOLIC Hx Endocrine Disorders: Yes Hx Diabetes Mellitus Type 2: Yes - HEMATOLOGICAL/ONCOLOGICAL Hx Blood Disorders: No - INTEGUMENTARY Hx Dermatological Problems: No Other/Comment: old scars on knees from scrapes as a child - MUSCULOSKELETAL/RHEUMATOLOGICAL Hx Musculoskeletal Disorders: Yes Hx Arthritis: Yes (right hip/leg) Hx Falls: No Hx Herniated Disk: Yes - GASTROINTESTINAL Hx Gastrointestinal Disorders: No - GENITOURINARY/GYNECOLOGICAL Hx Genitourinary Disorders: Yes Hx Incontinence: Yes - PSYCHIATRIC Hx Psychophysiologic Disorder: No - SURGICAL HISTORY Hx Surgeries: Yes Hx Coronary Stent: Yes Hx Hysterectomy: Yes - ANESTHESIA Hx Anesthesia: Yes Hx Anesthesia Reactions: No Hx Malignant Hyperthermia: No Meds Allergies/Adverse Reactions: Allergies Allergy/AdvReac Type Severity Reaction Status Date / Time No Known Allergies Allergy Verified 02/02/18 18:19 Physical Exam - Constitutional Appears: Well, Non-toxic, No Acute Distress - Head Exam Head Exam: ATRAUMATIC, NORMAL INSPECTION, NORMOCEPHALIC - Eye Exam Eye Exam: EOMI, Normal appearance. absent: Conjunctival injection, Scleral icterus Pupil Exam: absent: Irregular, Unequal - ENT Exam ENT Exam: Mucous Membranes Moist - Neck Exam Neck exam: Positive for: Full Rom, Normal Inspection - Respiratory Exam Respiratory Exam: Clear to Auscultation Bilateral, NORMAL BREATHING PATTERN. absent: Accessory Muscle Use, Chest Wall Tenderness, Decreased Breath Sounds, Rales, Rhonchi, Wheezes - Cardiovascular Exam Cardiovascular Exam: REGULAR RHYTHM, RRR, +S1, +S2. absent: Bradycardia, Tachycardia, Irregular Rhythm, JVD, +S4 - GI/Abdominal Exam GI & Abdominal Exam: Normal Bowel Sounds, Soft. absent: Diminished Bowel Sounds, Distended, Firm, Hyperactive Bowel Sounds, Hypoactive Bowel Sounds, Rigid, Tenderness Additional comments: no appreciable supra-pubic fullness or tenderness - Extremities Exam Extremities exam: Positive for: normal capillary refill, normal inspection, pedal pulses present. Negative for: calf tenderness, pedal edema, tenderness - Back Exam Back exam: absent: CVA tenderness (L), CVA tenderness (R) - Neurological Exam Additional comments: awake and alert, oriented to self/location/year, following all commands appropriately, moving all extremities spontaneously and on command - Psychiatric Exam Psychiatric exam: Normal Affect, Normal Mood - Skin Skin Exam: Dry, Intact, Normal Color, Warm Results - Vital Signs Recent Vital Signs: Last Vital Signs Temp 97.7 F 09/26/18 03:45 Pulse 69 09/26/18 03:45 Resp 19 09/26/18 03:45 BP 173/79 H 09/26/18 03:45 Pulse Ox 96 09/26/18 03:45 - Labs Result Diagrams: 09/26/18 08:05 09/26/18 08:05 Labs: Laboratory Results - last 24 hr 09/25/18 09/25/18 09/25/18 20:00 20:00 20:00 WBC 6.9 RBC 3.88 Hgb 10.9 L Hct 33.7 L MCV 86.9 MCH 28.1 MCHC 32.3 RDW 13.7 Plt Count 337 MPV 10.6 PT 11.0 INR 0.97 APTT 34.9 Sodium 137 Potassium 3.9 Chloride 101 Carbon Dioxide 28 Anion Gap 12 BUN 62 H Creatinine 2.1 H Est GFR ( Amer) 27 Est GFR (Non-Af Amer) 23 Random Glucose 181 H Calcium 9.1 Total Bilirubin 0.3 AST 30 ALT 25 Alkaline Phosphatase 70 Lactate Dehydrogenase 623 Total Creatine Kinase 173 Troponin I 0.01 Total Protein 7.4 Albumin 4.0 Globulin 3.4 Albumin/Globulin Ratio 1.2 Assessment & Plan - Assessment and Plan (Free Text) Assessment: 1) Near-syncopal episode - Stroke/TIA vs orthostatic hypotension vs ACS vs 2/2 UTI 2) Gait instability 3) Abnormal sensation with urination, r/o UTI 4) CAD with stenting 5) HTN 6) HLD 7) CKD Stage IIIb 8) DMII 9) Hx CEA 10) Normocytic Anemia Plan: Most recent labs and vitals in charting reviewed -CT head negative for acute stroke, EKG negative for acute arrhythmia, Cardio and Neuro consulted, appreciate their inputs -Trop x1 negative, trending 2 more q8h to rule out ACS -no hypoglycemia on admission labs, continue home insulin and fingersticks ACHS; last A1c was 7.2 on 08/28/18, no need for repeat at this time -sensation of pressure with urination at home, followed by dizziness/whoozy sensation, UA/Urine cx ordered to rule out UTI -Iron panel ordered given anemia, f/u -continue high intensity statin given hx CAD and CEA, lipid panel ordered -TSH and PTH ordered, f/u -Given CKD IIIb with GFR 33, unlikely receiving much benefit from HCTZ, will hold -Stopping Imdur given current well controlled BP on home Metoprolol and concern for possible orthostatic hypotension, Orthostatic BPs ordered as well -Normocytic anemia noted on labs, appears to be baseline as compared to prior admission, Iron panel ordered -Continue home ASA and Plavix given hx of CEA and CAD -PT consulted to assess gait given report of "legs giving out under her" Contacted Dr. Zaidi's office regarding the possible angioedema that patient describes, and recent med changes that patient can't describe. Awaiting callback. Until further confirmation or denial from PMD's office, will proceed under presumption that patient cannot tolerate ACEs/ARBs, avoid other possible causes of angioedema. Reviewed and discussed with attending, Dr. Berkowitz <Jose Berkowitz S - Last Filed: 09/27/18 21:01> Results - Vital Signs Recent Vital Signs: Last Vital Signs Temp 98.2 F 09/27/18 09:10 Pulse 78 09/27/18 15:19 Resp 20 09/27/18 09:10 BP 143/95 H 09/27/18 09:10 Pulse Ox 94 L 09/27/18 09:10 - Labs Result Diagrams: 09/27/18 06:15 09/27/18 06:15 Labs: Laboratory Results - last 24 hr 09/26/18 09/26/18 09/26/18 03:07 04:52 11:16 WBC RBC Hgb Hct MCV MCH MCHC RDW Plt Count MPV Gran % Lymph % (Auto) [place] % (Auto) Eos % (Auto) Baso % (Auto) Gran # Lymph # (Auto) [place] # (Auto) Eos # (Auto) Baso # (Auto) Sodium Potassium Chloride Carbon Dioxide Anion Gap BUN Creatinine Est GFR ( Amer) Est GFR (Non-Af Amer) POC Glucose (mg/dL) 64 L 140 H 232 H Random Glucose Calcium Phosphorus Magnesium Triglycerides Cholesterol LDL Cholesterol Direct HDL Cholesterol PTH Intact Whole Molec 09/26/18 09/26/18 09/26/18 15:48 19:22 21:11 WBC RBC Hgb Hct MCV MCH MCHC RDW Plt Count MPV Gran % Lymph % (Auto) [place] % (Auto) Eos % (Auto) Baso % (Auto) Gran # Lymph # (Auto) [place] # (Auto) Eos # (Auto) Baso # (Auto) Sodium Potassium Chloride Carbon Dioxide Anion Gap BUN Creatinine Est GFR ( Amer) Est GFR (Non-Af Amer) POC Glucose (mg/dL) 128 H 74 Random Glucose Calcium Phosphorus Magnesium Triglycerides Cholesterol LDL Cholesterol Direct HDL Cholesterol PTH Intact Whole Molec 111 H 09/26/18 09/27/18 09/27/18 23:44 00:54 06:15 WBC RBC Hgb Hct MCV MCH MCHC RDW Plt Count MPV Gran % Lymph % (Auto) [place] % (Auto) Eos % (Auto) Baso % (Auto) Gran # Lymph # (Auto) [place] # (Auto) Eos # (Auto) Baso # (Auto) Sodium 139 Potassium 3.7 Chloride 105 Carbon Dioxide 29 Anion Gap 9 L BUN 48 H Creatinine 1.8 H Est GFR ( Amer) 33 Est GFR (Non-Af Amer) 27 POC Glucose (mg/dL) 52 L 285 H Random Glucose 115 H Calcium 8.8 Phosphorus 4.6 H Magnesium 2.3 H Triglycerides 295 H Cholesterol 146 LDL Cholesterol Direct 55 HDL Cholesterol 35 PTH Intact Whole Molec 09/27/18 09/27/18 09/27/18 06:15 07:24 11:29 WBC 5.9 RBC 3.80 Hgb 10.4 L Hct 32.7 L MCV 86.1 MCH 27.4 MCHC 31.8 RDW 13.7 Plt Count 303 MPV 10.8 Gran % 51.2 Lymph % (Auto) 36.4 H [place] % (Auto) 8.2 H Eos % (Auto) 3.7 Baso % (Auto) 0.5 Gran # 3.01 Lymph # (Auto) 2.1 [place] # (Auto) 0.5 Eos # (Auto) 0.2 Baso # (Auto) 0.03 Sodium Potassium Chloride Carbon Dioxide Anion Gap BUN Creatinine Est GFR ( Amer) Est GFR (Non-Af Amer) POC Glucose (mg/dL) 113 H 218 H Random Glucose Calcium Phosphorus Magnesium Triglycerides Cholesterol LDL Cholesterol Direct HDL Cholesterol PTH Intact Whole Molec 09/27/18 15:58 WBC RBC Hgb Hct MCV MCH MCHC RDW Plt Count MPV Gran % Lymph % (Auto) [place] % (Auto) Eos % (Auto) Baso % (Auto) Gran # Lymph # (Auto) [place] # (Auto) Eos # (Auto) Baso # (Auto) Sodium Potassium Chloride Carbon Dioxide Anion Gap BUN Creatinine Est GFR ( Amer) Est GFR (Non-Af Amer) POC Glucose (mg/dL) 193 H Random Glucose Calcium Phosphorus Magnesium Triglycerides Cholesterol LDL Cholesterol Direct HDL Cholesterol PTH Intact Whole Molec Assessment & Plan - Assessment and Plan (Free Text) Plan: he patient was seen and examined by me. I reviewed the note of the medical center representative and agree with the assessment and plan. I have reviewed the medications and the last labs. Pt with syncopal episode. She will be seen by neurology. Her trops have been negative. She has CKD-3 and is most likely due to diabetic nephropathy. She will continue with Imdur for her HTN. Due to her CKD she may not benefit from her HCTZ. Iron will be ordered for her anemia. She has a hx of CAD and is on ASA. She will continue with Lipitor for dyslipidemia. She will need further PT with possible TCU. The pt is open to the idea of rehab.
[2018-09-26] MEDS ORDERED: Insulin Reg-MEDIUM-Coverage SC SCH (07:30)
[2018-09-26 08:15] LABS: BASO # 0.02 K/mm3 (0.0-2.0); BASO % 0.3 % (0.0-3.0); EOS # 0.2 (0.0-0.7); EOS % 3.5 % (1.5-5.0); GRAN # 3.37 (1.4-6.5); GRAN % 58.9 % (50.0-68.0); HEMOGLOBIN 10.4 g/dL (12.0-16.0); LYMPH # 1.8 (1.2-3.4); LYMPH % 30.5 % (22.0-35.0); MEAN CELL VOLUME 86.2 fl (80.0-105.0); MEAN CORPUSCULAR HEMOGLOBIN 27.7 pg (25.0-35.0); MEAN CORPUSCULAR HGB CONC 32.1 g/dl (31.0-37.0); MEAN PLATELET VOLUME 10.3 fl (7.0-11.0); MONO # 0.4 (0.1-0.6); MONO % 6.8 % (1.0-6.0); RBC 3.76 10^6/uL (3.5-6.1); RED CELL DISTRIBUTION WIDTH 13.7 % (11.5-14.5); WHITE BLOOD COUNT 5.7 10^3/uL (4.5-11.0)
[2018-09-26 08:30] LABS: ALB/GLOB RATIO 1.2 (1.1-1.8); ALBUMIN 3.8 g/dL (3.0-4.8); CALCIUM 9.1 mg/dL (8.4-10.5)
--- NOTE | 2018-09-26 08:49 | RAD ---
Date of service: 09/25/2018 HISTORY: weak COMPARISON: 08/28/2018 FINDINGS: LUNGS: The lungs are well inflated and clear. PLEURA: No pleural effusions or pneumothorax. CARDIOVASCULAR: The heart is normal in size. No aortic atherosclerotic calcification present. OSSEOUS STRUCTURES: Within normal limits for the patient's age. VISUALIZED UPPER ABDOMEN: Normal. OTHER FINDINGS: None. IMPRESSION: No active pulmonary disease.
--- NOTE | 2018-09-26 10:04 | CT ---
Date of service: 09/25/2018 PROCEDURE: CT HEAD WITHOUT CONTRAST. HISTORY: near syncopal COMPARISON: 08/28/2018. TECHNIQUE: Axial computed tomography images were obtained through the head/brain without intravenous contrast. Radiation dose: Total exam DLP = 980.68 mGy-cm. This CT exam was performed using one or more of the following dose reduction techniques: Automated exposure control, adjustment of the mA and/or kV according to patient size, and/or use of iterative reconstruction technique. FINDINGS: HEMORRHAGE: No intracranial hemorrhage. BRAIN: Are severe chronic microangiopathic changes. There is no mass, mass effect or abnormal extra-axial fluid collection. There is no territorial infarction. The midline sagittal structures are normal.There are coarse atherosclerotic calcifications in the cavernous carotid arteries. VENTRICLES: There is mild age-related global parenchymal volume loss and proportionate enlargement of the ventricles and cortical sulci. CALVARIUM: There is no calvarial fracture or extracranial soft tissue swelling. PARANASAL SINUSES: Predominantly clear. MASTOID AIR CELLS: Predominantly clear. OTHER FINDINGS: None. IMPRESSION: No acute intracranial abnormality. Severe chronic microangiopathic changes and mild age-related global parenchymal volume loss. A preliminary report was provided by [facility].
[2018-09-26 10:23] LABS: TROPONIN I 0.01 ng/mL
[2018-09-26 10:56] LABS: IRON 51 ug/dL (45-180)
[2018-09-26 11:05] LABS: % IRON SATURATION 16 % (20-55); TOTAL IRON BINDING CAPACITY 322 ug/dL (265-497)
[2018-09-26] MEDS: Insulin Human NPH/Reg 70/30 Vial(3 ml) SC SCH ×2 (11:14→17:09)
[2018-09-26] MEDS: Metoprolol Succinate 100 mg XL Tab PO SCH (11:20)
--- NOTE | 2018-09-26 12:28 | CP.PCM.APN ---
Subjective - Date & Time of Evaluation Date of Evaluation: 09/26/18 Time of Evaluation: 08:15 - Subjective Subjective: seen and examined 78 y/o F, PMHx CAD with stents, DM, HLD, HTN, CKD and Carotid Endarterectomy, BIBA with c/o generalized malaise and generalized weakness. Patient reported dizziness and near syncope, "Both of my legs just became weak." Patient denies BANKS, fever, chills, SOB, patient is with intermittent chronic non-productive cough, denies hemoptysis, chest pain, abdominal pain, N/V/D, hematemesis or rectal bleeding. Review of Systems - Constitutional Constitutional: As Per HPI - Cardiovascular Cardiovascular: As Per HPI - Respiratory Respiratory: As Per HPI - Gastrointestinal Gastrointestinal: As Per HPI Objective - Vital Signs/Intake and Output Vital Signs (last 24 hours): Temp Pulse Resp BP Pulse Ox 97.9 F 86 20 154/70 H 96 09/26/18 08:22 09/26/18 11:20 09/26/18 08:22 09/26/18 11:20 09/26/18 08:22 repeat B/P SBP>200 as per RN - Medications Medications: Current Medications Aspirin (Ecotrin) 81 mg PO DAILY [facility] Last Admin: 09/26/18 11:21 Dose: 81 mg Atorvastatin Calcium (Lipitor) 40 mg PO [facility] Hydrochlorothiazide (Hydrodiuril) 25 mg PO DAILY [facility] Last Admin: 09/26/18 11:20 Dose: 25 mg Insulin Human Regular (Humulin R Med) 0 units SC [facility]; Protocol Metoprolol Succinate (Toprol Xl) 100 mg PO DAILY [facility] Last Admin: 09/26/18 11:20 Dose: 100 mg - Labs Labs: 09/26/18 08:05 09/26/18 08:05 PT 11.0 SECONDS (9.4-12.5) 09/25/18 20:00 INR 0.97 09/25/18 20:00 APTT 34.9 Seconds (25.1-36.5) 09/25/18 20:00 - Constitutional Appears: Non-toxic, No Acute Distress - Head Exam Head Exam: ATRAUMATIC - Eye Exam Eye Exam: EOMI, PERRL - Neck Exam Neck Exam: Full ROM - Respiratory Exam Respiratory Exam: Clear to Ausculation Bilateral, NORMAL BREATHING PATTERN - Cardiovascular Exam Cardiovascular Exam: REGULAR RHYTHM, +S1, +S2 - GI/Abdominal Exam GI & Abdominal Exam: Soft, Normal Bowel Sounds - Extremities Exam Extremities Exam: Full ROM, Normal Capillary Refill - Neurological Exam Neurological Exam: CN II-XII Intact, Oriented x3 Neuro motor strength exam: Left Upper Extremity: 5, Right Upper Extremity: 5, Left Lower Extremity: 5, Right Lower Extremity: 5 - Psychiatric Exam Psychiatric exam: Normal Affect, Normal Mood - Skin Skin Exam: Dry, Intact, Normal Color, Warm Assessment and Plan - Assessment and Plan (Free Text) Assessment: near syncope fatigue/weakness Plan: echo pending result, cardiology following awaiting further recommendations carotid results pending PT eval pending UA pending neurology consult and recommendations pending patient hypertensive hydralazine 10mg IVP x 1 dose given, recheck bp manually in 1hr RN instructed to notify HYDROPULPER OPERATOR/PMD if not resolved CM/SW for D/C planning
[2018-09-26] MEDS: Insulin Reg-MEDIUM-Coverage SC SCH ×3 (12:35→22:00)
[2018-09-26] MEDS ORDERED: Labetalol 5 mg/ml Inj 20ML IV ONE (13:42)
[2018-09-26] MEDS ORDERED: Labetalol 5 mg/ml Inj 20ML IV PRN ×2 (13:53→13:58)
--- NOTE | 2018-09-26 14:13 | US ---
PROCEDURE: Bilateral carotid artery duplex ultrasound HISTORY: Carotid stenosis dizziness PHYSICIAN(S): Dung Vital MD. TECHNIQUE: Duplex sonography and color-flow Doppler were used to evaluate the carotid bifurcations and limited segments of the vertebral arteries bilaterally. FINDINGS: There is moderate focal heterogeneous echogenic plaque noted at the carotid bifurcations bilaterally. The peak systolic velocity in the proximal right internal carotid artery is 117 cm/sec. This corresponds to a 40-59 percent proximal right ICA stenosis. Mildly elevated systolic velocities are noted in the proximal right external carotid artery. There is antegrade flow in the right vertebral artery. The peak systolic velocity in the proximal left internal carotid artery is 73 cm/sec. This corresponds to a 20 to 39% proximal left ICA stenosis. Normal systolic velocities are noted in the proximal left external carotid artery. There is antegrade flow in the left vertebral artery. IMPRESSION: 1. 40-59 percent proximal right ICA stenosis. 2. 20-39 percent proximal left ICA stenosis. 3. Antegrade flow in both vertebral arteries.
--- NOTE | 2018-09-26 14:55 | CON ---
DATE: (Always retain DOS field) HISTORY OF PRESENT ILLNESS: This is a 78-year-old female with past medical history of coronary artery disease, with coronary stent, diabetes, hyperlipidemia, hypertension, chronic renal insufficiency, status post carotid endarterectomy, came to the hospital with generalized malaise and weakness. Also complain of dizziness and had near syncopal episodes. The patient also feels oozy at times, call to evaluate the patient's past medical history. ALLERGIES: NO KNOWN DRUG ALLERGIES. HOME MEDICATIONS: Imdur, metoprolol, Ecotrin, Plavix, Zocor, and NPH insulin and regular insulin. PHYSICAL EXAMINATION HEENT: Normocephalic, atraumatic. NECK: Supple. NEUROLOGIC: Awake, oriented to self. Cranial nerves II through XII were tested. Pupils reactive. EOM intact. Visual mclaughlin full. No facial asymmetry. Tongue midline. MOTOR EXAMINATION: Spontaneous movement of the extremities noted. Deep tendon reflexes 1+. Plantars downgoing. Sensory appears intact. Cerebellar gait deferred. IMPRESSION: A 78-year-old female with past medical history as above came with generalized weakness, dizziness and syncopal episode. CAT scan of the head was done, which was negative for bleed and no infarct and workup in progress. Continue present management. We will follow up. Ron Paredes MD (Delete this signature block when dictator is a preceptor.)
--- NOTE | 2018-09-26 15:16 | CP.PCM.PCO ---
Assessment & Plan - Assessment and Plan (Free Text) Assessment: NEURO COMMUNICATION NOTE: NEAR SYNCOPE SEC TO TRANSIENT HTN EPISODES WITH FATIGUE. CAROTID USG REVIEWED SHOWING 40-59% RIGHT ICA AND LEFT 20-39% STENOSIS. RECOMMEND: KEEP BP BTW 130-140 SYSTOLIC AND 70-80 DIASTOLIC. ASA 81 MG PO DAILY. ORTHOSTATICS PT EVAL. PT IS NEUROLOGICALLY STABLE. Jaylene PEMBERTON MD.
[2018-09-26 17:22] LABS: URINE BILIRUBIN NEGATIVE (NEGATIVE); URINE BLOOD NEGATIVE (NEGATIVE); URINE GLUCOSE (UA) NEGATIVE (NEGATIVE); URINE LEUKOCYTE ESTERASE NEGATIVE Leu/uL (NEGATIVE); URINE PROTEIN 30 mg/dL (<30 mg/dL); URINE UROBILINOGEN 0.2 E.U./dL (<1 E.U./dL)
[2018-09-26 17:47] LABS: FERRITIN 33.5 ng/mL
[2018-09-26 18:11] LABS: URINE APPEARANCE CLEAR (CLEAR); URINE COLOR YELLOW (YELLOW)
[2018-09-26 18:12] LABS: URINE BACTERIA FEW (NEG); URINE RBC NEGATIVE /hpf (0-2)
[2018-09-26 19:49] LABS: TROPONIN I 0.02 ng/mL
--- NOTE | 2018-09-26 20:45 | CARD ---
APPROVED REPORT Date of service: 09/25/2018 EKG Measurement Heart [id number] <Conclusion> Normal sinus rhythm Possible Left atrial enlargement Right bundle branch block Inferior infarct, age undetermined Abnormal ECG
--- NOTE | 2018-09-26 21:10 | CON ---
DATE: 09/26/2018 REQUESTING PHYSICIAN: Dr. Berkowitz REASON FOR CONSULTATION: Near syncope. HISTORY: This is a 78-year-old woman well-known to us with a history of coronary artery disease, status post prior multivessel PCI, who presents to the emergency room with complaints of extreme weakness and dizziness. She denied any chest pain. She is unaware of any palpitations. She did not lose consciousness but states that her legs felt very weak. Her symptoms lasted for approximately 30 minutes. She was brought to the emergency room. Upon arrival, she was hemodynamically stable with no significant changes on her electrocardiogram. PAST HISTORY: Notable for the problems mentioned above. She has undergone prior multivessel PCI and underwent catheterization earlier this year and was found to have patent stents. She does have a history of hypertension, hyperlipidemia and diabetes. She has undergone a prior carotid enterectomy and she has mild renal insufficiency as well. MEDICATIONS: Include aspirin, Plavix, insulin, hydrochlorothiazide, Imdur, metoprolol and simvastatin. ALLERGIES: NONE. SOCIAL HISTORY: She does not smoke or drink. FAMILY HISTORY: Both parents are , cause unknown. REVIEW OF SYSTEMS: Ten-point review of systems otherwise unremarkable. PHYSICAL EXAMINATION: GENERAL: She is an elderly woman, appears comfortable at the present time. VITAL SIGNS: Her blood pressure is 150/80 with a pulse of 80, in sinus rhythm, no palpitations, respirations are 14, she is afebrile. HEENT: Normocephalic, atraumatic. NECK: No JVD. Carotid upstrokes are diminished and delayed. CHEST: Diffuse scattered rhonchi heard. HEART: PMI displaced laterally with a systolic murmur at the base ranging to the carotids. ABDOMEN: Soft, nontender, normoactive bowel sounds. EXTREMITIES: No edema. SKIN: Warm and dry. PSYCHIATRIC: Normal mood and affect. NEUROLOGIC: Alert and oriented x3. No gross motor or sensory deficits noted. DIAGNOSTIC DATA: Potassium 4, BUN and creatinine are 52 and 1.8, glucose 130. Two sets of cardiac enzymes are negative. Hemoglobin and hematocrit of 10.4 and 32.4 with a white count of 5.7, platelet count of 297,000. Chest x-ray reveals normal cardiac silhouette with clear lung mclaughlin. Electrocardiogram reveals sinus rhythm with right bundle-branch block. A prior inferior wall myocardial fraction pattern cannot be excluded. IMPRESSION: 1. Weakness and near syncope, etiology uncertain. On physical examination, she does appear to have some degree of aortic stenosis and further evaluation of this would be appropriate. There is no clear evidence of cardiac ischemia at the present time and no significant dysrhythmias have been documented. 2. Coronary artery disease, status post multivessel percutaneous coronary intervention, clinically stable. 3. Rest of problems as noted. RECOMMENDATIONS: Current medications will be continued for now. Telemetry monitoring should continue as well. An echocardiogram will be scheduled and reviewed. Further recommendations will be made based upon her clinical course and the results of her noninvasive testing. Thank you for this consultation. I will be happy to follow along through her hospital course. Guido Negro MD MTDD
[2018-09-26] MEDS ORDERED: Dextrose 50% SYRINGE Inj (50 ml) IVP STA (23:51)
[2018-09-27 07:13] LABS: BASO # 0.03 K/mm3 (0.0-2.0); BASO % 0.5 % (0.0-3.0); EOS # 0.2 (0.0-0.7); EOS % 3.7 % (1.5-5.0); GRAN # 3.01 (1.4-6.5); GRAN % 51.2 % (50.0-68.0); HEMOGLOBIN 10.4 g/dL (12.0-16.0); LYMPH # 2.1 (1.2-3.4); LYMPH % 36.4 % (22.0-35.0); MEAN CELL VOLUME 86.1 fl (80.0-105.0); MEAN CORPUSCULAR HEMOGLOBIN 27.4 pg (25.0-35.0); MEAN CORPUSCULAR HGB CONC 31.8 g/dl (31.0-37.0); MEAN PLATELET VOLUME 10.8 fl (7.0-11.0); MONO # 0.5 (0.1-0.6); MONO % 8.2 % (1.0-6.0); RBC 3.8 10^6/uL (3.5-6.1); RED CELL DISTRIBUTION WIDTH 13.7 % (11.5-14.5); WHITE BLOOD COUNT 5.9 10^3/uL (4.5-11.0)
[2018-09-27 07:16] LABS: CALCIUM 8.8 mg/dL (8.4-10.5)
--- NOTE | 2018-09-27 08:11 | CP.PCM.PN ---
Subjective - Date & Time of Evaluation Date of Evaluation: 09/27/18 Time of Evaluation: 07:00 - Subjective Subjective: Stable on 3R. She feels better. No syncope, vertigo, CP or SOB. V/S noted. RSR. Orthostatics noted: normal PE: Lungs: clear Cor: S1S2, SANDRA Abd: soft Ext: no edema Neuro: alert Labs noted: CBC OK, Cr = 1.8, trops x3 neg. Car U/S noted. CT head: noted ECG 09/25/18L RSR, RBBB, No acute changes Objective - Vital Signs/Intake and Output Vital Signs (last 24 hours): Temp Pulse Resp BP Pulse Ox 97.8 F 64 20 140/63 97 09/27/18 00:00 09/27/18 06:00 09/27/18 00:00 09/27/18 00:52 09/27/18 00:00 Intake and Output: 09/27/18 09/27/18 06:59 18:59 Intake Total 780 Balance 780 - Medications Medications: Current Medications Aspirin (Ecotrin) 81 mg PO DAILY [facility] Last Admin: 09/26/18 11:21 Dose: 81 mg Atorvastatin Calcium (Lipitor) 40 mg PO HS [facility] Last Admin: 09/26/18 21:21 Dose: 40 mg Clopidogrel Bisulfate (Plavix) 75 mg PO DAILY [facility] Insulin Human Regular (Humulin R Med) 0 units SC [facility]; Protocol Last Admin: 09/26/18 22:00 Dose: Not Given Isosorbide Mononitrate (Imdur) 60 mg PO DAILY [facility] Labetalol HCl (Trandate) 10 mg IV Q6H PRN PRN Reason: For SBP > 170 or DBP > 100 Last Admin: 09/26/18 23:57 Dose: 10 mg Metoprolol Succinate (Toprol Xl) 100 mg PO DAILY [facility] Last Admin: 09/26/18 11:20 Dose: 100 mg - Labs Labs: 09/27/18 06:15 09/27/18 06:15 PT 11.0 SECONDS (9.4-12.5) 09/25/18 20:00 INR 0.97 09/25/18 20:00 APTT 34.9 Seconds (25.1-36.5) 09/25/18 20:00 Assessment and Plan - Assessment and Plan (Free Text) Assessment: Weakness, Dizziness, Legs gave out CAD/PCIs HBP HLD Diabetes CVD with CEA CKD Plan: Check Echo OOB as katia As per Neuro. and Dr. Berkowitz/Medical Team
[2018-09-27] MEDS: Metoprolol Succinate 100 mg XL Tab PO SCH (09:39)
[2018-09-27] MEDS: Insulin Reg-MEDIUM-Coverage SC SCH ×5 (09:40→21:33)
--- NOTE | 2018-09-27 09:46 | CP.PCM.PN ---
<José Mendes - Last Filed: 09/27/18 18:14> Subjective - Date & Time of Evaluation Date of Evaluation: 09/27/18 Time of Evaluation: 07:20 - Subjective Subjective: Progress Note for Dr. Garcia Service Patient seen and examined at bedside. Overnight, BP initially elevated but finally came under control. She was also reported to have an episode of hypoglycemia to 50's, resolved with 1x dose of D50. Patient resting comfortably today, wanted to go home, but understanding when explained to that need to improve BP control and see what PT recs first. Objective - Vital Signs/Intake and Output Vital Signs (last 24 hours): Temp Pulse Resp BP Pulse Ox 98.2 F 75 20 143/95 H 94 L 09/27/18 09:10 09/27/18 09:39 09/27/18 09:10 09/27/18 09:10 09/27/18 09:10 Intake and Output: 09/27/18 09/27/18 06:59 18:59 Intake Total 780 Balance 780 - Medications Medications: Current Medications Aspirin (Ecotrin) 81 mg PO DAILY [facility] Last Admin: 09/27/18 09:39 Dose: 81 mg Atorvastatin Calcium (Lipitor) 40 mg PO HS [facility] Last Admin: 09/26/18 21:21 Dose: 40 mg Clopidogrel Bisulfate (Plavix) 75 mg PO DAILY [facility] Last Admin: 09/27/18 09:39 Dose: 75 mg Insulin Human Regular (Humulin R Med) 0 units SC [facility]; Protocol Last Admin: 09/27/18 09:40 Dose: 20 units Isosorbide Mononitrate (Imdur) 60 mg PO DAILY [facility] Last Admin: 09/27/18 09:39 Dose: 60 mg Labetalol HCl (Trandate) 10 mg IV Q6H PRN PRN Reason: For SBP > 170 or DBP > 100 Last Admin: 09/26/18 23:57 Dose: 10 mg Metoprolol Succinate (Toprol Xl) 100 mg PO DAILY [facility] Last Admin: 09/27/18 09:39 Dose: 100 mg - Labs Labs: 09/27/18 06:15 09/27/18 06:15 PT 11.0 SECONDS (9.4-12.5) 09/25/18 20:00 INR 0.97 09/25/18 20:00 APTT 34.9 Seconds (25.1-36.5) 09/25/18 20:00 - Additional Findings Additional findings: - Constitutional Appears: Well, Non-toxic, No Acute Distress - Head Exam Head Exam: ATRAUMATIC, NORMAL INSPECTION, NORMOCEPHALIC - Eye Exam Eye Exam: EOMI, Normal appearance. absent: Conjunctival injection, Scleral icterus Pupil Exam: absent: Irregular, Unequal - ENT Exam ENT Exam: Mucous Membranes Moist - Neck Exam Neck exam: Positive for: Full Rom, Normal Inspection - Respiratory Exam Respiratory Exam: Clear to Auscultation Bilateral, NORMAL BREATHING PATTERN. absent: Accessory Muscle Use, Chest Wall Tenderness, Decreased Breath Sounds, R ales, Rhonchi, Wheezes - Cardiovascular Exam Cardiovascular Exam: REGULAR RHYTHM, RRR, +S1, +S2. absent: Bradycardia, Tachycardia, Irregular Rhythm, JVD, +S4 - GI/Abdominal Exam GI & Abdominal Exam: Normal Bowel Sounds, Soft. absent: Diminished Bowel Sounds, Distended, Firm, Hyperactive Bowel Sounds, Hypoactive Bowel Sounds, Rigid, Tenderness - Extremities Exam Extremities exam: Positive for: normal capillary refill, normal inspection, pedal pulses present. Negative for: calf tenderness, pedal edema, tenderness - Back Exam Back exam: absent: CVA tenderness (L), CVA tenderness (R) - Neurological Exam awake and alert, oriented to self/location/year, following all commands appropriately, moving all extremities spontaneously and on command - Psychiatric Exam Psychiatric exam: Normal Affect, Normal Mood - Skin Skin Exam: Dry, Intact, Normal Color, Warm Assessment and Plan - Assessment and Plan (Free Text) Assessment: 1) Near-syncopal episode - likely 2/2 transient hypertensive episodes 2) Hypertensive urgency - improving 3) Gait instability - pending TCU eval 4) Possible UTI - ruled out 5) CAD with stenting 6) HTN 7) HLD 8) CKD Stage IIIb 9) DMII 10) Hx CEA 11) Normocytic Anemia Plan: Most recent labs and vitals in charting reviewed -CT head negative for acute stroke, as per Neuro likely near-syncope 2/2 transient HTN episodes -EKG NSR on arrival, trops x3 negative, as per Cardio obtain Echo and OOB as toleratede -Hypoglycemic overnight, resolved with D50 x1, will decrease BID insulin to 15 units, continue medium sliding scale, and f/u ACHS fingersticks for further adjustment of insulin regimen as needed -UA not suggestive of UTI, and patient reports now normal urination, no indication for antibiotics at this time -Iron panel ordered given anemia, mildly low % sat, Venofer x1 ordered -continue high intensity statin given hx CAD and CEA, lipid panel notable for elevated TG but appropriate LDL and HDL, will increase lipitor to 80mg and recheck lipid panel later in admission -TSH wnl, PTH elevated at 111, mildly elevated phos and wnl Calcium, so likely secondary hyperparathyroidism 2/2 CKD -HTN urgency overnight with SBPs > 200, now under control with Imdur 60mg daily, Metoprolol 100mg daily, and PRN Labetalol, will add 5mg Norvasc and monitor BPs further -Continue home ASA and Plavix given hx of CEA and CAD -PT consulted to assess gait given report of "legs giving out under her", recs TCU, patient amenable, TCU eval ordered Discussed case with patient's PMD, Dr. Zaidi. Patient had angioedema while on ACEi, was switched to procardia. Will adjust current regimen and avoid any ACEi or ARB use. Reviewed and discussed with attending, Dr. Berkowitz <Jose Berkowitz S - Last Filed: 09/27/18 20:57> Objective - Vital Signs/Intake and Output Vital Signs (last 24 hours): Temp Pulse Resp BP Pulse Ox 98.2 F 78 20 143/95 H 94 L 09/27/18 09:10 09/27/18 15:19 09/27/18 09:10 09/27/18 09:10 09/27/18 09:10 - Medications Medications: Current Medications Amlodipine Besylate (Norvasc) 5 mg PO DAILY [facility] Last Admin: 09/27/18 15:19 Dose: 5 mg Aspirin (Ecotrin) 81 mg PO DAILY [facility] Last Admin: 09/27/18 09:39 Dose: 81 mg Atorvastatin Calcium (Lipitor) 40 mg PO HS [facility] Last Admin: 09/26/18 21:21 Dose: 40 mg Clopidogrel Bisulfate (Plavix) 75 mg PO DAILY [facility] Last Admin: 09/27/18 09:39 Dose: 75 mg Insulin Human Regular (Humulin R Med) 0 units SC [facility]; Protocol Last Admin: 09/27/18 16:56 Dose: 1 units Isosorbide Mononitrate (Imdur) 60 mg PO DAILY [facility] Last Admin: 09/27/18 09:39 Dose: 60 mg Labetalol HCl (Trandate) 10 mg IV Q6H PRN PRN Reason: For SBP > 170 or DBP > 100 Last Admin: 09/26/18 23:57 Dose: 10 mg Metoprolol Succinate (Toprol Xl) 100 mg PO DAILY [facility] Last Admin: 09/27/18 09:39 Dose: 100 mg - Labs Labs: 09/27/18 06:15 09/27/18 06:15 PT 11.0 SECONDS (9.4-12.5) 09/25/18 20:00 INR 0.97 09/25/18 20:00 APTT 34.9 Seconds (25.1-36.5) 09/25/18 20:00 Assessment and Plan - Assessment and Plan (Free Text) Plan: The patient was seen and examined by me. I reviewed the note of the medical technologist clinical and agree with the assessment and plan. I have reviewed the medications and the last labs. Pt with syncopal episode. She was seen by neurology. Her trops have been negative. She was hypoglycemic and was given D50. Her Insuin was decreased. She is not able to take HORACIO due to side effects. She was on Procard ia. She will continue with Imdur for her HTN. She has a hx of CAD and is on ASA. She has CKD-3 and is most likely due to diabetic nephropathy. She has Iron def and is on Iron IV for replacement. She will continue with Lipitor for dyslipidemia. She will need further PT with possible TCU.
--- NOTE | 2018-09-27 12:04 | CP.PCM.PCO ---
Physician Communication Note - Physician Communication Note Physician Communication Note: PT eval pending CM/SW D/C planning
[2018-09-27] MEDS: Insulin Human NPH/Reg 70/30 Vial(3 ml) SC SCH ×2 (12:56→17:07)
[2018-09-28 00:27] VITALS: RESP 18
[2018-09-28 06:40] LABS: BASO # 0.03 K/mm3 (0.0-2.0); BASO % 0.6 % (0.0-3.0); EOS # 0.3 (0.0-0.7); EOS % 5.2 % (1.5-5.0); GRAN # 2.51 (1.4-6.5); GRAN % 48.8 % (50.0-68.0); HEMOGLOBIN 10.1 g/dL (12.0-16.0); LYMPH # 1.9 (1.2-3.4); LYMPH % 36.5 % (22.0-35.0); MEAN CELL VOLUME 87.4 fl (80.0-105.0); MEAN CORPUSCULAR HEMOGLOBIN 27.7 pg (25.0-35.0); MEAN CORPUSCULAR HGB CONC 31.8 g/dl (31.0-37.0); MONO # 0.5 (0.1-0.6); MONO % 8.9 % (1.0-6.0); RBC 3.64 10^6/uL (3.5-6.1); RED CELL DISTRIBUTION WIDTH 13.7 % (11.5-14.5); WHITE BLOOD COUNT 5.2 10^3/uL (4.5-11.0)
--- NOTE | 2018-09-28 06:54 | CP.PCM.PN ---
<José Mendes - Last Filed: 09/28/18 13:42> Subjective - Date & Time of Evaluation Date of Evaluation: 09/28/18 Time of Evaluation: 07:20 - Subjective Subjective: Progress Note for Dr. Garcia Service Patient seen and examined at bedside. BP remains well controlled. Will transition from Norvasc back to home Procardia (home medication as per patient's Primary, Dr. Zaidi). Pending discharge to TCU tomorrow for reconditioning due to poor gait. Objective - Vital Signs/Intake and Output Vital Signs (last 24 hours): Temp Pulse Resp BP Pulse Ox 98.2 F 68 18 122/58 L 97 09/28/18 00:00 09/28/18 06:00 09/28/18 00:00 09/28/18 00:00 09/28/18 00:00 Intake and Output: 09/27/18 09/28/18 18:59 06:59 Intake Total 120 Balance 120 - Medications Medications: Current Medications Amlodipine Besylate (Norvasc) 5 mg PO DAILY [facility] Last Admin: 09/27/18 15:19 Dose: 5 mg Aspirin (Ecotrin) 81 mg PO DAILY [facility] Last Admin: 09/27/18 09:39 Dose: 81 mg Atorvastatin Calcium (Lipitor) 40 mg PO HS [facility] Last Admin: 09/27/18 21:29 Dose: 40 mg Clopidogrel Bisulfate (Plavix) 75 mg PO DAILY [facility] Last Admin: 09/27/18 09:39 Dose: 75 mg Insulin Human Regular (Humulin R Med) 0 units SC [facility]; Protocol Last Admin: 09/27/18 21:33 Dose: Not Given Isosorbide Mononitrate (Imdur) 60 mg PO DAILY [facility] Last Admin: 09/27/18 09:39 Dose: 60 mg Labetalol HCl (Trandate) 10 mg IV Q6H PRN PRN Reason: For SBP > 170 or DBP > 100 Last Admin: 09/26/18 23:57 Dose: 10 mg Metoprolol Succinate (Toprol Xl) 100 mg PO DAILY [facility] Last Admin: 09/27/18 09:39 Dose: 100 mg - Labs Labs: 09/28/18 06:00 09/27/18 06:15 PT 11.0 SECONDS (9.4-12.5) 09/25/18 20:00 INR 0.97 09/25/18 20:00 APTT 34.9 Seconds (25.1-36.5) 09/25/18 20:00 - Additional Findings Additional findings: - Constitutional Appears: Well, Non-toxic, No Acute Distress - Head Exam Head Exam: ATRAUMATIC, NORMAL INSPECTION, NORMOCEPHALIC - Eye Exam Eye Exam: EOMI, Normal appearance. absent: Conjunctival injection, Scleral icterus Pupil Exam: absent: Irregular, Unequal - ENT Exam ENT Exam: Mucous Membranes Moist - Neck Exam Neck exam: Positive for: Full Rom, Normal Inspection - Respiratory Exam Respiratory Exam: Clear to Auscultation Bilateral, NORMAL BREATHING PATTERN. absent: Accessory Muscle Use, Chest Wall Tenderness, Decreased Breath Sounds, Rales, Rhonchi, Wheezes - Cardiovascular Exam Cardiovascular Exam: REGULAR RHYTHM, RRR, +S1, +S2. absent: Bradycardia, Tachycardia, Irregular Rhythm, JVD, +S4 - GI/Abdominal Exam GI & Abdominal Exam: Normal Bowel Sounds, Soft. absent: Diminished Bowel Sounds, Distended, Firm, Hyperactive Bowel Sounds, Hypoactive Bowel Sounds, Rigid, Tenderness - Extremities Exam Extremities exam: Positive for: normal capillary refill, normal inspection, pedal pulses present. Negative for: calf tenderness, pedal edema, tenderness - Back Exam Back exam: absent: CVA tenderness (L), CVA tenderness (R) - Neurological Exam awake and alert, oriented to self/location/year, following all commands appropriately, moving all extremities spontaneously and on command - Psychiatric Exam Psychiatric exam: Normal Affect, Normal Mood - Skin Skin Exam: Dry, Intact, Normal Color, Warm Assessment and Plan - Assessment and Plan (Free Text) Assessment: 1) Near-syncopal episode - likely 2/2 transient hypertensive episodes 2) Hypertensive urgency - improving 3) Gait instability - pending TCU eval 4) Possible UTI - ruled out 5) CAD with stenting 6) HTN 7) HLD 8) CKD Stage IIIb - likely 2/2 DM nephropathy 9) DMII 10) Hx CEA 11) Normocytic Anemia 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 Plan: Most recent labs and vitals in charting reviewed -CT head negative for acute stroke, as per Neuro likely near-syncope 2/2 transient HTN episodes -EKG NSR on arrival, trops x3 negative; Echo notable for EF 65%, mild-moderate AV calcification with mild , mild MR -Insulin adjusted yesterday due to prior overnight hypoglycemia, no hypoglycemic episode yesterday evening so will continue current regimen -Iron panel ordered given anemia, mildly low % sat, s/p Venofer x1 -continue high intensity statin given hx CAD/CEA and lipid panel with elevated TGs -PTH elevated at 111, mildly elevated phos and wnl Calcium, so likely secondary hyperparathyroidism 2/2 CKD -Protein to creatinine ratio approx 2:1, suggestive of approx 2g protein in urine, so CKD likely 2/2 diabetic nephropathy -BP well controlled with Imdur, Norvasc, Metoprolol; will transition from Norvasc back to home Procardia, which patient previously tolerated well as per her outpatient PMD (Dr. Zaidi) -Continue home ASA and Plavix given hx of CEA and CAD -Pending TCU due to unsteady gait, to be discharged to TCU tomorrow -Avoid all further ACEi/ARB use due to angioedema, patient's record in EMR addended to reflect this adverse reaction Reviewed and discussed with attending, Dr. Berkowitz <Jose Berkowitz S - Last Filed: 09/28/18 18:34> Objective - Vital Signs/Intake and Output Vital Signs (last 24 hours): Temp Pulse Resp BP Pulse Ox 97.4 F L 65 18 130/70 93 L 09/28/18 15:57 09/28/18 18:21 09/28/18 15:57 09/28/18 18:21 09/28/18 15:57 Intake and Output: 09/28/18 09/28/18 06:59 18:59 Intake Total 120 Balance 120 - Medications Medications: Current Medications Aspirin (Ecotrin) 81 mg PO DAILY [facility] Last Admin: 09/28/18 09:38 Dose: 81 mg Atorvastatin Calcium (Lipitor) 80 mg PO HS [facility] Clopidogrel Bisulfate (Plavix) 75 mg PO DAILY [facility] Last Admin: 09/28/18 09:38 Dose: 75 mg Guaifenesin/Dextromethorphan (Robitussin Dm) 5 ml PO Q4H PRN PRN Reason: Cough Last Admin: 09/28/18 11:21 Dose: 5 ml Insulin Human Regular (Humulin R Med) 0 units SC [facility]; Protocol Last Admin: 09/28/18 16:07 Dose: 1 units Isosorbide Mononitrate (Imdur) 60 mg PO DAILY [facility] Last Admin: 09/28/18 09:40 Dose: 60 mg Labetalol HCl (Trandate) 10 mg IV Q6H PRN PRN Reason: For SBP > 170 or DBP > 100 Last Admin: 09/26/18 23:57 Dose: 10 mg Metoprolol Succinate (Toprol Xl) 100 mg PO DAILY [facility] Last Admin: 09/28/18 09:37 Dose: 100 mg Nifedipine (Procardia) 10 mg PO TID [facility] Last Admin: 09/28/18 18:21 Dose: Not Given - Labs Labs: 09/28/18 06:00 09/28/18 06:00 PT 11.0 SECONDS (9.4-12.5) 09/25/18 20:00 INR 0.97 09/25/18 20:00 APTT 34.9 Seconds (25.1-36.5) 09/25/18 20:00 Assessment and Plan - Assessment and Plan (Free Text) Plan: The patient was seen and examined by me. I reviewed the note of the medical typist and agree with the assessment and plan. I have reviewed the medications and the last labs. Pt with syncope that has resolved. She has a good EF on echo that was reviewed. She has CAD and is on ASA and Metoprolol. Pt is on Norvasc for HTN. CKD-3 is stable and I am following the Cr. She has proteinuria of 2g/day. She is not able to take an HORACIO due to side effects. She has dyslipidemia and is on a statin. She will need TCU and will be ready to go in the am.
--- NOTE | 2018-09-28 07:39 | CARD ---
APPROVED REPORT Date of service: 09/27/2018 EXAM: Two-dimensional and M-mode echocardiogram with Doppler and color Doppler. Other Information Quality : AverageRhythm : INDICATION Aortic Valve Disease Syncope 2D DIMENSIONS Left Atrium (2D)3.7 (1.6-4.0cm)IVSd1.3 (0.7-1.1cm) LVDd3.8 (3.9-5.9cm)PWd1.3 (0.7-1.1cm) LVDs2.5 (2.5-4.0cm)FS (%) 35.2 % LVEF (%)65.0 (>50%) M-Mode DIMENSIONS Aortic Root2.60 (2.2-3.7cm)Aortic Cusp Exc.0.70 (1.5-2.0cm) Aortic Valve AoV Peak Ovdwxssp728.0cm/Abner Peak GR.17mmHgLVOT Peak Bjkmhdgs782.0cm/s LVOT VTI25.70cm Mitral Valve MV E Jfzyigmv19.5cm/sMV A Fkejwgin687.0cm/sMV KHJ782gn E/A ratio0.5MVA (PHT)1.19cm2 TDI E/Lateral E'0.0E/Medial E'0.0 Tricuspid Valve TR Peak Mrcysgfw378cs/sRAP [id number] Peak Gr.18mmHg [id number] LEFT VENTRICLE The left ventricle is normal size. There is mild concentric left ventricular hypertrophy. The left ventricular function is normal. The left ventricular ejection fraction is within the normal range. There is normal LV segmental wall motion. RIGHT VENTRICLE The right ventricle is normal size. ATRIA The left atrium size is normal. The right atrium size is normal. The interatrial septum is intact with no evidence for an atrial septal defect. AORTIC VALVE The aortic valve is mildly to moderately calcified. There is trace aortic regurgitation. There is mild valvular aortic stenosis. MITRAL VALVE The mitral valve is moderately thickened but opens well. Mitral regurgitation is mild. TRICUSPID VALVE The tricuspid valve is normal in structure. There is trace to mild tricuspid regurgitation. PULMONIC VALVE The pulmonic valve is not well visualized. GREAT VESSELS The aortic root is normal in size. PERICARDIAL EFFUSION There is no pericardial effusion. <Conclusion> The left ventricle is normal size. There is mild concentric left ventricular hypertrophy. The left ventricular function is normal. The aortic valve is mildly to moderately calcified. There is mild valvular aortic stenosis. Mitral regurgitation is mild.
[2018-09-28 07:50] LABS: CALCIUM 8.6 mg/dL (8.4-10.5)
[2018-09-28] MEDS: Insulin Reg-MEDIUM-Coverage SC SCH ×4 (08:35→21:55)
[2018-09-28] MEDS: Metoprolol Succinate 100 mg XL Tab PO SCH (09:37)
[2018-09-28] MEDS: Insulin Human NPH/Reg 70/30 Vial(3 ml) SC SCH ×2 (09:39→18:38)
--- NOTE | 2018-09-28 09:40 | CP.PCM.PCO ---
Physician Communication Note - Physician Communication Note Physician Communication Note: Medically cleared for TCU 09/29/18 CM/SW D/C planning
[2018-09-28] MEDS: guaiFENesin DM 100 mg-10 mg/5 ml UD PO PRN ×2 (11:21→22:06)
[2018-09-29 06:32] LABS: CALCIUM 8.9 mg/dL (8.4-10.5)
[2018-09-29 06:36] LABS: BASO # 0.01 K/mm3 (0.0-2.0); BASO % 0.2 % (0.0-3.0); EOS # 0.3 (0.0-0.7); EOS % 3.9 % (1.5-5.0); GRAN # 3.54 (1.4-6.5); GRAN % 54.6 % (50.0-68.0); HEMOGLOBIN 10.2 g/dL (12.0-16.0); LYMPH # 2.1 (1.2-3.4); LYMPH % 31.6 % (22.0-35.0); MEAN CORPUSCULAR HEMOGLOBIN 27.6 pg (25.0-35.0); MEAN CORPUSCULAR HGB CONC 31.7 g/dl (31.0-37.0); MEAN PLATELET VOLUME 11.1 fl (7.0-11.0); MONO # 0.6 (0.1-0.6); MONO % 9.7 % (1.0-6.0); RBC 3.7 10^6/uL (3.5-6.1); RED CELL DISTRIBUTION WIDTH 13.7 % (11.5-14.5); WHITE BLOOD COUNT 6.5 10^3/uL (4.5-11.0)
[2018-09-29] MEDS: Insulin Reg-MEDIUM-Coverage SC SCH ×2 (08:02→12:16)
[2018-09-29 09:09] VITALS: BP 138/68; PULSE 70; TEMP 98; O2SAT 98
[2018-09-29] MEDS: Metoprolol Succinate 100 mg XL Tab PO SCH (09:42)
[2018-09-29] MEDS: Insulin Human NPH/Reg 70/30 Vial(3 ml) SC SCH (09:42)
--- NOTE | 2018-09-30 02:04 | DS ---
HISTORY OF PRESENT ILLNESS: The patient is a 78-year-old black female who said that she fell very weak, dizzy, she almost fell and because of her legs given, and when she reached emergency room she was found to be hypertensive and the patient was admitted with the diagnosis of a near syncope and uncontrolled hypertension. She had new workup done. Her MRI is negative. The patient's blood pressure was controlled and evaluated by physical therapist and was accepted in TCU and she is being transferred to TCU today. PAST MEDICAL HISTORY: Significant for; 1. Hypertension. 2. Coronary artery disease status post angioplasty. 3. Hyperlipidemia. 4. Chronic kidney disease. 5. Non-insulin dependent diabetes. 6. Deconditioning and difficulty walking. PHYSICAL EXAMINATION: GENERAL: Today she is awake, alert, oriented, communicative. VITAL SIGNS: She is afebrile, pulse 70, respirations 18, blood pressure 130/60. LUNGS: Bilateral fair airflow. No rhonchi or crackle. HEART: S1 and S2 audible. ABDOMEN: Soft, nontender. No rebound. No guarding. NEUROLOGIC: The patient is awake, alert, oriented, communicative. LABORATORY DATA: WBC 6.5, hemoglobin 10.1, hematocrit 32.2, platelets 298. Chemistry; sodium 140, potassium 3.9, chloride 105, CO2 of 27, BUN 55, creatinine 1.8, blood sugar 224. She has urine that showed no growth. CT scan of the head is negative. Echocardiogram is unremarkable except mild valvular aortic stenosis. Carotid Doppler, 40%-59% proximal right internal carotid artery stenosis. ASSESSMENT: 1. Near syncope. 2. Uncontrolled hypertension. 3. Non-insulin dependent diabetes. 4. Chronic kidney disease. 5. Deconditioning and difficulty walking. PLAN: The patient is being discharged and she is being admitted in TCU for rehab. We will resume her medication including aspirin 81 daily. She is on Imdur 60 mg daily, atorvastatin 80 mg daily, Plavix 75 daily, Procardia 10 mg three times a day, metoprolol 100 mg daily, and labetalol 100 mg every 6 hours. She will be monitored in TCU. She will receive physical therapy and gait training. Mack Desai MD [facility] # [id number]
== END 2018-09-29 14:34 | DRG 305 ==
LOC: ED 19:35 → ERH 09-26 00:51 → 3RSO 09-26 02:51 → OBSVTOIN 09-26 14:36
PROVIDERS: ADMIT Internal Medicine Nephrology; ATTEND Internal Medicine Nephrology
DX: I16.0 Hypertensive urgency (principal); N25.81 Secondary hyperparathyroidism of renal origin; R55 Syncope and collapse; R42 Dizziness and giddiness; N18.3 Chronic kidney disease, stage 3 (moderate); E11.22 Type 2 diabetes mellitus with diabetic chronic kidney disease; Z95.5 Presence of coronary angioplasty implant and graft; Z79.899 Other long term (current) drug therapy; Z79.82 Long term (current) use of aspirin; Z79.02 Long term (current) use of antithrombotics/antiplatelets; Z79.4 Long term (current) use of insulin; I45.10 Unspecified right bundle-branch block; I12.9 Hypertensive chronic kidney disease with stage 1 through stage 4 chronic kidney disease, or unspecified chronic kidney disease; E78.5 Hyperlipidemia, unspecified; D64.9 Anemia, unspecified; I35.0 Nonrheumatic aortic (valve) stenosis; I25.10 Atherosclerotic heart disease of native coronary artery without angina pectoris; E11.649 Type 2 diabetes mellitus with hypoglycemia without coma; E11.21 Type 2 diabetes mellitus with diabetic nephropathy; Z83.3 Family history of diabetes mellitus; Z90.710 Acquired absence of both cervix and uterus; R26.2 Difficulty in walking, not elsewhere classified

== ENCOUNTER 2018-09-29 14:38 | Inpatient (IN) | payer OTHER, BC ==
[2018-09-29] MEDS ORDERED: Labetalol 5 mg/ml Inj 20ML IV PRN (14:52)
[2018-09-29] MEDS ORDERED: Pneumococcal 23-Valent Vaccine IM ONE (16:16)
[2018-09-29] MEDS ORDERED: Influenza Vaccine 60 mcg/0.5 mL SYR (4YR UP) IM ONE (16:16)
[2018-09-29] MEDS: Insulin Reg-MEDIUM-Coverage SC SCH ×2 (17:25→22:00)
[2018-09-30] MEDS: Insulin Reg-MEDIUM-Coverage SC SCH ×4 (06:50→21:51)
[2018-09-30] MEDS: Metoprolol Succinate 100 mg XL Tab PO SCH (08:01)
--- NOTE | 2018-09-30 22:32 | HP ---
DATE OF EXAM: 09/30/2018 HISTORY OF PRESENT ILLNESS: The patient is a 78-year-old black female who lives by herself, however, her daughter and son lives in the same apartment complex. She states she felt very weak, dizzy. Her legs gave in and she felt as if she is going to fall, so she called ambulance. She was brought to emergency room. She was found to have high blood pressure. She was admitted to control her blood pressure. She has neuro workup done that was negative. She was on antihypertensive, blood pressure was controlled and the patient was sent to TCU for gait training and close monitoring. ALLERGIES: SHE IS ALLERGIC TO HORACIO INHIBITORS, ARBs. MEDICATION AT HOME: She is on Robitussin, nifedipine 10 mg three times a day, metoprolol 100 mg daily, isosorbide 60 mg daily. She is on Plavix 75 daily, atorvastatin 80 mg at bedtime and aspirin 81 daily. PAST MEDICAL HISTORY: 1. She has significant past medical history of non-insulin dependent diabetes. 2. Chronic kidney disease. 3. Hypertension. 4. Hyperlipidemia. 5. Coronary artery disease. SOCIAL HISTORY: She lives alone. Denies smoking, drinking alcohol use. PHYSICAL EXAMINATION: GENERAL: She is awake, alert, oriented, communicative. VITAL SIGNS: She is afebrile. Pulse 69, respiration 14, blood pressure 126/66. HEENT: Text. NECK: Text. CARDIOPULMONARY: S1 and S2 audible. LUNGS: Bilateral fair airflow. No rhonchi or crackle. ABDOMEN: Soft, nontender. No rebound or guarding. NEUROLOGIC: She is awake, alert, oriented, communicative, ambulatory with minimal assistance. LABORATORY DATA: Blood sugar is 164. ASSESSMENT: 1. Status post near syncope. 2. Uncontrolled hypertension. 3. Coronary artery disease. 4. Hyperlipidemia. 5. Hypertension. 6. Status post cardiac cath in 11/2017. She had patent LAD, circumflex and RCA stent, but new distal RCA lesion and had angioplasty done for RCA lesion. She had normal LV function. PLAN: Currently, the patient is on aspirin 81 daily. She is refusing nifedipine and refusing to take nifedipine. She will continue on isosorbide. We will give her Norvasc 10 mg daily. Continue on Plavix. Continue physical therapy. We will follow up the patient. Mack Desai MD [facility] # [id number]
[2018-10-01] MEDS: Insulin Reg-MEDIUM-Coverage SC SCH ×4 (06:59→22:23)
[2018-10-01] MEDS: Metoprolol Succinate 100 mg XL Tab PO SCH (07:54)
--- NOTE | 2018-10-01 19:03 | PN ---
DATE: 10/01/2018 SUBJECTIVE: The patient has no complaints of any chest pain, shortness of breath, headaches or dizziness. PHYSICAL EXAMINATION GENERAL: The patient is lying in bed, flat, comfortable. VITAL SIGNS: Temperature is 98.6, pulse of 69, blood pressure is 146/72, and respirations 14. HEENT: No oral lesion. Anicteric sclerae. Moist mucosa. NECK: No JVD, adenopathy, or thyromegaly. CARDIOVASCULAR: S1 and S2, regular. No murmurs, rubs, or gallops. LUNGS: Clear to auscultation bilaterally. No wheeze, rales, or rhonchi. ABDOMEN: Bowel sounds are positive, soft, nontender and nondistended. EXTREMITIES: No cyanosis, clubbing or edema. ASSESSMENT: 1. Syncope, resolved. 2. Hypertension. 3. Coronary artery disease. 4. Dyslipidemia. PLAN: The patient is currently comfortable. She is on isosorbide. She is going to continue her Lipitor for dyslipidemia. She is on Norvasc for hypertension. She is on metoprolol daily. She is on her aspirin. She is getting physical therapy, which we be continued. Fingersticks are in the 160s to 190s. She is having physical therapy on [facility]. Jose Berkowitz MD
[2018-10-02] MEDS: Insulin Reg-MEDIUM-Coverage SC SCH ×4 (06:33→22:16)
[2018-10-02] MEDS: Metoprolol Succinate 100 mg XL Tab PO SCH (08:15)
--- NOTE | 2018-10-02 23:15 | PN ---
DATE: 10/02/2018 SUBJECTIVE: The patient has no complaints of any chest pain or shortness of breath. No headaches. PHYSICAL EXAMINATION: VITAL SIGNS: Temperature is 98.8, pulse of 74, blood pressure is 123/72, and respirations 18. GENERAL: The patient is lying in bed, flat, comfortable. HEENT: No oral lesion. Anicteric sclerae. Moist mucosa. NECK: No JVD, adenopathy, or thyromegaly. CARDIOVASCULAR: S1 and S2, regular. No murmurs, rubs, or gallops. LUNGS: Clear to auscultation bilaterally. No wheeze, rales, or rhonchi. ABDOMEN: Bowel sounds are positive, soft, nontender, and nondistended. EXTREMITIES: No cyanosis, clubbing or edema. LABORATORY DATA: No new labs. ASSESSMENT: 1. Syncope, resolved. 2. Gait dysfunction. 3. Hypertension. 4. Coronary artery disease. 5. Dyslipidemia. 6. HORACIO inhibitor allergic reaction with swelling. PLAN: The patient is currently on aspirin. This will be continued. She is receiving isosorbide for her hypertension. She is on amlodipine for her hypertension. The patient is on Lipitor for dyslipidemia. She is on Norvasc for hypertension. She is on Plavix daily. She is on metoprolol. The patient's blood pressure does increase 123/72. Currently, she is on heart healthy diet. She will continue with physical therapy. She is agreeable to stay until Monday. Jose Berkowitz MD
[2018-10-03] MEDS: Insulin Reg-MEDIUM-Coverage SC SCH ×4 (06:59→22:00)
[2018-10-03] MEDS: Metoprolol Succinate 100 mg XL Tab PO SCH (08:22)
--- NOTE | 2018-10-03 13:14 | RAD ---
PROCEDURE: Left Hand and thumb radiographs. HISTORY: L thumb pain COMPARISON: None. FINDINGS: BONES: Normal. No fracture. JOINTS: Normal. No osteoarthritic changes. SOFT TISSUES: Normal. OTHER FINDINGS: None. IMPRESSION: Negative study
--- NOTE | 2018-10-03 13:16 | RAD ---
Date of service: 10/03/2018 PROCEDURE: Cervical Spine Radiographs. HISTORY: Pain. COMPARISON: None available. FINDINGS: BONES: There is 7 mm of anterior subluxation of C4 over C5. There is multilevel facet degeneration DISC SPACES: Normal. SOFT TISSUES: Normal. No prevertebral soft tissue swelling. OTHER FINDINGS: None. IMPRESSION: There is 7 mm of anterior subluxation of C4 over C5. There is multilevel facet degeneration
--- NOTE | 2018-10-03 13:42 | PN ---
DATE: 10/03/2018 SUBJECTIVE: The patient has no complaints of any chest pain, no shortness of breath, no headaches. She complains of pain in the neck and in the left hand. She is requesting x-rays. OBJECTIVE: VITAL SIGNS: Temperature is 98.8, pulse of 78, blood pressure is 151/84, respirations 18. GENERAL: The patient is lying in bed, flat, comfortable. HEENT: No oral lesion. Anicteric sclerae. Moist mucosa. NECK: No JVD, adenopathy, or thyromegaly. CARDIOVASCULAR: S1 and S2, regular. No murmurs, rubs, or gallops. LUNGS: Clear to auscultation bilaterally. No wheeze, rales, or rhonchi. ABDOMEN: Bowel sounds are positive, soft, nontender and nondistended. EXTREMITIES: No cyanosis, clubbing or edema. ASSESSMENT: 1. Syncope resolved. 2. Gait dysfunction. 3. Hypertension. 4. Coronary artery disease. 5. Dyslipidemia. 6, HORACIO inhibitor allergic reaction with swelling. 7. Osteoarthritis. PLAN: The patient is currently on aspirin daily. She is going to continue with her Humulin. She is on isosorbide for her hypertension. She is on Lipitor for dyslipidemia. She is on Norvasc for hypertension. She is on Plavix. She is on metoprolol. She is on a heart-healthy diet. I will order x-rays of her hands and her neck. Jose Berkowitz MD
[2018-10-04] MEDS: Insulin Reg-MEDIUM-Coverage SC SCH ×4 (07:00→22:06)
[2018-10-04] MEDS: Metoprolol Succinate 100 mg XL Tab PO SCH (08:32)
--- NOTE | 2018-10-04 09:49 | PN ---
DATE: 10/04/2018 SUBJECTIVE: The patient has no complaint of any chest pain, no shortness of breath or headaches or dizziness. PHYSICAL EXAMINATION: VITAL SIGNS: Temperature is 98.5, pulse of 77, blood pressure 161/81 and respirations 20. GENERAL: The patient is lying in bed, flat, comfortable. HEENT: No oral lesion. Anicteric sclerae. Moist mucosa. NECK: No JVD, adenopathy, or thyromegaly. CARDIOVASCULAR: S1 and S2, regular. No murmurs, rubs, or gallops. LUNGS: Clear to auscultation bilaterally. No wheeze, rales, or rhonchi. ABDOMEN: Bowel sounds are positive, soft, nontender and nondistended. EXTREMITIES: No cyanosis, clubbing or edema. LABORATORY DATA: The patient had a cervical spine x-ray that shows a 7 mm anterior subluxation of C4 and C5. There is multilevel facet degeneration the left hand, it is a negative study. ASSESSMENT: 1. Degenerative joint disease of cervical spine. 2. Syncope, resolved. 3. Gait dysfunction. 4. Coronary artery disease. 5. Hypertension. 6. Dyslipidemia. 7. HORACIO INHIBITOR ALLERGIC REACTION WITH SWELLING. 8. Osteoarthritis. PLAN: The patient is currently comfortable. The patient is on isosorbide for her high blood pressure. She is also on Norvasc for her hypertension. Her blood pressure does fluctuate. She is on Lipitor for dyslipidemia. The patient is receiving metoprolol daily. I will place her on clonidine 0.1 mg twice a day to help with her blood pressure control. She is not able to take because of her side effects. Jose Berkowitz MD
[2018-10-04 16:42] VITALS: RESP 18; TEMP 98.2
[2018-10-04] MEDS: guaiFENesin DM 100 mg-10 mg/5 ml UD PO PRN (21:26)
[2018-10-05] MEDS: Insulin Reg-MEDIUM-Coverage SC SCH ×2 (06:47→12:22)
[2018-10-05] MEDS: guaiFENesin DM 100 mg-10 mg/5 ml UD PO PRN (08:16)
[2018-10-05] MEDS: Metoprolol Succinate 100 mg XL Tab PO SCH (08:16)
[2018-10-05 10:14] VITALS: BP 139/72
[2018-10-05 14:07] VITALS: PULSE 65; O2SAT 97
--- NOTE | 2018-10-05 20:39 | DS ---
HISTORY OF PRESENT ILLNESS: The patient has no complaints of any chest pain or shortness of breath. No headaches. She initially came to the hospital because of a syncope that had resolved. The patient was getting physical therapy and had improvement of her symptoms. She is able to walk better. She does have chronic neck pain and she does have DJD. The patient is going to be discharged home today. She has no complaints of any headaches or dizziness. No chest pain or shortness of breath. PHYSICAL EXAMINATION: VITAL SIGNS: Temperature is 98.2, pulse of 69, blood pressure 141/67, respirations 18, O2 saturation is 95%. GENERAL: The patient lying in bed, uncomfortable, and in no acute distress. HEENT: Atraumatic and normocephalic. Anicteric sclerae. Moist mucosa. [place] conjunctivae. No oral lesions. NECK: No JVD, anterior and posterior adenopathy, thyromegaly, or bruits. CARDIOVASCULAR: S1 and S2 regular. No murmur, rubs, or gallop. LUNGS: Clear to auscultation bilaterally. No wheezes, rales, or rhonchi. ABDOMEN: Bowel sounds are positive. Soft, nontender and nondistended. No hepatosplenomegaly. No rebound and no guarding EXTREMITIES: No cyanosis, clubbing, or edema. NEUROLOGIC: No facial asymmetry. Tongue is midline. No vulva deviation. Power is 5/5 upper extremity and lower extremity. Sensation intact in upper extremity and lower extremity. PSYCHIATRIC: She is awake, alert and oriented x3. No anxiety or depression. She has normal affect. GENITOURINARY: No CVA tenderness. VASCULAR: 2+ pulses in the carotid pulses and pedal pulses. SKIN: No erythema or nodules SPINE: Shows normal curvature. ASSESSMENT: 1. Degenerative disk disease of cervical neck. 2. Syncope, resolved. 3. Gait dysfunction. 4. Coronary artery disease. 5. Hypertension. 6. Dyslipidemia. 7. HORACIO inhibitor allergy, allergic reaction with swelling. 8. Osteoarthritis. PLAN: The patient is currently comfortable. Her fingerstick is 207 today. Blood pressure is controlled. I will place her on hydrochlorothiazide. She is on Norvasc for hypertension. She is on Plavix. She is going to continue with Lipitor for dyslipidemia. She is on Toprol daily. She is on a heart-healthy diet. CONDITION: Stable. ACTIVITIES: Increase as tolerated. Follow up with Dr. Zaidi in 1 to 2 weeks. Jose Berkowitz MD
== END 2018-10-05 15:14 | disposition home or self-care (01) | DRG 93 ==
LOC: TRCU 14:38
PROVIDERS: ADMIT Internal Medicine Nephrology; ATTEND Internal Medicine Nephrology
PROC: F07Z9FZ Gait Training/Functional Ambulation Treatment using Assistive, Adaptive, Supportive or Protective Equipment (ICD-10-PCS; principal; 2018-09-30)
PROC: F07Z5ZZ Bed Mobility Treatment (ICD-10-PCS; 2018-09-30)
PROC: F07L6YZ Therapeutic Exercise Treatment of Musculoskeletal System - Lower Back / Lower Extremity using Other Equipment (ICD-10-PCS; 2018-09-30)
PROC: F08Z1ZZ Dressing Techniques Treatment (ICD-10-PCS; 2018-10-01)
PROC: F08Z2ZZ Grooming/Personal Hygiene Treatment (ICD-10-PCS; 2018-10-02)
DX: R26.9 Unspecified abnormalities of gait and mobility (principal); I12.9 Hypertensive chronic kidney disease with stage 1 through stage 4 chronic kidney disease, or unspecified chronic kidney disease; N18.9 Chronic kidney disease, unspecified; M47.812 Spondylosis without myelopathy or radiculopathy, cervical region; E11.22 Type 2 diabetes mellitus with diabetic chronic kidney disease; I25.10 Atherosclerotic heart disease of native coronary artery without angina pectoris; R55 Syncope and collapse; E78.5 Hyperlipidemia, unspecified; G89.29 Other chronic pain; M19.90 Unspecified osteoarthritis, unspecified site; Z79.82 Long term (current) use of aspirin; Z79.4 Long term (current) use of insulin

== ENCOUNTER 2019-02-04 03:45 | Observation (INO) | payer MEDICARE, BC, OTHER | END 2019-02-05 16:51 | disposition home or self-care (01) | LOC: ED 03:45 → ERH 05:28 → 2RNO 17:21 ==